=== PATIENT | female | born 1940 | race Caucasian/White ===

== ENCOUNTER 2020-07-13 07:25 | Day surgery (SDC) | payer MEDICARE, SELFPAY ==
[2020-06-20 14:17] VITALS: BMI 26.4
[2020-07-13] VITALS (7 sets, daily range): BP systolic 111–131; BP diastolic 49–95; PULSE 69–83; RESP 16; TEMP 36.1–36.6; O2SAT 98–100; BMI 28.8
--- NOTE | 2020-07-13 07:43 | HP.PCM_ITS ---
History and Physical Date of Admission: 07/13/20 Date of Service:? 06/20/20 MR#:[id number] Acct:[id number] Name:JANE QUEEN :1940 ?Age/Sex:?80/F Provider:Dr. Susi Low MD ? Rep #:[id number] Location:[facility] Status:Signed Intake Vital Signs ? 06/20/2113:17 Height 5 ft 1 in Weight: 140 lb BMI 26.4 BP 168/84 H Blood Pressure Location Rt brachial Position Sitting Respiration 16 Pulse 63 Pulse Source Monitor Temp 97.7 F L Temp Source Temporal Pulse Oximetry (%) 97 Oxygen Delivery Method room air Intake Visit Reasons:?[employer] Required: No Is patient in pain?: No Allergies No Known Allergies Allergy (Verified 06/20/20 14:18) Medications atenolol 50 mg-chlorthalidone 25 mg tablet 1 tab PO DAILY? tab 06/20/20 [History Confirmed 06/20/20] lovastatin 10 mg tablet 10 mg PO DAILY? tab 06/20/20 [History Confirmed 06/20/20] PFSH Medical History?(Updated 06/21/20 @ 09:[address] Susi Low MD) Arthritis Family history of colon cancer Hx of thyroid cancer Surgical History?(Updated 06/20/20 @ 14:13 by Maria Guadalupe Wolf) History of partial thyroidectomy History of tonsillectomy History of tubal ligation Hx of cataract extraction Hx of colonoscopy Family History?(Updated 06/20/20 @ 14:16 by Maria Guadalupe Wolf) Mother Colon cancer HypertensionSister Hypertension Breast cancerFather Heart disease HypertensionBrother Diabetes Social History?(Updated 06/20/20 @ 14:17 by Maria Guadalupe Wolf) alcohol intake:? current alcohol intake frequency: holidays/special occasions only substance use type:? does not use caffeine:? Yes what type of physical activity do you participate in:? none frequency:? does not exercise HPI HPI HPI: JANE MABRY, is a 80 F who presents to the office today for HPI HPI HPI: JANE MABRY, is a 80 F who presents to the office today for screening for colon cancer due to family history.? Patient's mom was diagnosed age 69 and at age 72 due to recurrence.? Patient states last colonoscopy was 7 to 8 years ago negative per patient.? Patient states she has bowel movements daily denies any blood denies any abdominal pain/nausea/vomiting/reflux. ROS Cardio Cardiovascular: No chest pain Psych Psychiatric: No depression or anxiety Gastro Gastrointestinal: No abdominal pain, No nausea or vomiting, No diarrhea, No constipation, No blood in stool, No acid reflux, No hemorrhoids, No ulcers, No gallbladder problem and No black,tarry stools Exam Const General: cooperative, healthy appearing, comfortable and no acute distress Neck Neck: normal visual inspection Resp Effort & Inspection: normal respiratory effort Cardio Rate: regular rate GI Inspection: non-distended Palpation: soft, no guarding and nontender Skin General: no rashes or lesions noted Neuro General: patient oriented x3 Psych Affect: normal affect COVID (Procedure Consent) Procedure Criteria Procedure Criteria: Yes Elective?The surgeon/proceduralist and patient have discussed in detail the risk of exposure to and/or potential harm posed by the COVID-19 virus with having a surgery/procedure at this time versus the risk of? delaying the surgery/procedure. It is not possible to know either the risk of delaying the surgery or procedure or chance of getting an infection with perfect accuracy, but a joint decision was made between the patient and the surgeon/proceduralist ?to proceed at this time with the scheduled surgery/procedure as indicated on the consent form. Assessment and Plan Assessment and Plan (1) Family history of colon cancer: ?Status:?Acute ?Plan - Dr. Susi Low MD: I have discussed the above with the patient. I have offered the patient colonoscopy for evaluation.? Patient requested 07/13 I have explained the risks/benefits of the procedure and described the procedure.? I have discussed the risks with the patient, including but not limited to:? infection, bleeding, perforation of the GI tract requiring emergency surgery, inability to complete the procedure, injury to any internal organs, complications of anesthesia, etc. - the patient understands and agrees to proceed. I have answered all the patient's questions to the patient's satisfaction and the patient has no further questions. The patient has been given instructions for the colon cleansing preparation.? 1 day clears, MiraLAX Dulcolax split prep Susi Low M.D. Pager: [phone] [facility] [address] [place] [address], [facility], [address] [place] [address] Office: [phone] Coding Level of Care Code Off vis,new,level 3 Diagnoses Family history of colon cancer? Z80.0 06/21/20 0921 <Electronically signed by Susi Low MD> Date Susi Low MD
[2020-07-13] MEDS: Lactated Ringers 1,000 ML 100 ML IV (07:55)
--- NOTE | 2020-07-13 09:03 | OP.CCLET_ITS ---
07/13/2020 Tian Cross Md Re : Colonoscopy procedure for Aileen Juarez [place] This procedure was performed on Monday, July 13, 2020. My impressions and recommendations are as follows: Impressions : - Diverticulosis in the sigmoid colon and in the descending colon. - The entire examined colon is normal on direct and retroflexion views. - No specimens collected. Recommendations : - Discharge patient to home. - Resume previous diet. - Continue present medications. - Repeat colonoscopy in 5 years for surveillance. My findings are described in the full procedure note, which is enclosed. If I can be of further assistance, please feel free to contact me at Doctor phone number(s): , Work: . Sincerely, MD Susi Claire MD 07/13/2020 9:03:06 AM This report has been signed electronically.
--- NOTE | 2020-07-13 09:03 | OP.COLON_ITS ---
Patient Name: Aileen Juarez Procedure Date: 07/13/2020 8:24 AM Date of : 1940 Age: 80 Procedure: Colonoscopy Indications: Family history of colon cancer in a first-degree relative Providers: Susi Low MD Referring MD: Tian Cross Md Medicines: Monitored Anesthesia Care Patient Profile: This is a 80 year old female. Last Colonoscopy: 7 years ago. Complications: No immediate complications. Procedure: Pre-Anesthesia Assessment: - Prior to the procedure, a History and Physical was performed, and patient medications and allergies were reviewed. The patient's tolerance of previous anesthesia was also reviewed. The risks and benefits of the procedure and the sedation options and risks were discussed with the patient. All questions were answered, and informed consent was obtained. Prior Anticoagulants: The patient has taken no previous anticoagulant or antiplatelet agents. ASA Grade Assessment: Per anesthesia. After reviewing the risks and benefits, the patient was deemed in satisfactory condition to undergo the procedure. After I obtained informed consent, the scope was passed under direct vision. Throughout the procedure, the patient's blood pressure, pulse, and oxygen saturations were monitored continuously. The colonoscope was introduced through the anus and advanced to the cecum, identified by the appendiceal orifice, ileocecal valve and palpation. The colonoscopy was performed without difficulty. The colonoscopy was somewhat difficult due to a tortuous colon. The patient tolerated the procedure well. The quality of the bowel preparation was good. Scope In: 8:34:05 AM Scope Withdrawal Time 0 hours 8 minutes 27 seconds Scope Out: 8:54:13 AM Total Procedure Duration Time 0 hours 20 minutes 8 seconds Findings: A few small-mouthed diverticula were found in the sigmoid colon and descending colon. The perianal and digital rectal examinations were normal. The entire examined colon appeared normal on direct and retroflexion views. Impression: - Diverticulosis in the sigmoid colon and in the descending colon. - The entire examined colon is normal on direct and retroflexion views. - No specimens collected. Recommendation: - Discharge patient to home. - Resume previous diet. - Continue present medications. - Repeat colonoscopy in 5 years for surveillance. Procedure Code(s): --- Professional --- 75985, PT, Colonoscopy, flexible; diagnostic, including collection of specimen(s) by brushing or washing, when performed (separate procedure) Diagnosis Code(s): --- Professional --- Z80.0, Family history of malignant neoplasm of digestive organs K57.30, Diverticulosis of large intestine without perforation or abscess without bleeding CPT copyright 2017 [employer]. All rights reserved. The codes documented in this report are preliminary and upon harbor [employer] police review may be revised to meet current compliance requirements. MD Susi Claire MD 07/13/2020 9:03:06 AM This report has been signed electronically. Number of Addenda: 0 Note Initiated On: 07/13/2020 8:24 AM
== END 2020-07-13 10:00 ==
LOC: EN 07:26 → AC 07:28
PROVIDERS: PCP Family Medicine; Referring Provider Family Medicine; Visit Provider Surgery
PROC: 0DJD8ZZ Inspection of Lower Intestinal Tract, Via Natural or Artificial Opening Endoscopic (ICD-10-PCS; CPT 45378; principal; 2020-07-13 08:40)
DX: Z12.11 Encounter for screening for malignant neoplasm of colon (principal); K57.30 Diverticulosis of large intestine without perforation or abscess without bleeding; M19.90 Unspecified osteoarthritis, unspecified site; I10 Essential (primary) hypertension; E78.00 Pure hypercholesterolemia, unspecified; Z79.899 Other long term (current) drug therapy; Z85.850 Personal history of malignant neoplasm of thyroid; Z86.718 Personal history of other venous thrombosis and embolism; Z97.0 Presence of artificial eye; Z80.0 Family history of malignant neoplasm of digestive organs
CPT/HCPCS: G0105; J7120; J2405

== ENCOUNTER → 2020-11-28 09:42 | Outpatient (CLI) | payer MEDICARE, SELFPAY ==
[2020-11-28 12:21] LABS: AST(SGOT) 21 U/L (15-37); Alanine Aminotransfer ALT/SGPT 25 U/L (13-56); Albumin, Serum 3.7 g/dL (3.2-5.0); Alkaline Phosphatase 60 U/L (45-117); Anion Gap 9 (5-15); BUN 24 mg/dL (7-18); BUN/Creat Ratio 20.9 RATIO (10-20); Calcium,Total 9.6 mg/dL (8.5-10.1); Chloride 95 mmol/L (98-107); Cholesterol 183 mg/dL (200); Creatinine, Serum 1.15 mg/dL (0.55-1.02); EST Glomerular Filtration Rate 48 mL/min (>60); Est Glom Filt Rate - Afr Amer 59 mL/min (>60); Globulin 3.8 g/dL (2.2-4.2); Glucose 82 mg/dL (74-106); High Density Lipoprotein 74 mg/dL; Potassium 4.1 mmol/L (3.5-5.1); Protein, Total 7.5 g/dL (6.4-8.2); Sodium Level 132 mmol/L (136-145); Triglycerides 55 mg/dL; Very Low Density Lipoprotein 11 mg/dL (5-40)
== END ==
PROVIDERS: PCP Family Medicine; Visit Provider Family Medicine
DX: I10 Essential (primary) hypertension (principal)
CPT/HCPCS: 36415; 80053; 80061

== ENCOUNTER → 2020-12-14 10:03 | Outpatient (CLI) | payer MEDICARE, SELFPAY ==
[2020-12-14 10:07] LABS: Mucous, Urine 0 SEEN /hpf (<or=2+); Red Blood Cells-Urine 0 SEEN /hpf (0-5); Squamous Epithelial Cells - UA 0 SEEN /hpf (5-10)
[2020-12-14 12:00] LABS: Absolute Neutrophil Count 3.3 X10^3/uL (2.0-7.7); Basophil# 0.04 X10^3/uL; Basophil% 0.8 % (0-1); Eosinophil# 0.33 X10^3/uL; Eosinophils% 6.3 % (0-5); Hematocrit 40.1 % (37-47); Hemoglobin 13.2 g/dL (12.0-15.0); Mean Corp Hgb Conc 32.9 g/dL (32-36); Mean Corpuscular Hgb 29.2 pg (27.0-32.0); Mean Corpuscular Volume 88.7 fL (81-99); Mean Platelet Vol. 12.7 fl (6.2-12.0); Monocyte# 0.49 X10^3/uL; Monocyte% 9.3 % (0-10); NRBC Flagged by Analyzer 0 % (0-5); Neutrophil # 3.27 X10^3/uL (2.7-7.7); Neutrophil % 62.2 % (47-70); Platelet Count 220 K/mm3 (150-450); RBC Distribution Width CV 11.9 % (11.6-14.6); RBC Distribution Width SD 38.8 fl (35.1-43.9); Red Blood Count 4.52 M/mm3 (4.2-5.4); White Blood Count 5.3 K/mm3 (4.4-11.0)
[2020-12-14 12:08] LABS: Color, Urine Yellow (Yellow); Glucose, Dipstick Normal (Normal); Ketone-Dipstick Negative (Negative); Leukocyte Esterase-Dipstick 25 /ul (Negative); Nitrite-Dipstick Negative (Negative); Occult Blood-Urine Negative /ul (Negative); Protein-Dipstick Negative (Negative); Urine Bilirubin Dipstick Negative (Negative); Urine Clarity Clear (Clear); Urine Urobilinogen Normal (Normal)
[2020-12-14 12:14] LABS: Bacteria 2+ /hpf (None Seen); White Blood Cells 0-5 SEEN /hpf (0-5)
[2020-12-14 12:28] LABS: Anion Gap 9 (5-15); BUN 23 mg/dL (7-18); BUN/Creat Ratio 23.9 RATIO (10-20); Calcium,Total 9.4 mg/dL (8.5-10.1); Chloride 95 mmol/L (98-107); Creatinine, Serum 0.96 mg/dL (0.55-1.02); EST Glomerular Filtration Rate 60 mL/min (>60); Est Glom Filt Rate - Afr Amer 72 mL/min (>60); Glucose 86 mg/dL (74-106); Phosphorus 2.9 mg/dL (2.5-4.9); Potassium 3.9 mmol/L (3.5-5.1); Sodium Level 131 mmol/L (136-145); Thyroid Stim Hormone (TSH) 2.32 uIU/mL (0.358-3.74)
[2020-12-14 13:28] LABS: Protein, Urine (Random) 17.3 mg/dL (<11.9); Protein:Creat Ratio 212 mg/g CRE (0-200)
[2020-12-14 13:28] LABS: PTHIN 45.3 pg/mL (18.4-80.1)
== END ==
PROVIDERS: PCP Family Medicine; Referring Provider Family Medicine; Visit Provider Family Medicine
DX: I12.9 Hypertensive chronic kidney disease with stage 1 through stage 4 chronic kidney disease, or unspecified chronic kidney disease (principal); N18.30 Chronic kidney disease, stage 3 unspecified
CPT/HCPCS: 36415; 80048; 81001; 82570; 83970; 84100; 84156; 84443; 85025

== ENCOUNTER → 2020-12-20 13:43 | Outpatient (CLI) | payer MEDICARE, SELFPAY ==
--- NOTE | 2020-12-20 13:52 | BD_ITS ---
STUDY: DUAL ENERGY X-RAY ABSORPTIOMETRY / DXA REASON FOR EXAM: Female, 80 years old. Z780. Patient is postmenopausal. TECHNIQUE: Bone Mineral Density (BMD) measurements of lumbar spine and bilateral hips were obtained. COMPARISON: None. FINDINGS: Lumbar Spine (L1-L4): g/cm2 (0.998) / T-score (-0.2) / Z-score (2.4) Findings are suggestive of normal bone density with a low fracture risk. Left Femur Total: g/cm2 (0.863) / T-score (-0.6) / Z-score (1.3) Left Femoral Neck: g/cm2 (0.758) / T-score (-0.8) / Z-score (1.4) Right Femur Total: g/cm2 (0.834) / T-score (-0.9) / Z-score (1.1) Right Femoral Neck: g/cm2 (0.686) / T-score (-1.5) / Z-score (0.8) BD/Dexa Bone Density Study IMPRESSION: The patient is considered osteopenic as outlined below according to [employer] (WHO) criteria with a low fracture risk. Reference Information: The T-score is the number of standard deviations above or below the standard which is normal for young adults at their peak bone mineral density. The World Health Organization (WHO) interprets the T-scores as follows: Above -1 Normal bone density Between -1 and -2.5 Osteopenia Equal to / or below -2.5 Osteoporosis As a practical clinical guideline, osteopenia may be graded as follows: Mild -1 through -1.5 Moderate -1.6 through -2.0 Severe -2.1 through -2.4 The Z-score is the number of standard deviations above or below age-matched controls. A Z-score of less than -1.5 would be considered abnormal. References: 1. NIH Osteoporosis and Related Bone Diseases www osteo.org 2. International Society for Clinical Densitometry www iscd.org 3. National Osteoporosis Foundation www nof.org Electronically Signed: Eliu Sloan MD at 12:56 EDT , Service support ,
== END ==
PROVIDERS: PCP Family Medicine; Visit Provider Family Medicine
DX: Z78.0 Asymptomatic menopausal state (principal); M85.80 Other specified disorders of bone density and structure, unspecified site
CPT/HCPCS: 77080

== ENCOUNTER → 2021-01-20 08:21 | Outpatient (CLI) | payer MEDICARE, SELFPAY ==
[2021-01-20 10:26] LABS: Anion Gap 5 (5-15); BUN 18 mg/dL (7-18); BUN/Creat Ratio 17.8 RATIO (10-20); Calcium,Total 10.1 mg/dL (8.5-10.1); Chloride 101 mmol/L (98-107); Creatinine, Serum 1.01 mg/dL (0.55-1.02); EST Glomerular Filtration Rate 56 mL/min (>60); Est Glom Filt Rate - Afr Amer 68 mL/min (>60); Glucose 88 mg/dL (74-106); Potassium 3.9 mmol/L (3.5-5.1); Sodium Level 136 mmol/L (136-145)
== END ==
PROVIDERS: PCP Family Medicine; Referring Provider Family Medicine; Visit Provider Family Medicine
DX: I10 Essential (primary) hypertension (principal)
CPT/HCPCS: 36415; 80048

== ENCOUNTER → 2021-07-03 | Outpatient (CLI) | payer MEDICARE, SELFPAY ==
[2021-07-03 12:24] LABS: Anion Gap 5 (5-15); BUN 18 mg/dL (7-18); BUN/Creat Ratio 17.3 RATIO (10-20); Calcium,Total 9.7 mg/dL (8.5-10.1); Chloride 100 mmol/L (98-107); Creatinine, Serum 1.04 mg/dL (0.55-1.02); EST Glomerular Filtration Rate 54 mL/min (>60); Est Glom Filt Rate - Afr Amer 66 mL/min (>60); Glucose 79 mg/dL (74-106); Potassium 3.9 mmol/L (3.5-5.1); Sodium Level 135 mmol/L (136-145)
== END | disposition home or self-care (01) ==
LOC: BIMLAB 10:31
PROVIDERS: PCP Internal Medicine; Referring Provider Internal Medicine; Visit Provider Internal Medicine
DX: I10 Essential (primary) hypertension (principal)
CPT/HCPCS: 36415; 80048

== ENCOUNTER → 2021-10-16 | Outpatient (CLI) | payer MEDICARE, SELFPAY ==
--- NOTE | 2021-10-16 07:03 | BI_ITS ---
MAMMOGRAPHY - BILATERAL SCREENING REASON FOR EXAM: Female, 81 years old. Routine annual screening examination. PERTINENT HISTORY: Sister with breast cancer. Aunt with breast cancer. TECHNIQUE: Digital bilateral breast eliz (3D mammographic acquisition) in the CC and MLO projections. 2-D mediolateral oblique (MLO) and craniocaudad (CC) views of both breasts were obtained. CAD: Full Field Digital Mammography with Computer Added Detection was performed. COMPARISON: No comparison mammograms available at this time. If any prior films become available, an addendum to this report can be generated. FINDINGS: Breast Composition: The breasts are heterogeneously dense, which may obscure small masses. There are no dominant masses or suspicious calcifications. Small benign-appearing bilateral axillary lymph nodes. No other significant abnormalities are identified. BI/SCRN MAMM (CAD)W/ELIZ BILAT IMPRESSION: Negative screening mammogram. Yearly followup mammogram recommended. (A) ASSESSMENT CATEGORY: BIRADS Category 2: Benign. A letter regarding these results will be sent to the patient by the facility within 30 days. Approximately 10% of breast cancers are not detected by mammography. A normal mammogram should not delay biopsy of a clinically suspicious abnormality. [id number] Electronically Signed: Eliu Sloan MD at 8:43 EDT ,
== END | disposition home or self-care (01) ==
LOC: OPBI 07:02
PROVIDERS: PCP Internal Medicine; Visit Provider Internal Medicine
DX: Z12.31 Encounter for screening mammogram for malignant neoplasm of breast (principal)
CPT/HCPCS: 77063; 77067

== ENCOUNTER → 2022-01-10 | Outpatient (CLI) | payer MEDICARE, SELFPAY ==
[2022-01-10 12:32] LABS: Absolute Lymphocyte Count 1.69 X10^3/uL (0.83-4.51); Absolute Neutrophil Count 4.3 X10^3/uL (2.0-7.7); Basophil# 0.04 X10^3/uL; Basophil% 0.6 % (0-1); Eosinophil# 0.15 X10^3/uL; Eosinophils% 2.2 % (0-5); Hematocrit 39.4 % (37-47); Lymphocyte # 1.69 X10^3/ul (0.83-4.51); Lymphocyte % 25.1 % (19-41); Mean Corpuscular Hgb 29.5 pg (27.0-32.0); Mean Corpuscular Volume 89.3 fL (81-99); Monocyte# 0.52 X10^3/uL; Monocyte% 7.7 % (0-10); NRBC Flagged by Analyzer 0 % (0-5); Neutrophil # 4.32 X10^3/uL (2.7-7.7); Neutrophil % 64.1 % (47-70); Platelet Count 247 K/mm3 (150-450); RBC Distribution Width SD 42.8 fl (35.1-43.9); Red Blood Count 4.41 M/mm3 (4.2-5.4); White Blood Count 6.7 K/mm3 (4.4-11.0)
[2022-01-10 13:02] LABS: ALB/GLOB Ratio 1.2 RATIO (0.9-2.4); AST(SGOT) 19 U/L (15-37); Alanine Aminotransfer ALT/SGPT 19 U/L (13-56); Albumin, Serum 3.7 g/dL (3.2-5.0); Alkaline Phosphatase 67 U/L (45-117); Anion Gap 5 (5-15); BUN 22 mg/dL (7-18); BUN/Creat Ratio 20.8 RATIO (10-20); Calcium,Total 9.8 mg/dL (8.5-10.1); Chloride 101 mmol/L (98-107); Cholesterol 176 mg/dL (200); Creatinine, Serum 1.06 mg/dL (0.55-1.02); EST Glomerular Filtration Rate 53 mL/min (>60); Est Glom Filt Rate - Afr Amer 64 mL/min (>60); Globulin 3.2 g/dL (2.2-4.2); Glucose 81 mg/dL (74-106); High Density Lipoprotein 70 mg/dL; Potassium 4.3 mmol/L (3.5-5.1); Protein, Total 6.9 g/dL (6.4-8.2); Sodium Level 137 mmol/L (136-145); Triglycerides 82 mg/dL; Very Low Density Lipoprotein 16 mg/dL (5-40)
== END | disposition home or self-care (01) ==
LOC: BIMLAB 11:27
PROVIDERS: PCP Internal Medicine; Referring Provider Internal Medicine; Visit Provider Internal Medicine
DX: I10 Essential (primary) hypertension (principal)
CPT/HCPCS: 36415; 80053; 80061; 85025

== ENCOUNTER → 2022-07-05 | Outpatient (CLI) | payer MEDICARE, SELFPAY ==
--- NOTE | 2022-07-05 06:35 | MRI_ITS ---
EXAM: MR LEFT UPPER EXTREMITY WITHOUT INTRAVENOUS CONTRAST, HUMERUS CLINICAL INDICATION: pain TECHNIQUE: Multiplanar and multisequence MR images of the right humerus without intravenous contrast. COMPARISON: No relevant prior studies available. FINDINGS: BONES/JOINTS: An os acromiale is present. No fracture. No joint effusion. No concerning marrow signal alterations. No labral tear. No concerning bone marrow signal alterations. MUSCLES: Muscles are normal. OTHER SOFT TISSUES: Suspect disrupted and retracted long of the biceps tendon. OTHER FINDINGS: No masses or fluid collections. Neurovascular structures are unremarkable. MRI/Upper Ext/No Jt/ wo IMPRESSION: No findings to explain pain. No significant internal derangement. Electronically Signed: Ty Reynolds MD at 21:23 EDT ,
== END | disposition home or self-care (01) ==
LOC: MRI 06:26
PROVIDERS: PCP Internal Medicine; Referring Provider Physician Assistant; Visit Provider Physician Assistant
DX: M79.18 Myalgia, other site (principal)
CPT/HCPCS: 73218

== ENCOUNTER → 2022-07-09 | Outpatient (CLI) | payer MEDICARE, SELFPAY ==
[2022-07-09 17:07] LABS: Anion Gap 9 (5-15); BUN 20 mg/dL (7-18); BUN/Creat Ratio 21.2 RATIO (10-20); Calcium,Total 9.6 mg/dL (8.5-10.1); Chloride 94 mmol/L (98-107); Creatinine, Serum 0.94 mg/dL (0.55-1.02); EST Glomerular Filtration Rate 61 mL/min (>60); Est Glom Filt Rate - Afr Amer 73 mL/min (>60); Glucose 105 mg/dL (74-106); Sodium Level 131 mmol/L (136-145); T4 Free Direct 1.03 ng/dL (0.76-1.46); Thyroid Stim Hormone (TSH) 1.73 uIU/mL (0.358-3.74)
== END | disposition home or self-care (01) ==
LOC: BIMLAB 15:23
PROVIDERS: PCP Internal Medicine; Referring Provider Internal Medicine; Visit Provider Internal Medicine
DX: E89.0 Postprocedural hypothyroidism (principal); I10 Essential (primary) hypertension
CPT/HCPCS: 36415; 80048; 84439; 84443

== ENCOUNTER 2022-08-06 12:16 | Emergency (ER) | payer MEDICARE, SELFPAY ==
[2022-08-06 12:17] VITALS: BP 181/103; PULSE 66; RESP 16; TEMP 36.3; O2SAT 98; BMI 30.4
--- NOTE | 2022-08-06 13:00 | CT_ITS ---
STUDY: CT BRAIN WITHOUT CONTRAST REASON FOR EXAM: Female, 82 years old. Head injury RADIATION DOSAGE (If Supplied By Facility): CTDIvol = ( 44.99 ) mGy, DLP = ( 829.85 ) mGycm TECHNIQUE: Transaxial CT imaging of the brain was performed without administration of intravenous contrast material. Individualized dose optimization techniques were used for this CT. COMPARISON: None. FINDINGS: PARENCHYMA: There is no acute bleed or infarct. There are normal white matter tracts. VENTRICLES: There is no hydrocephalus. ORBITS, MASTOID AIR CELLS AND PARANASAL SINUSES: The visualized paranasal sinuses are clear. The mastoid air cells are clear. 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 BONES: There is no skull fracture. SOFT TISSUES: There is scalp soft tissue swelling noted in the left posterior parietal region. CT/Brain/Head without Contrast IMPRESSION: No acute intracranial abnormality. Scalp soft tissue swelling in the left posterior parietal region. Electronically Signed: Hood Gagnon MD at 13:25 EDT ,
--- NOTE | 2022-08-06 14:30 | EX.ED.GENINJ ---
HPI History of Present Illness Chief Complaint: Head Injury Informant: patient Onset/Context/Timing Onset: Weeks (1) Mechanism/Context: Blunt Injury and Fall Quality of Pain: Dull Location: Occipital scalp Worsened by: Nothing Relieved by: Nothing Associated Symptoms Associated Symptoms: Negative for Parasthesias, Weakness, Loss of function, Inability to ambulate, Loss of consciousness or Amnesia Narrative Narrative: Patient presents with a head injury that occurred 1 week ago. Patient states she tripped and fell and hit the back of her head last week. Patient states her pain has been persistent. Patient describes it as dull. Patient states she still notices some swelling over her scalp area. Patient denies any loss of consciousness. Patient denies any paresthesias or weakness. Patient states nothing makes her pain better nothing makes it worse. Patient admits to some nausea but denies any vomiting. Patient denies any visual changes. [facility] Medical History Age-related cognitive decline Arthritis Bilateral impacted cerumen Breast cancer screening Cancer DVT (deep venous thrombosis) Easy bruising Family history of colon cancer Health care maintenance High cholesterol History of edema History of eye prosthesis Hx of thyroid cancer Hyperlipidemia Hypertension Leg cramps Loss of one eye Non-smoker Open wound of left forearm Osteoarthritis Stress at home Urinary tract infection Home Medications iunkneex-vtfiqnes-bny C 250 mg-herbal no.124 11.66 mg chewable tablet (Airborne Gummy) 1 tab PO DAILY 07/07/20 [History Last Taken Unknown] naproxen sodium 220 mg capsule (Aleve) 220 mg PO BID 07/07/20 [History Last Taken Unknown] calcium carbonate 600 mg calcium (1,500 mg) tablet (Calcium) 600 mg PO DAILY 06/20/21 [History Last Taken Unknown] cholecalciferol (vitamin D3) 25 mcg (1,000 unit) capsule 25 mcg PO DAILY 07/03/21 [History Last Taken Unknown] atenolol 50 mg-chlorthalidone 25 mg tablet 1 tab PO DAILY #90 tabs 10/04/21 [Rx Last Taken Unknown] lovastatin 10 mg tablet 10 mg PO DAILY #90 tabs 10/04/21 [Rx Last Taken Unknown] Allergy/AdvReac Type Severity Reaction Status Date / Time Penicillins Allergy Rash Verified 08/06/22 12:19 Sulfa (Sulfonamide Allergy Rash Verified 08/06/22 12:19 Antibiotics) Family History Mother Colon cancer Hypertension Sister Hypertension Breast cancer Father Heart disease Hypertension Brother Diabetes Surgical History History of partial thyroidectomy History of tonsillectomy History of tubal ligation Hx of cataract extraction Hx of colonoscopy Social History Smoking Status: Never smoker alcohol intake: current alcohol intake frequency: holidays/special occasions only substance use type: does not use caffeine: Yes what type of physical activity do you participate in: walking and other details: golf frequency: 1-2 times per week ROS ROS ED Constitutional Constitutional ED: Denies chills or fever(s) Eyes Eyes: Denies blurry vision or change in vision ENT ENT ED: Denies rhinorrhea or sore throat Cardiovascular Cardiovascular: Denies chest pain or palpitations Respiratory/Chest Respiratory/Chest: Denies cough or dyspnea Gastrointestinal Gastrointestinal: Reports nausea; Denies vomiting Genitourinary Genitourinary ED: Denies dysuria or hematuria Musculoskeletal Musculoskeletal: Reports neck pain; Denies back pain Integumentary Denies abscess or rash Neurologic Neurologic: Reports headache(s); Denies weakness Allergic/Immunologic Allergic/Immunologic ED: Denies mouth swelling or urticaria EXAM Physical Exam Const Vital Signs: 08/06/22 12:17 08/06/22 12:34 Temperature 97.4 F L Temperature Source Temporal Pulse Rate 66 Respiratory Rate 16 Respiratory Effort Normal Non-Labored Respiratory Pattern Normal Blood Pressure 181/103 H Blood Pressure Mean 129 Pulse Ox 98 Oxygen Delivery Method Room Air Positive well nourished and well developed General Appearance ED: well developed HEENT Reports moist mucous membranes HEENT Narrative: There is tenderness and a mild hematoma over the occipital scalp. There is no bony crepitance or step-off noted. There are no lacerations or abrasions noted. There is no bleeding noted. trauma and tenderness Neck supple and no JVD Resp normal respiratory effort and clear to auscultation bilaterally Cardio regular rate, regular rhythm and no murmurs GI normal to inspection, nondistended, normoactive bowel sounds and non-tender Palpation: soft Extremity normal to inspection General Extremety ED: Negative for edema or tenderness General Extremity: Negative for edema Neuro oriented x3, CN's II-XII intact bilaterally and no sensory deficits noted Sensorium / Orientation: alert Motor Exam: strength 5/5 throughout Psych mental status grossly normal Skin no rashes or lesions noted MDM MDM MDM Narrative Medical decision making narrative: Differential diagnosis includes closed head injury, intracranial bleeding, and concussion. CT scan of the brain will be obtained to assess for intracranial bleeding. Radiography Diagnostic Testing: Clinical Impression(s) from Imaging Studies Brain CT 08/06/22 13:00 IMPRESSION: No acute intracranial abnormality. Scalp soft tissue swelling in the left posterior parietal region. Electronically Signed: Hood Gagnon MD at 13:25 EDT , CT scan of the brain was obtained. There is no acute intracranial abnormality. There is soft tissue swelling of the scalp with a left posterior parietal/occipital region. This was interpreted by the radiologist and was also independently reviewed by myself. Treatment and Re-Evaluation Narrative: Patient was advised of her findings. Patient was given head injury instructions. Patient was instructed use ice to the area. Patient was instructed to take Tylenol or ibuprofen as needed for any pain. Patient was instructed to follow-up with her primary care physician in 5 to 7 days. Patient understood and was agreeable with the plan. All questions were answered. Discharge Plan Triage Chief Complaint: Head Injury ED Provider: Bernardino Sandoval Dx/Rx/DC Orders Clinical Impression: Closed head injury, Fall Instructions: ED Head Injury (Adult) Prescriptions: No Action calcium carbonate [Calcium 600] 600 mg calcium (1,500 mg) tablet 600 mg PO DAILY cholecalciferol (vitamin D3) 25 mcg (1,000 unit) capsule 25 mcg PO DAILY lovastatin 10 mg tablet 10 mg PO DAILY Qty: 90 3RF atenolol-chlorthalidone 50-25 mg tablet 1 tab PO DAILY Qty: 90 3RF naproxen sodium [Aleve] 220 mg Capsule 220 mg PO BID Airborne Gummy 250-11.66 mg Tablet,Chewable 1 tab PO DAILY Primary Care Provider: Stephane Titus Referrals: Stephane Titus MD [Primary Care Provider] - 3-5 Days Disposition Disposition: Home, Self Care Discharge Date/Time: 08/06/22 14:39
== END 2022-08-06 14:39 | disposition home or self-care (01) ==
PROVIDERS: Emergency Provider Emergency Medicine; PCP Internal Medicine; Visit Provider Emergency Medicine
DX: S00.03XA Contusion of scalp, initial encounter (principal); W19.XXXA Unspecified fall, initial encounter; I10 Essential (primary) hypertension; E78.00 Pure hypercholesterolemia, unspecified; Z79.899 Other long term (current) drug therapy
CPT/HCPCS: 70450; 99282

== ENCOUNTER → 2022-10-17 | Outpatient (CLI) | payer MEDICARE, SELFPAY ==
--- NOTE | 2022-10-17 07:29 | BI_ITS ---
MAMMOGRAPHY - BILATERAL SCREENING REASON FOR EXAM: Female, 82 years old. Routine annual screening examination. PERTINENT HISTORY: Sister with breast cancer. Aunt with breast cancer. TECHNIQUE: Digital bilateral breast eliz (3D mammographic acquisition) in the CC and MLO projections. 2-D mediolateral oblique (MLO) and craniocaudad (CC) views of both breasts were obtained. CAD: Full Field Digital Mammography with Computer Added Detection was performed. COMPARISON: Comparison is made with prior study October 16, 2021. FINDINGS: Breast Composition: The breasts are heterogeneously dense, which may obscure small masses. There are no dominant masses or suspicious calcifications. Stable small benign-appearing bilateral axillary lymph nodes. No other significant abnormalities are identified. There has been no significant change since the prior study. BI/SCRN MAMM (CAD)W/ELIZ BILAT IMPRESSION: Stable bilateral screening mammogram. Yearly follow-up mammogram recommended. (A) ASSESSMENT CATEGORY: BIRADS Category 2: Benign. A letter regarding these results will be sent to the patient by the facility within 30 days. Approximately 10% of breast cancers are not detected by mammography. A normal mammogram should not delay biopsy of a clinically suspicious abnormality. [id number] Electronically Signed: Eliu Sloan MD at 11:09 EDT ,
== END | disposition home or self-care (01) ==
LOC: OPBI 07:27
PROVIDERS: PCP Internal Medicine; Referring Provider Internal Medicine; Visit Provider Internal Medicine
DX: Z12.31 Encounter for screening mammogram for malignant neoplasm of breast (principal)
CPT/HCPCS: 77063; 77067

== ENCOUNTER → 2022-11-21 | Outpatient (CLI) | payer MEDICARE, SELFPAY ==
[2022-11-21 12:34] LABS: Absolute Lymphocyte Count 1.82 X10^3/uL (0.83-4.51); Absolute Neutrophil Count 4.5 X10^3/uL (2.0-7.7); Basophil# 0.06 X10^3/uL; Basophil% 0.9 % (0-1); Eosinophil# 0.13 X10^3/uL; Eosinophils% 1.9 % (0-5); Hematocrit 42.1 % (37-47); Hemoglobin 13.1 g/dL (12.0-15.0); Lymphocyte # 1.82 X10^3/ul (0.83-4.51); Lymphocyte % 26.1 % (19-41); Mean Corp Hgb Conc 31.1 g/dL (32-36); Mean Corpuscular Hgb 28.6 pg (27.0-32.0); Mean Corpuscular Volume 91.9 fL (81-99); Mean Platelet Vol. 12.3 fl (6.2-12.0); Monocyte# 0.42 X10^3/uL; NRBC Flagged by Analyzer 0 % (0-5); Neutrophil % 64.5 % (47-70); Platelet Count 292 K/mm3 (150-450); RBC Distribution Width CV 12.4 % (11.6-14.6); RBC Distribution Width SD 42.1 fl (35.1-43.9); Red Blood Count 4.58 M/mm3 (4.2-5.4)
[2022-11-21 12:57] LABS: ALB/GLOB Ratio 1.1 RATIO (0.9-2.4); AST(SGOT) 24 U/L (15-37); Alanine Aminotransfer ALT/SGPT 28 U/L (13-56); Alkaline Phosphatase 79 U/L (45-117); Anion Gap 6 (5-15); BUN 18 mg/dL (7-18); BUN/Creat Ratio 16.1 RATIO (10-20); Calcium,Total 9.3 mg/dL (8.5-10.1); Chloride 100 mmol/L (98-107); Cholesterol 169 mg/dL (200); Creatinine, Serum 1.12 mg/dL (0.55-1.02); EST Glomerular Filtration Rate 50 mL/min (>60); Est Glom Filt Rate - Afr Amer 60 mL/min (>60); Globulin 3.5 g/dL (2.2-4.2); Glucose 115 mg/dL (74-106); High Density Lipoprotein 72 mg/dL; Potassium 3.8 mmol/L (3.5-5.1); Protein, Total 7.5 g/dL (6.4-8.2); Sodium Level 134 mmol/L (136-145); Triglycerides 67 mg/dL; Very Low Density Lipoprotein 13 mg/dL (5-40)
== END | disposition home or self-care (01) ==
LOC: BIMLAB 10:04
PROVIDERS: PCP Internal Medicine; Referring Provider Internal Medicine; Visit Provider Internal Medicine
DX: I10 Essential (primary) hypertension (principal)
CPT/HCPCS: 36415; 80053; 80061; 85025

== ENCOUNTER → 2023-01-28 | Outpatient (CLI) | payer MEDICARE, SELFPAY ==
[2023-01-28 15:55] LABS: Anion Gap 7 (5-15); BUN 23 mg/dL (7-18); BUN/Creat Ratio 21.9 RATIO (10-20); Calcium,Total 9.2 mg/dL (8.5-10.1); Chloride 100 mmol/L (98-107); Creatinine, Serum 1.05 mg/dL (0.55-1.02); EST Glomerular Filtration Rate 54 mL/min (>60); Est Glom Filt Rate - Afr Amer 65 mL/min (>60); Glucose 104 mg/dL (74-106); Potassium 4.1 mmol/L (3.5-5.1); Sodium Level 136 mmol/L (136-145)
== END | disposition home or self-care (01) ==
LOC: BIMLAB 13:45
PROVIDERS: PCP Internal Medicine; Referring Provider Internal Medicine; Visit Provider Internal Medicine
DX: I10 Essential (primary) hypertension (principal)
CPT/HCPCS: 36415; 80048

== ENCOUNTER → 2023-05-29 | Outpatient (CLI) | payer MEDICARE, SELFPAY ==
[2023-05-29 12:12] LABS: Absolute Lymphocyte Count 1.38 X10^3/uL (0.83-4.51); Absolute Neutrophil Count 4.6 X10^3/uL (2.0-7.7); Basophil# 0.05 X10^3/uL; Basophil% 0.7 % (0-1); Eosinophil# 0.17 X10^3/uL; Eosinophils% 2.5 % (0-5); Hemoglobin 13.1 g/dL (12.0-15.0); Lymphocyte # 1.38 X10^3/ul (0.83-4.51); Lymphocyte % 20.6 % (19-41); Mean Corp Hgb Conc 31.2 g/dL (32-36); Mean Corpuscular Hgb 28.8 pg (27.0-32.0); Mean Corpuscular Volume 92.3 fL (81-99); Mean Platelet Vol. 12.2 fl (6.2-12.0); Monocyte# 0.51 X10^3/uL; Monocyte% 7.6 % (0-10); NRBC Flagged by Analyzer 0 % (0-5); Neutrophil # 4.57 X10^3/uL (2.7-7.7); Neutrophil % 68.3 % (47-70); Platelet Count 300 K/mm3 (150-450); RBC Distribution Width CV 12.6 % (11.6-14.6); RBC Distribution Width SD 42.7 fl (35.1-43.9); Red Blood Count 4.55 M/mm3 (4.2-5.4); White Blood Count 6.7 K/mm3 (4.4-11.0)
[2023-05-29 13:17] LABS: AST(SGOT) 27 U/L (15-37); Alanine Aminotransfer ALT/SGPT 23 U/L (13-56); Albumin, Serum 3.9 g/dL (3.2-5.0); Alkaline Phosphatase 73 U/L (45-117); Anion Gap 6 (5-15); BUN 21 mg/dL (7-18); BUN/Creat Ratio 18.1 RATIO (10-20); Calcium,Total 9.9 mg/dL (8.5-10.1); Chloride 104 mmol/L (98-107); Creatinine, Serum 1.16 mg/dL (0.55-1.02); EST Glomerular Filtration Rate 48 mL/min (>60); Est Glom Filt Rate - Afr Amer 58 mL/min (>60); Glucose 89 mg/dL (74-106); Potassium 4.5 mmol/L (3.5-5.1); Protein, Total 7.9 g/dL (6.4-8.2); Sodium Level 137 mmol/L (136-145)
== END | disposition home or self-care (01) ==
LOC: BIMLAB 09:31
PROVIDERS: PCP Internal Medicine; Referring Provider Internal Medicine; Visit Provider Internal Medicine
DX: I10 Essential (primary) hypertension (principal); E78.5 Hyperlipidemia, unspecified
CPT/HCPCS: 36415; 80053; 85025

== ENCOUNTER → 2023-06-11 | Outpatient (CLI) | payer MEDICARE, SELFPAY | END | disposition home or self-care (01) | LOC: LABSPEC 08:33 | PROVIDERS: PCP Internal Medicine; Visit Provider Internal Medicine | DX: R19.4 Change in bowel habit (principal); R10.9 Unspecified abdominal pain | CPT/HCPCS: 87493 ==

== ENCOUNTER → 2023-06-12 | Outpatient (CLI) | payer MEDICARE, SELFPAY ==
--- NOTE | 2023-06-12 16:56 | CT_ITS ---
STUDY: CT ABDOMEN AND PELVIS WITH CONTRAST REASON FOR EXAM: Female, 83 years old. Abdominal Pain, Change in bowel movement RADIATION DOSAGE (If Supplied By Facility): CTDIvol = ( 14.22 ) mGy, DLP = ( 875.23 ) mGycm TECHNIQUE: Transaxial images were obtained from the dome of the diaphragm to the symphysis pubis with oral contrast. Oral and amp; IV Readi-CAT and amp; 100mL Isovue-300 was administered. Sagittal and coronal images were reconstructed. Individualized dose optimization techniques were used for this CT. COMPARISON: None. FINDINGS: There is a 1.8 cm x 1.2 cm noncalcified nodule in the posterior medial aspect of the right lower lobe. Correlation with a dedicated CT scan of the thorax is recommended for further evaluation. No coronary calcification is seen. Normal liver. Normal gallbladder and extrahepatic biliary system. Normal spleen. Normal pancreas. 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 Normal right kidney. Normal left kidney. The stomach is filled with residual food particles and oral contrast. Normal small intestine. Moderate amount of fecal material is seen in the colon. Scattered sigmoid diverticula. The appendix is visualized and appears normal. Normal abdominal aorta. Normal inferior vena cava. Normal retroperitoneum. Normal urinary bladder. Normal abdominal wall. There are diffuse degenerative changes of the visualized lumbar spine. Straightening of the normal lumbar lordosis. CT/Abdomen/Pelvis WITH Contrast IMPRESSION: 1.8 cm x 1.2 cm noncalcified nodule in the posterior medial aspect of the right lower lobe. Correlation with a dedicated CT scan of the chest is recommended. Sigmoid diverticulosis. Stomach is filled with oral contrast and residual food particles. Electronically Signed: Eliu Sloan MD at 13:52 EDT ,
== END | disposition home or self-care (01) ==
PROVIDERS: PCP Internal Medicine; Referring Provider Internal Medicine; Visit Provider Internal Medicine
DX: R10.9 Unspecified abdominal pain (principal); Z80.0 Family history of malignant neoplasm of digestive organs; R19.4 Change in bowel habit
CPT/HCPCS: 74177; Q9967

== ENCOUNTER → 2023-06-13 | Outpatient (CLI) | payer MEDICARE, SELFPAY ==
[2023-06-13 17:29] LABS: Thyroid Stim Hormone (TSH) 2.19 uIU/mL (0.358-3.74)
== END | disposition home or self-care (01) ==
LOC: BIMLAB 15:18
PROVIDERS: PCP Internal Medicine; Visit Provider Internal Medicine
DX: R19.7 Diarrhea, unspecified (principal)
CPT/HCPCS: 36415; 84439; 84443

== ENCOUNTER → 2023-06-14 | Outpatient (CLI) | payer MEDICARE, SELFPAY | END | disposition home or self-care (01) | PROVIDERS: PCP Internal Medicine; Visit Provider Internal Medicine | DX: R19.7 Diarrhea, unspecified (principal); R19.4 Change in bowel habit | CPT/HCPCS: 82274; 83630 ==

== ENCOUNTER → 2023-06-24 | Outpatient (CLI) | payer MEDICARE, SELFPAY ==
[2023-06-26 15:09] LABS: Endomysial Antibody IgA Negative (Negative); Immunoglobulin A 113 mg/dL (64-422); t-Transglutaminase IgA <2 U/mL (0-3)
== END | disposition home or self-care (01) ==
PROVIDERS: PCP Internal Medicine; Referring Provider Internal Medicine Gastroenterology; Visit Provider Internal Medicine Gastroenterology
DX: R19.7 Diarrhea, unspecified (principal)
CPT/HCPCS: 36415; 82784; 83516; 86140; 86255

== ENCOUNTER → 2023-07-05 | Outpatient (CLI) | payer MEDICARE, SELFPAY ==
--- NOTE | 2023-07-05 13:50 | CT_ITS ---
EXAM: CT CHEST WITHOUT INTRAVENOUS CONTRAST CLINICAL INDICATION: Right Lung Nodule. Abnormal CT TECHNIQUE: Helically acquired images were obtained of the chest without intravenous contrast. This CT exam was performed using one or more of the following dose reduction techniques: automated exposure control, adjustment of the mA and/or kV according to patient size, and/or use of iterative reconstruction technique. RADIATION DOSE: CTDIvol = 9.13 mGy, DLP = 285.08 mGy-cm COMPARISON: CT abdomen and pelvis with contrast 06/12/2023. FINDINGS: LUNGS AND PLEURAL SPACES: 2.1 x 1.3 cm noncalcified and indeterminate subpleural nodule in the right posterior medial lung base. This is a solitary pulmonary nodule. Calcified granuloma in the right peripheral lung base. No pneumothorax. No other suspicious pulmonary nodules. HEART: Unremarkable. Heart size is normal. No pericardial effusion. No significant coronary artery calcifications. MEDIASTINUM: Unremarkable. No mediastinal or hilar adenopathy. Esophagus is unremarkable. No hiatal hernia. THYROID: Unremarkable. No thyroid lesions. BONES/JOINTS: T11-T12 degenerative disc space height narrowing with degenerative vacuum phenomena. No acute fractures. No lytic or blastic lesions. VASCULATURE: Unremarkable. Thoracic aorta is non-dilated. CT/Chest without Contrast IMPRESSION: 2.1 x 1.3 cm noncalcified and indeterminate subpleural nodule in the right posterior medial lung base. For low-risk or high-risk patients consider a follow-up chest CT at 3 months. If unchanged consider an additional follow-up CT at 18-24 months. Alternatively (or additionally) PET/CT or tissue sampling could be performed. Electronically Signed: Eric Cowan MD at 16:02 EDT ,
== END | disposition home or self-care (01) ==
PROVIDERS: PCP Internal Medicine; Referring Provider Internal Medicine; Visit Provider Internal Medicine
DX: R91.1 Solitary pulmonary nodule (principal); R93.89 Abnormal findings on diagnostic imaging of other specified body structures
CPT/HCPCS: 71250

== ENCOUNTER → 2023-08-28 | Outpatient (CLI) | payer MEDICARE, SELFPAY ==
[2023-08-28 13:06] LABS: Anion Gap 4 (5-15); BUN 31 mg/dL (7-18); BUN/Creat Ratio 23.3 RATIO (10-20); Calcium,Total 9.8 mg/dL (8.5-10.1); Chloride 102 mmol/L (98-107); Creatinine, Serum 1.33 mg/dL (0.55-1.02); EST Glomerular Filtration Rate 41 mL/min (>60); Est Glom Filt Rate - Afr Amer 49 mL/min (>60); Glucose 75 mg/dL (74-106); Potassium 4.4 mmol/L (3.5-5.1); Sodium Level 137 mmol/L (136-145)
== END | disposition home or self-care (01) ==
LOC: BIMLAB 09:46
PROVIDERS: PCP Internal Medicine; Referring Provider Internal Medicine; Visit Provider Internal Medicine
DX: I10 Essential (primary) hypertension (principal)
CPT/HCPCS: 36415; 80048

== ENCOUNTER → 2023-10-08 | Outpatient (CLI) | payer MEDICARE, SELFPAY ==
--- NOTE | 2023-10-08 07:54 | CT_ITS ---
STUDY: CT CHEST WITHOUT CONTRAST REASON FOR EXAM: Female, 83 years old. 3 mth FU Lung Nodule RADIATION DOSAGE (If Supplied By Facility): CTDIvol = ( 11.90 ) mGy, DLP = ( 395.47 ) mGycm TECHNIQUE: Transaxial imaging was performed without the administration of intravenous contrast material. Individualized dose optimization techniques were used for this CT. COMPARISON: Comparison is made with prior study dated July 05, 2023. FINDINGS: CHEST Once again, there is evidence of a 1.9 cm x 1.5 cm noncalcified rounded nodule in the posterior segment of the right lower lobe. This most likely is benign in nature although correlation with a PET scan is recommended for further evaluation. Stable mild scarring at the lung bases. Stable calcified granuloma in the right peripheral lung base. There is no demonstrated pleural abnormality. There are calcifications of the coronary arteries. Normal mediastinum. Normal hilar regions. Normal unenhanced pulmonary arteries. There is atherosclerotic calcification of the aortic arch. There are degenerative changes of the thoracic spine. Left adrenal hyperplasia. CT/Chest without Contrast IMPRESSION: Stable examination. The nodules most likely benign in nature although correlation with a PET scan recommended. Electronically Signed: Eliu Sloan MD at 16:00 EDT ,
== END | disposition home or self-care (01) ==
PROVIDERS: PCP Internal Medicine; Referring Provider Internal Medicine; Visit Provider Internal Medicine
DX: R93.89 Abnormal findings on diagnostic imaging of other specified body structures (principal); R91.1 Solitary pulmonary nodule
CPT/HCPCS: 71250

== ENCOUNTER → 2023-11-12 | Outpatient (CLI) | payer MEDICARE, SELFPAY ==
--- NOTE | 2023-11-12 10:00 | PET_ITS ---
EXAMINATION: FDG-PET/CT ? INDICATIONS: 83-year-old female with a history of pulmonary nodularity. ? COMPARISON EXAMINATION: CT of the chest dated 10/08/2023. TECHNIQUE: Following the intravenous administration of 15.6 mCi of F-18 deoxyglucose via the left antecubital fossa, multiplanar image acquisitions of the head, neck, chest, abdomen and pelvis to the level of the midthigh, obtained at one-hour post radiopharmaceutical administration contemporaneously interpreted with the current CT of the chest, abdomen and pelvis dated 11/12/[address] of the chest dated 10/08/2023 via coregistration reveal: ? SERUM GLUCOSE LEVEL:? 94 mg/dL? HEIGHT:?? 60 inches WEIGHT:?? 160 pounds ? FINDINGS: ? HEAD/NECK:? There is no evidence of abnormal increased glucose metabolism in the pharyngeal mucosal space, parapharyngeal space, oropharynx, bilateral-lateral and anterior neck, hypopharynx and distribution of the larynx. ? The visualized portion of the cerebral cortical-subcortical structures demonstrate symmetric and preserved glucose metabolism. ? CHEST:? There is no quantitative scintigraphic evidence of abnormal increased glucose metabolism within the context of the bilateral hemithorax pulmonary parenchyma, right and left hemithorax at the pleural interface, mediastinal structures, and left-right thoracic perihilum. The left ventricular myocardium visualization is consistent with the [place]. ? CT of the chest demonstrates the following anatomic characteristics: An ovoid noncalcified nodular density noted in the right lower posteromedial lung zone demonstrates no evidence of quantitatively significant increased FDG uptake. Bilateral axillary soft tissue densities are ametabolic.? Minimal coronary artery calcification is observed.? Atherosclerotic calcification is defined in the thoracic aorta. Calcified and noncalcified mediastinal soft tissue densities are ametabolic. ? ABDOMEN/PELVIS:? Normal physiologic distribution of the radiopharmaceutical is identified in the hepatic and splenic parenchyma, both renal units, urinary bladder, and visualized intestinal tract. Diffuse intestinal tract is identified in all four quadrants of the abdominal-pelvic mesentery. ? CT of the abdomen and pelvis is remarkable for the following: Atherosclerotic calcification is defined in the abdominal aorta without evidence of dilatation, aneurysm formation. Pelvic arterial calcification is observed. Calcification is manifest within the uterus. Colonic diverticulosis is noted without evidence of diverticulitis. ? SKELETAL:? There is no evidence of quantitatively significant enhanced glucose metabolism on meticulous inspection of the appendicular and axial skeletal structures. ? Degenerative changes defined in the thoracic and lumbar spine demonstrate no evidence of increased glucose metabolism. There are no sclerotic, mixed sclerotic-lytic, or primarily lytic changes defined in the axial skeletal structures with evidence of increased FDG uptake. ? PET/PET/CT Tumor Base -Thigh Init IMPRESSION: 1. NEGATIVE EXAMINATION. There is no definitive quantitative scintigraphic evidence of viable neoplasm. 2. Meticulous attention paid to the right lower posteromedial lung zone demonstrates no evidence of quantitatively significant increased FDG uptake to correlate with the parenchymal density-nodule defined on CT of the thorax dated 11/12/2023. 3. Anatomic stability may be ensured with repeat FDG-PET CT of the right lower posteromedial lung zone in 3-6 months if clinically indicated. (Annalise, Seminars in Thoracic and Cardiovascular surgery, 14:292, 2002). Electronic Signature Gray Eaton D.O. Accurate Quantification of SUVs for this report are calculated using the exclusive [employer]. ([place]. Patent No. [id number] [id number] B2 [phone] [place] patent [phone]). Standardization and correction of the FDG SUV metric via [employer] technology allow for vendor non-specific objective quantitative examination comparison and optimization of the sensitivity and specificity of the FDG PET-CT examination. [email or web address] ? Electronically Signed: Gray Eaton DO at 7:47 EDT ,
== END | disposition home or self-care (01) ==
PROVIDERS: PCP Internal Medicine; Referring Provider Internal Medicine; Visit Provider Internal Medicine
DX: R91.1 Solitary pulmonary nodule (principal)
CPT/HCPCS: 78815; A9552

== ENCOUNTER → 2023-11-29 | Outpatient (CLI) | payer MEDICARE, SELFPAY ==
[2023-11-29 12:52] LABS: AST(SGOT) 23 U/L (15-37); Alanine Aminotransfer ALT/SGPT 20 U/L (13-56); Albumin, Serum 3.6 g/dL (3.2-5.0); Alkaline Phosphatase 74 U/L (45-117); Anion Gap 5 (5-15); BUN 26 mg/dL (7-18); BUN/Creat Ratio 22.8 RATIO (10-20); Calcium,Total 9.8 mg/dL (8.5-10.1); Chloride 104 mmol/L (98-107); Cholesterol 177 mg/dL (200); Creatinine, Serum 1.14 mg/dL (0.55-1.02); EST Glomerular Filtration Rate 49 mL/min (>60); Est Glom Filt Rate - Afr Amer 59 mL/min (>60); Globulin 3.6 g/dL (2.2-4.2); Glucose 85 mg/dL (74-106); High Density Lipoprotein 68 mg/dL; Potassium 4.5 mmol/L (3.5-5.1); Protein, Total 7.2 g/dL (6.4-8.2); Sodium Level 137 mmol/L (136-145); Triglycerides 97 mg/dL; Very Low Density Lipoprotein 19 mg/dL (5-40)
== END | disposition home or self-care (01) ==
LOC: BIMLAB 10:12
PROVIDERS: PCP Internal Medicine; Referring Provider Internal Medicine; Visit Provider Internal Medicine
DX: I10 Essential (primary) hypertension (principal); E78.5 Hyperlipidemia, unspecified; M85.80 Other specified disorders of bone density and structure, unspecified site
CPT/HCPCS: 36415; 80053; 80061; 82306

== ENCOUNTER → 2024-06-03 | Outpatient (CLI) | payer MEDICARE, SELFPAY ==
--- NOTE | 2024-06-03 15:42 | RAD_ITS ---
PROCEDURE: L/S SPINE MIN 4 VIEWS 06/03/2024 REASON FOR EXAM: CHRONIC BACK PAIN TECHNIQUE: Four views of the lumbosacral spine were obtained. COMPARISON: None FINDINGS: Vertebrae: No acute fracture. The lumbar vertebral body heights are preserved. Discs: Advanced multilevel disc space narrowing with endplate osteophytes. Alignment: Straightening of the lumbar alignment likely due to positioning. Other: RAD/L/S Spine Min 4 Views IMPRESSION: Degenerative changes of the lumbar spine as described above. No acute fracture . Reading Location: [facility]
[2024-06-03 16:53] LABS: Absolute Lymphocyte Count 1.91 X10^3/uL (0.83-4.51); Absolute Neutrophil Count 5.4 X10^3/uL (2.0-7.7); Basophil# 0.04 X10^3/uL; Basophil% 0.5 % (0-1); Eosinophil# 0.12 X10^3/uL; Eosinophils% 1.5 % (0-5); Hematocrit 37.8 % (37-47); Hemoglobin 12.6 g/dL (12.0-15.0); Lymphocyte # 1.91 X10^3/ul (0.83-4.51); Lymphocyte % 23.4 % (19-41); Mean Corp Hgb Conc 33.3 g/dL (32-36); Mean Corpuscular Hgb 29.9 pg (27.0-32.0); Mean Corpuscular Volume 89.8 fL (81-99); Mean Platelet Vol. 12.4 fl (6.2-12.0); Monocyte# 0.65 X10^3/uL; NRBC Flagged by Analyzer 0 % (0-5); Neutrophil # 5.42 X10^3/uL (2.7-7.7); Neutrophil % 66.2 % (47-70); Platelet Count 265 K/mm3 (150-450); RBC Distribution Width CV 12.7 % (11.6-14.6); RBC Distribution Width SD 41.6 fl (35.1-43.9); Red Blood Count 4.21 M/mm3 (4.2-5.4); White Blood Count 8.2 K/mm3 (4.4-11.0)
[2024-06-03 17:27] LABS: ALB/GLOB Ratio 1.5 RATIO (0.9-2.4); AST(SGOT) 25 U/L (<=31); Alanine Aminotransfer ALT/SGPT 16 U/L (<=34); Albumin, Serum 4.3 g/dL (3.4-4.8); Alkaline Phosphatase 65 U/L (35-104); Anion Gap 11 (5-15); BUN 22 mg/dL (4-19); Calcium,Total 9.8 mg/dL (7.6-11.0); Carbon Dioxide 25.9 mmol/L (21.0-32.0); Chloride 98 mmol/L (98-108); Creatinine, Serum 1.13 mg/dL (0.70-1.20); EST Glomerular Filtration Rate 49 (>60); Globulin 2.8 g/dL (2.2-4.2); Glucose 95 mg/dL (70-99); Potassium 3.7 mmol/L (3.3-5.1); Protein, Total 7.1 g/dL (5.9-8.4); Sodium Level 135 mmol/L (133-145); Total Bilirubin < 0.15 mg/dL (0.00-1.30)
== END | disposition home or self-care (01) ==
PROVIDERS: PCP Internal Medicine; Referring Provider Internal Medicine; Visit Provider Internal Medicine
DX: M54.9 Dorsalgia, unspecified (principal); G89.29 Other chronic pain; I10 Essential (primary) hypertension
CPT/HCPCS: 36415; 72110; 80053; 85025

== ENCOUNTER → 2024-06-10 | Outpatient (CLI) | payer MEDICARE, SELFPAY ==
[2024-06-10 15:53] LABS: Absolute Neutrophil Count 12.1 X10^3/uL (2.0-7.7); Basophil# 0.02 X10^3/uL; Basophil% 0.1 % (0-1); Hematocrit 38.9 % (37-47); Hemoglobin 12.9 g/dL (12.0-15.0); Lymphocyte % 13.2 % (19-41); Mean Corp Hgb Conc 33.2 g/dL (32-36); Mean Corpuscular Hgb 29.4 pg (27.0-32.0); Mean Corpuscular Volume 88.6 fL (81-99); Mean Platelet Vol. 12.1 fl (6.2-12.0); Monocyte# 0.99 X10^3/uL; Monocyte% 6.5 % (0-10); NRBC Flagged by Analyzer 0 % (0-5); Neutrophil # 12.05 X10^3/uL (2.7-7.7); Neutrophil % 79.7 % (47-70); Platelet Count 299 K/mm3 (150-450); RBC Distribution Width CV 12.4 % (11.6-14.6); RBC Distribution Width SD 40.9 fl (35.1-43.9); Red Blood Count 4.39 M/mm3 (4.2-5.4); White Blood Count 15.1 K/mm3 (4.4-11.0)
[2024-06-10 16:54] LABS: ALB/GLOB Ratio 1.5 RATIO (0.9-2.4); AST(SGOT) 25 U/L (<=31); Alanine Aminotransfer ALT/SGPT 16 U/L (<=34); Albumin, Serum 4.2 g/dL (3.4-4.8); Alkaline Phosphatase 74 U/L (35-104); Anion Gap 14 (5-15); BUN 29 mg/dL (4-19); BUN/Creat Ratio 25.5 RATIO (10-20); Calcium,Total 9.7 mg/dL (7.6-11.0); Carbon Dioxide 22.9 mmol/L (21.0-32.0); Chloride 96 mmol/L (98-108); Creatinine, Serum 1.13 mg/dL (0.70-1.20); EST Glomerular Filtration Rate 49 (>60); Globulin 2.9 g/dL (2.2-4.2); Glucose 118 mg/dL (70-99); Potassium 3.5 mmol/L (3.3-5.1); Protein, Total 7.1 g/dL (5.9-8.4); Sodium Level 132 mmol/L (133-145); Total Bilirubin 0.21 mg/dL (0.00-1.30)
[2024-06-10 17:23] LABS: CRP < 3.00 mg/L (0.0-3.0)
[2024-06-12 11:08] LABS: ANTINUCLEAR ANTIBODIES DIRECT Negative (Negative)
[2024-06-12 14:08] LABS: CCP IgG Antibodies 8 units (0-19)
== END | disposition home or self-care (01) ==
LOC: LAB 14:04
PROVIDERS: PCP Internal Medicine; Referring Provider Podiatrist; Visit Provider Podiatrist
DX: R22.42 Localized swelling, mass and lump, left lower limb (principal)
CPT/HCPCS: 36415; 80053; 85025; 85652; 86038; 86060; 86140; 86200; 86225; 86235; 86256; 86332; 86431

== ENCOUNTER → 2024-09-02 | Outpatient (CLI) | payer MEDICARE, SELFPAY ==
--- NOTE | 2024-09-02 14:47 | RAD_ITS ---
EXAM: XR Lumbosacral Spine, 2 or 3 Views CLINICAL INDICATION: CHRONIC BACK PAIN TECHNIQUE: Frontal and lateral views of the lumbar spine and sacrum. COMPARISON: No relevant prior studies available. FINDINGS: VERTEBRAE: S shaped scoliosis. Degenerative facet arthropathy throughout the lumbar spine, most prominent in the lower lumbar spine. Normal alignment. No acute fracture. SACRUM/COCCYX: Unremarkable as visualized. No acute fracture. DISC SPACES: Degenerative disc disease throughout the lumbar spine. SOFT TISSUES: Unremarkable. RAD/Lumbar Spine 2 or 3 Views IMPRESSION: 1. No acute fracture. 2. Degenerative changes lumbar spine as described. Reading Location[facility]
--- NOTE | 2024-09-02 14:47 | RAD_ITS ---
EXAM: XR Lumbosacral Spine, 2 or 3 Views CLINICAL INDICATION: CHRONIC BACK PAIN TECHNIQUE: Frontal and lateral views of the lumbar spine and sacrum. COMPARISON: No relevant prior studies available. FINDINGS: VERTEBRAE: S shaped scoliosis. Degenerative facet arthropathy throughout the lumbar spine, most prominent in the lower lumbar spine. Normal alignment. No acute fracture. SACRUM/COCCYX: Unremarkable as visualized. No acute fracture. DISC SPACES: Degenerative disc disease throughout the lumbar spine. SOFT TISSUES: Unremarkable. RAD/Lumbar Spine 2 or 3 Views IMPRESSION: 1. No acute fracture. 2. Degenerative changes lumbar spine as described. Reading Location[facility]
[2024-09-02 17:50] LABS: Hematocrit 36.7 % (37-47); Hemoglobin 12.0 g/dL (12.0-15.0); Immature Granulocytes Count 0.030 X10^3/uL (0.0-0.0); Mean Corp Hgb Conc 32.7 g/dL (32-36); Mean Corpuscular Volume 91.1 fL (81-99); Mean Platelet Vol. 12.3 fl (6.2-12.0); NRBC Flagged by Analyzer 0 % (0-5); Platelet Count 259 K/mm3 (150-450); RBC Distribution Width CV 12.1 % (11.6-14.6); RBC Distribution Width SD 40.4 fl (35.1-43.9); Red Blood Count 4.03 M/mm3 (4.2-5.4); White Blood Count 7.1 K/mm3 (4.4-11.0)
[2024-09-02 18:49] LABS: Anion Gap 14 (5-15); BUN 22 mg/dL (4-19); BUN/Creat Ratio 18.5 RATIO (10-20); Calcium,Total 9.9 mg/dL (7.6-11.0); Carbon Dioxide 25.2 mmol/L (21.0-32.0); Chloride 94 mmol/L (98-108); Cholesterol 185 mg/dL (<=200); Glucose 77 mg/dL (70-99); Low Density Lipoprotein Calc. 93 mg/dL; Potassium 3.8 mmol/L (3.3-5.1); Triglycerides 114 mg/dL; Very Low Density Lipoprotein 23 mg/dL (5-40); cholesterol:hdl ratio screen 2.65
== END | disposition home or self-care (01) ==
LOC: MTLAB 14:44
PROVIDERS: PCP Internal Medicine; Referring Provider Internal Medicine; Visit Provider Internal Medicine
DX: M54.9 Dorsalgia, unspecified (principal); G89.29 Other chronic pain; I10 Essential (primary) hypertension; R76.8 Other specified abnormal immunological findings in serum
CPT/HCPCS: 36415; 72100; 80048; 80061; 85025; 86200; 86431

== ENCOUNTER → 2024-10-13 | Outpatient (CLI) | payer MEDICARE, SELFPAY ==
--- NOTE | 2024-10-13 15:19 | MRI_ITS ---
PROCEDURE: SPINE LUMBAR (ROUTINE) 10/13/2024 REASON FOR EXAM: LUMBAR SPONDYLOSIS TECHNIQUE: Procedure Code: MRISPL Modality: MR Procedure: SPINE LUMBAR (ROUTINE) COMPARISON: None. FINDINGS: Vertebrae: Preserved in height and signal. Alignment: Normal. Conus Medullaris: Normal. L1-2: Disc desiccation. Disc bulge. Facet joint arthropathy with fluid effusion. Mild inferior bilateral foramina stenosis. Mild canal stenosis. L2-3: Disc desiccation. Disc bulge. Facet joint arthropathy. Ligamentum flavum hypertrophy. Moderate bilateral foramina stenosis. Severe canal stenosis. L3-4: Disc desiccation. Disc bulge. Facet joint arthropathy. Facet joint effusion. Severe canal stenosis. Moderate bilateral foramina stenosis. L4-5: Disc desiccation. Disc bulge. Facet joint arthropathy. Moderate bilateral foramina stenosis. Moderate canal stenosis. L5-S1: Disc bulge. Facet joint arthropathy. No significant foraminal or canal stenosis. Sacrum: No acute bony findings. Tarlov cysts noted. MRI/Spine Lumbar (Routine) IMPRESSION: Multilevel degenerate changes of the lumbar spine predominantly for severe shabana l stenosis at L2-L3, L3-L4 where there is severe canal stenosis and moderate bilateral foramina stenosis. Reading Location: [id number]
--- OUTSIDE RECORDS SUMMARY | 2024-10-13 22:11 | XMS RPT_ITS | CCD ---
Author Organization [facility] CliniSyoh Care Team Providers Care Process Consultant Name Role Phone Dr. Tian Rivas Primary Care Provider Dr. Tian Rivas Referring Provider Dr. Stephane Titus Attending Provider [phone] Dr. Stephane Titus Primary Care Provider 1(33 0) Dr. Stephane Titus Attending Provider [phone])2 Dr. Stephane Titus Referring Provider [phone])2 Dr. Stephane Titus Primary Care Provider 1(33 0) Dr. Stephane Titus Referring Provider [phone])2 JEROME Perez Attending Provider [phone] Dr. Marcial Shaw Attending Provider [phone])- [phone] Dr. Stephane Titus Attending Provider [phone])2 Dr. Stephane Titus Primary Care Provider 1(33 0) Dr. Stephane Titus Referring Provider [phone])2 JEROME Perez Attending Provider [phone] -[phone] Dr. Marcial Shaw Attending Provider [phone])- [phone] Dr. Stephane Titus Primary Care Provider 1(33 0) Dr. Stephane Titus Attending Provider [phone])2 Dr. Stephane Titus Referring Provider [phone])2 Dr. Stephane Titus Primary Care Provider 1(33 0) Dr. Britney Titusongbe Attending Provider [phone] Dr. Stephane Titus Referring Provider [phone] Tacho SIMONS, Dr. Calderón Primary Care Provider Tacho SIMONS, Dr. Calderón Attending Provider [phone] 0) Tacho SIMONS, Dr. Calderón Referring Provider 1(33 0) Kimberly DPRianna, Dr. Helton Attending Provider Kimberly DPM, Dr. Helton Referring Provider Oleghe, Efewongbe Primary Care Unavailable Oleghe, Efewongbe Attending Unavailable Oleghe, Efewongbe Referring Unavailable Oleghe, Efewongbe Primary Care Unavailable Oleghe, Efewongbe Attending Unavailable Oleghe, Efewongbe Referring Unavailable Oleghe, Efewongbe Primary Care Unavailable Oleghe, Efewongbe Attending Unavailable Oleghe, Efewongbe Referring Unavailable Oleghe, Efewongbe Primary Care Unavailable PraBarbara ruvalcabas Attending Unavailable PraBarbara ruvalcabas Referring Unavailable Oleghe, Efewongbe Primary Care Unavailable Danie Harris Attending Unavailable Danie Harris Referring Unavailable Oleghe, Efewongbe Primary Care Unavailable Oleghe, Efewongbe Referring Unavailable Oleghe, Efewongbe Attending Unavailable Oleghe, Efewongbe Referring Unavailable Oleghe, Efewongbe Attending Unavailable Oleghe, Efewongbe Primary Care Unavailable Oleghe, Efewongbe Attending Unavailable Oleghe, Efewongbe Primary Care Unavailable Oleghe, Efewongbe Referring Unavailable Oleghe, Efewongbe Primary Care Unavailable Oleghe, Efewongbe Attending Unavailable Oleghe, Efewongbe Referring Unavailable Oleghe, Efewongbe Referring Unavailable Oleghe, Efewongbe Attending Unavailable Oleghe, Efewongbe Primary Care Unavailable Allergies Allergy Classification Reported Allergen(s) Allergy Type Date of Onset Reaction(s) Facility (16 sources) Penicillins; Translations: [Penicillins] Allergy to substance 07-03-2021 [facility] (16 sources) Sulfonamides (Antibiotic); Translations: [Sulfa (Sulfonamide Antibiotics)] Allergy to substance 07-03-2021 [facility] Medications Current Medications Medication Drug Class(es) Dates Sig (Normalized) Sig (Original) acetaminophen 500 mg oral tablet (3 sources) Start: 06-03-2024 take 1 tablet by mouth every six hours as needed Acetaminophen (Tylenol Extra Strength) 500 mg tablet Active 500 mg PO EVERY 6 HOURS as needed June 03, 2024 12:00am calcium carbonate 1500 mg oral tablet (15 sources) Start: 06-20-2021 take 1 tablet by mouth once daily Calcium Carbonate (Calcium 600) 600 mg calcium (1,500 mg) tablet Active 600 mg PO DAILY June 20, 2021 12:00am CBD cream (3 sources) Start: 06-03-2024 CBD cream Active TOPICAL as needed June 03, 2024 12:00am CBD cream to back cholecalciferol 0.025 mg oral capsule (15 sources) Vitamin D Start: 07-03-2021 take 1 capsule by mouth once daily Cholecalciferol (Vitamin D3) 25 mcg (1,000 unit) capsule Active 25 ug PO DAILY July 03, 2021 12:00am diclofenac sodium 0.01 mg/mg topical gel (11 sources) Nonsteroidal Anti-inflammatory Drug Start: 10-10-2022 Diclofenac Sodium (Voltaren Arthritis Pain) 1 % gel Active 2 g TOPICAL ONCE as needed October 10, 2022 12:00am apply to single elbow, wrist or hand; for hand includes palm/fingers/back of hand Start: 10-10-2022 Diclofenac Sod ium (Voltaren Arthritis Pain) 1 % gel Active 2 GM TOPICAL ONCE October 10, 2022 12:00am apply to single elbow, wrist or hand; for hand includes palm/fingers/back of hand Lactobacillus Combination No.9 (Adult 50 Plus Probiotic) 4 billion cell capsule (3 sources) Start: 08-28-2023 take 4 capsules by mouth once daily Lactobacillus Combination No.9 (Adult 50 Plus Probiotic) 4 billion cell capsule Active 4000 NMA PO DAILY August 28, 2023 12:00am administer with a meal meloxicam 15 mg oral tablet (20 sources) Nonsteroidal Anti-inflammatory Drug Start: 09-02-2024 Meloxicam 15 mg tablet Active 15 mg PO .prn as needed September 02, 2024 12:00am Start: 09-10-2022 End: 06-03-2024 take 1 tablet by mouth once as needed for pain Meloxicam 15 mg tablet Discontinued 15 mg PO ONCE as needed for pain 30 0 November 14, 2023 1:02pm June 03, 2024 2:12pm Vkwtpsjx-Iwe-Afy C-Herb No.124 (Airborne Gummy) 250-11.66 mg Tablet,Chewable (15 sources) Start: 07-07-2020 take 1 tablet by mouth once daily Beqrvghp-Tcy-Jbl C-Herb No.124 (Airborne Gummy) 250-11.66 mg Tablet,Chewable Active 1 TABLET PO DAILY July 07, 2020 2:15pm Start: 07-07-2020 End: 06-03-2024 Hmwcyujo-Sob-Hmd C-Herb No.1 24 (Airborne Gummy) 250-11.66 mg Tablet,Chewable Discontinued 1 {tbl} PO DAILY July 07, 2020 12:00am June 03, 2024 2:13pm Start: 07-07-2020 take 1 tablet by lara th once daily Obypeykb-Aqo-Pum C-Herb No.124 (Airborne Gummy) 250-11.66 mg Tablet,Chewable Active 1 TABLET PO DAILY July 07, 2020 12:00am Start: 07-07-2020 take 1 tablet by lara th once daily Xkcqwrwl-Ijc-Mwb C-Herb No.124 (Airborne Gummy) 250-11.66 mg Tablet,Chewable Active 1 TABLET PO DAILY July 06, 2020 11:00pm Completed/Discontinued Medications Medication Drug Class(es) Dates Sig (Normalized) Sig (Original) atenolol 50 mg / chlorthalidone 25 mg oral tablet (20 sources) Thiazide-like Diuretic, beta-Adrenergic Shlomo Start: 06-20-2020 End: 01-23-2024 Atenolol-Chlorthali done 50-25 mg tablet Discontinued 1 {tbl} PO DAILY June 11, 2023 1:57pm January 23, 2024 1:05pm Start: 06-20-2020 End: 06-11-2023 take 1 tablet by mouth once daily Atenolol-Chlorthalidone Discontinued 1 TABLET PO DAILY October 04, 2021 10:13am October 10, 2022 3:29pm bacitracin zinc 0.5 unt/mg topical ointment (11 sources) Start: 09-17-2022 End: 10-10-2022 Bacitracin Zinc 500 unit/gra m ointment Discontinued 1 NMA TOPICAL THREE TIMES A DAY September 17, 2022 12:00am October 10, 2022 1:57pm Start: 09-17-2022 End: 10-10-2022 Bacitracin Zinc Discontinued 1 APPLIC TOPICAL THREE TIMES A DAY September 17, 2022 12:00am October 10, 2022 1:57pm lovastatin 10 mg oral tablet (20 sources) HMG-CoA Reductase Inhibitor Start: 06-20-2020 End: 01-23-2024 take 1 tablet by mouth once daily Lovastatin 10 mg tablet Discontinued 10 mg PO DAILY June 11, 2023 1:57pm January 23, 2024 1:05pm methylPREDNISolone 4 mg oral tablet (3 sources) Corticosteroid Start: 06-03-2024 End: 09-02-2024 take 1 tablet by mouth once Methylprednisolone (Medrol ([place])) 4 mg tablets,dose pack Discontinued 0 PO per package directions 21 June 03, 2024 12:00am September 02, 2024 1:14pm PO PER PKG DIR for 6 days naproxen sodium 220 mg oral capsule (15 sources) Nonsteroidal Anti-inflammatory Drug Start: 07-07-2020 End: 10-10-2022 take 1 capsule by mouth twice daily Naproxen Sodium (Aleve) 220 mg Capsule Discontinued 220 mg PO TWICE A DAY July 07, 2020 12:00am October 10, 2022 4:29pm Supple (15 sources) Start: 07-07-2020 End: 07-03-2021 Supple Discontinued 1 PKG SL/PO DAILY July 07, 2020 2:15pm July 03, 2021 9:57am Start: 07-07-2020 End: 07-03-2021 Supple Discontinued 1 NMA SL /PO DAILY July 07, 2020 12:00am July 03, 2021 9:57am Start: 07-07-2020 End: 07-03-2021 Supple Discontinued 1 PKG SL /PO DAILY July 07, 2020 12:00am July 03, 2021 9:57am Start: 07-07-2020 End: 07-03-2021 Supple Discontinued 1 PKG SL /PO DAILY July 06, 2020 11:00pm July 03, 2021 8:57am Problems Active Problems Problem Classification Problem Date Documented Da te Episodic/Chronic Abdominal pain (20 sources) Abdominal pain; Translations: [Unspecified abdominal pain] 05-29-2023 Episodic Adjustment disorders (20 sources) Family tension; Translations: [Reaction to severe stress, unspecified] 07-09-2022 Chronic Allergic reactions (6 sources) Disorder of nipple; Translations: [Dermatitis, unspecified] 06-03-2024 Episodic Anxiety disorders (15 sources) Generalized anxiety disorder; Translations: [Generalized anxiety disorder] 10-10-2022 Chronic Cancer of thyroid (15 sources) History of malignant neoplasm of thyroid; Translations: [Personal history of malignant neoplasm of thyroid] 06-20-2020 Episodic Chronic kidney disease (3 sources) Chronic kidney disease stage 3; Translations: [Stage 3 chronic kidney disease] 11-29-2023 Chronic Complications of surgical procedures or medical care (18 sources) History of subtotal thyroidectomy; Translations: [Postprocedural hypothyroidism] 06-20-2020 Chronic Delirium, dementia, and amnestic and other cognitive disorders (16 sources) Age-related cognitive decline; Translations: [Age-related cognitive decline] Chronic Disorders of lipid metabolism (20 sources) Hyperlipidemia; Translations: [Hyperlipidemia, unspecified] Onset: 11-29-2023 Chronic E Codes: Fall (12 sources) Fall; Translations: [Unspecified fall, initial encounter] 08-06-2022 Episodic Essential hypertension (20 sources) Hypertensive disorder; Translations: [Essential (primary) hypertension] Onset: 09-02-2024 Chronic Genitourinary symptoms and ill-defined conditions (2 sources) Nocturia; Translations: [Nocturia] 09-02-2024 Episodic Immunizations and screening for infectious disease (4 sources) Rheumatoid factor positive; Translations: [Other specified abnormal immunological findings in serum] Onset: 09-02-2024 09-02-2024 Episodic Open wounds of extremities (20 sources) Open wound of left forearm; Translations: [Unspecified open wound of left forearm, initial encounter] Episodic Osteoarthritis (20 sources) Arthritis; Translations: [Unspecified osteoarthritis, unspecified site] Chronic Other acquired deformities (1 source) Spondylolisthesis, lumbar region; Translations: [Spondylolisthesis, lumbar region] Onset: 10-06-2024 Episodic Other connective tissue disease (13 sources) Disorder of rotator cuff; Translations: [Unspecified disorder of synovium and tendon, right shoulder] 06-22-2022 Episodic Other connective tissue disease (5 sources) Unspecified disorder of synovium and tendon, right shoulder; Translations: [Disorders of bursae and tendons in shoulder region, unspecified] 06-21-2022 Episodic Other connective tissue disease (2 sources) Myalgia, other site; Translations: [Myalgia and myositis, unspecified] 06-21-2022 Episodic Other connective tissue disease (14 sources) Foot pain; Translations: [Pain in left foot] 09-10-2022 Episodic Other diseases of bladder and urethra (4 sources) Overactive bladder; Translations: [Overactive bladder] 08-28-2023 Chronic Other ear and sense organ disorders (18 sources) Impacted cerumen; Translations: [Impacted cerumen, bilateral] 07-03-2021 Episodic Other gastrointestinal disorders (9 sources) Altered bowel function; Translations: [Change in bowel habit] 05-29-2023 Episodic Other gastrointestinal disorders (6 sources) Change in bowel habit; Translations: [Other symptoms involving digestive system] 05-29-2023 Episodic Other gastrointestinal disorders (11 sources) Diarrhea; Translations: [Diarrhea, unspecified] 06-13-2023 Episodic Other gastrointestinal disorders (5 sources) Diarrhea, unspecified; Translations: [Diarrhea] 06-13-2023 Episodic Other injuries and conditions due to external causes (12 sources) Closed injury of head; Translations: [Unspecified injury of head, initial encounter] 08-06-2022 Episodic Other lower respiratory disease (11 sources) Nodule of lung; Translations: [Solitary pulmonary nodule] 06-13-2023 Episodic Other nervous system disorders (1 source) Other chronic pain; Translations: [Other chronic pain] Onset: 09-02-2024 Chronic Other non-traumatic joint disorders (14 sources) Shoulder pain; Translations: [Pain in right shoulder] 06-21-2022 Episodic Other non-traumatic joint disorders (14 sources) Pain in right shoulder; Translations: [Pain in joint, shoulder region] 06-21-2022 Episodic Other screening for suspected conditions (not mental disorders or infectious disease) (13 sources) Computed tomography result abnormal; Translations: [Abnormal findings on diagnostic imaging of other specified body structures] 06-13-2023 Chronic Other screening for suspected conditions (not mental disorders or infectious disease) (17 sources) Patient encounter status; Translations: [Encounter for other screening for malignant neoplasm of breast] Episodic Residual codes; unclassified (15 sources) Family history of cancer of colon; Translations: [Family history of malignant neoplasm of digestive organs] 06-21-2020 Episodic Residual codes; unclassified (15 sources) Acquired anophthalmos; 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] 07-03-2021 Episodic Residual codes; unclassified (15 sources) History of colonoscopy; Translations: [Other specified postprocedural states] 06-20-2020 Episodic Spondylosis; intervertebral disc disorders; other back problems (10 sources) Chronic back pain ; Translations: [Dorsalgia, unspecified] Onset: 09-07-2024 06-03-2024 Episodic Unclassified (4 sources) Left foot pain; Translations: [M79.672 - Pain in left foot] Unclassified (4 sources) M54.9 - Dorsalgia, unspecified,G89.29 - Other chronic pain Past or Other Problems Problem Classification Problem Date Documented Da te Episodic/Chronic Other bone disease and musculoskeletal deformities (1 source) Other specified disorders of bone density and structure, unspecified site; Translations: [Other specified disorders of bone density and structure, unspecified site] Onset: 11-29-2023 Episodic Other connective tissue disease (2 sources) Pain in left foot; Translations: [Pain in limb] Onset: 06-03-2024 09-10-2022 Episodic Other ear and sense organ disorders (12 sources) Impacted cerumen, bilateral; Translations: [Impacted cerumen] Onset: 06-03-2024 Episodic Other ear and sense organ disorders (1 source) Impacted cerumen, right ear; Translations: [Impacted cerumen, right ear] Onset: 03-02-2024 Episodic Other lower respiratory disease (6 sources) Solitary pulmonary nodule; Translations: [Solitary pulmonary nodule] Onset: 12-06-2023 06-13-2023 Episodic Other skin disorders (1 source) Localized swelling, mass and lump, left lower limb; Translations: [Localized swelling, mass and lump, left lower limb] Onset: 06-15-2024 Episodic Residual codes; unclassified (1 source) Asymptomatic menopausal state; Translations: [Asymptomatic menopausal state] Onset: 11-29-2023 Episodic Results Test Name Value Interpretation Reference Range Facility CCP IgG Antibodieson 025 CCP IgG Ab. 3 units Normal 0-19 [facility] Comment on above: Result Comment: Nega tive <20 Weak positive 20 - 39 Moderate positive 40 - 59 Strong positive >59 Performed at: [facility] Lab[address] [id number] Animal Husbandman: Arjun Wilson PhD, Phone: [phone] Performed By: #### L 500.4100, L500.2500, L505.7010, L4600.0100, L100.0100 ####[facility] [address] [place], [place], [id number] Absolute lymphocyte countOrd ered By: Stephane Titus on 09-02-2024 Lymphocytes Auto (Unsp spec) [#/Vol] 1.94 10*3/uL 0.83-4.51 [facility] Absolute neutrophil countOrd ered By: Stephane Titus on 09-02-2024 Neutrophils (Bld) [#/Vol] 4.5 10*3/uL 2.0-7.7 [facility] Anion gap in Serum or Plasma Ordered By: Stephane Titus on 09-02-2024 Anion gap [Moles/Vol] 14 mmol/L - [facility] Automated lymphocyte count a s percentage of total leukocytesOrdered By: Stephane Titus on 09-02-2024 Lymphocytes/100 WBC Auto (Unsp spec) 27.2 % - [facility] BUN/creatinine ratioOrdered By: Stephane Titus on 09-02-2024 Urea nitrogen/Creatinine [Mass ratio] 18.5 mg/mg - [facility] Basic Metabolic Profile (BMP )on 09-02-2024 BUN/CRE 18.5 RATIO Normal - [facility] Comment on above: Performed By: #### L 500.4100, L500.2500, L505.7010, L4600.0100, L100.0100 ####[facility] [address] [place], [address] Calcium [Mass/Vol] 9.9 mg/dL Normal 7.6-11.0 [facility] Comment on above: Performed By: #### L 500.4100, L500.2500, L505.7010, L4600.0100, L100.0100 ####[facility] [address] [place], [address] Chloride [Moles/Vol] 94 mmol/L Low 98-108 [facility] Comment on above: Performed By: #### L 500.4100, L500.2500, L505.7010, L4600.0100, L100.0100 ####[facility] [address] [place], [address] CO2 [Moles/Vol] 25.2 mmol/L Normal 21.0-32.0 [facility] Comment on above: Performed By: #### L 500.4100, L500.2500, L505.7010, L4600.0100, L100.0100 ####[facility] [address] [place], [address] Creatinine [Mass/Vol] 1.21 mg/dL High 0.70-1.20 [facility] Comment on above: Performed By: #### L 500.4100, L500.2500, L505.7010, L4600.0100, L100.0100 ####[facility] [address] [place], [address] GAP 14 Normal 5-15 [facility] Comment on above: Performed By: #### L 500.4100, L500.2500, L505.7010, L4600.0100, L100.0100 ####[facility] [address] [place], [address] GFR/1.73 sq M.predicted among non-blacks MDRD (S/P/Bld) [Vol rate/Area] 45 mL/min/{1.73_m2} Low >60 [facility] Comment on above: Result Comment: mL/m in/1.73m2 CKD-EPI Creatinine Equation (2020) Performed By: #### L 500.4100, L500.2500, L505.7010, L4600.0100, L100.0100 ####[facility] [address] [place], [address] Glucose [Mass/Vol] 77 mg/dL Normal 70-99 [facility] Comment on above: Performed By: #### L 500.4100, L500.2500, L505.7010, L4600.0100, L100.0100 ####[facility] [address] [place], [address] Potassium [Moles/Vol] 3.8 mmol/L Normal 3.3-5.1 [facility] Comment on above: Performed By: #### L 500.4100, L500.2500, L505.7010, L4600.0100, L100.0100 ####[facility] [address] [place], [address] Sodium [Moles/Vol] 133 mmol/L Normal 133-145 [facility] Comment on above: Performed By: #### L 500.4100, L500.2500, L505.7010, L4600.0100, L100.0100 ####[facility] [address] [place], [address] Urea nitrogen [Mass/Vol] 22 mg/dL High 4-19 [facility] Comment on above: Performed By: #### L 500.4100, L500.2500, L505.7010, L4600.0100, L100.0100 ####[facility] [address] [place], [address] Basophil percentageOrdered B y: Stephane Titus on 09-02-2024 Basophils/100 WBC (Bld) 0.6 % 0-1 [facility] CBC W/Diff, Automatedon 08-18 Absolute Lymph 1.94 X10 3/uL Normal 0.83-4.51 [facility] Comment on above: Performed By: #### L 500.4100, L500.2500, L505.7010, L4600.0100, L100.0100 ####[facility] [address] [place], [address] Absolute Neut 4.5 X10 3/uL Normal 2.0-7.7 [facility] Comment on above: Performed By: #### L 500.4100, L500.2500, L505.7010, L4600.0100, L100.0100 ####[facility] [address] [place], [address] Basophils/100 WBC (Bld) 0.6 % Normal 0-1 [facility] Comment on above: Performed By: #### L 500.4100, L500.2500, L505.7010, L4600.0100, L100.0100 ####[facility] [address] [place], [address] Eosinophils/100 WBC (Bld) 1.4 % Normal 0-5 [facility] Comment on above: Performed By: #### L 500.4100, L500.2500, L505.7010, L4600.0100, L100.0100 ####[facility] [address] [place], [address] Erythrocyte distribution width (RBC) [Ratio] 12.1 % Normal 11.6-14.6 [facility] Comment on above: Performed By: #### L 500.4100, L500.2500, L505.7010, L4600.0100, L100.0100 ####[facility] [address] [place], [address] Hematocrit (Bld) [Volume fraction] 36.7 % Low 37-47 [facility] Comment on above: Performed By: #### L 500.4100, L500.2500, L505.7010, L4600.0100, L100.0100 ####[facility] [address] [place], [address] Hemoglobin (Bld) [Mass/Vol] 12.0 g/dL Normal 12.0-15.0 [facility] Comment on above: Performed By: #### L 500.4100, L500.2500, L505.7010, L4600.0100, L100.0100 ####[facility] [address] [place], [address] IG% 0.400 Normal 0.0-0.9 [facility] Comment on above: Result Comment: IG% - Immature Granulocytes (promyelocytes, myelocytes and metamyelocytes) > 1% indicates that a LEFT SHIFT is Present. Performed By: #### L 500.4100, L500.2500, L505.7010, L4600.0100, L100.0100 ####[facility] [address] [place], [address] Lymphocytes/100 WBC (Bld) 27.2 % Normal 19-41 [facility] Comment on above: Performed By: #### L 500.4100, L500.2500, L505.7010, L4600.0100, L100.0100 ####[facility] [address] [place], [address] MCH (RBC) [Entitic mass] 29.8 pg Normal 27.0-32.0 [facility] Comment on above: Performed By: #### L 500.4100, L500.2500, L505.7010, L4600.0100, L100.0100 ####[facility] [address] [place], [address] MCHC (RBC) [Mass/Vol] 32.7 g/dL Normal 32-36 [facility] Comment on above: Performed By: #### L 500.4100, L500.2500, L505.7010, L4600.0100, L100.0100 ####[facility] [address] [place], [address] MCV (RBC) [Entitic vol] 91.1 fL Normal 81-99 [facility] Comment on above: Performed By: #### L 500.4100, L500.2500, L505.7010, L4600.0100, L100.0100 ####[facility] [address] [place], [address] Monocytes/100 WBC (Bld) 8.0 % Normal 0-10 [facility] Comment on above: Performed By: #### L 500.4100, L500.2500, L505.7010, L4600.0100, L100.0100 ####[facility] [address] [place], [address] Neutrophils/100 WBC (Bld) 62.4 % Normal 47-70 [facility] Comment on above: Performed By: #### L 500.4100, L500.2500, L505.7010, L4600.0100, L100.0100 ####[facility] [address] [place], [address] Nucleated RBC (Bld) [#/Vol] 0 10*3/uL Normal 0-5 [facility] Comment on above: Performed By: #### L 500.4100, L500.2500, L505.7010, L4600.0100, L100.0100 ####[facility] [address] [place], [address] Platelet mean volume (Bld) [Entitic vol] 12.3 fL High 6.2-12.0 [facility] Comment on above: Performed By: #### L 500.4100, L500.2500, L505.7010, L4600.0100, L100.0100 ####[facility] [address] [place], [address] Platelets (Bld) [#/Vol] 259 10*3/uL Normal 150-450 [facility] Comment on above: Performed By: #### L 500.4100, L500.2500, L505.7010, L4600.0100, L100.0100 ####[facility] [address] [place], [address] RBC (Bld) [#/Vol] 4.03 10*6/uL Low 4.2-5.4 [facility] Comment on above: Performed By: #### L 500.4100, L500.2500, L505.7010, L4600.0100, L100.0100 ####[facility] [address] [place], [address] RDW SD 40.4 fl Normal 35.1-43.9 [facility] Comment on above: Performed By: #### L 500.4100, L500.2500, L505.7010, L4600.0100, L100.0100 ####[facility] [address] [place], [address] WBC (Bld) [#/Vol] 7.1 10*3/uL Normal 4.4-11.0 [facility] Comment on above: Performed By: #### L 500.4100, L500.2500, L505.7010, L4600.0100, L100.0100 ####[facility] [address] [place], [address] Calculated very low density lipoprotein (VLDL) cholesterol measurementOrdered By: Stephane Titus on 09-02-2024 Calculated very low density lipoprotein (VLDL) cholesterol measurement 23 mg/dL 5-40 [facility] Carbon dioxide, total [Moles /volume] in Central venous bloodOrdered By: Stephane Titus on 09-02-2024 CO2 [Moles/Vol] 25.2 mmol/L 21.0-32.0 [facility] Chloride assayOrdered By: Renae Titus on 09-02-2024 Chloride [Moles/Vol] 94 mmol/L Low 98-108 [facility] Eosinophil percentageOrdered By: Stephane Titus on 09-02-2024 Eosinophils/100 WBC (Bld) 1.4 % 0-5 [facility] Erythrocyte distribution wid th ratioOrdered By: annabel Titus on 09-02-2024 Erythrocyte distribution width (RBC) [Ratio] 12.1 % 11.6-14.6 [facility] Erythrocyte distribution wid th standard deviationOrdered By: orturnerjacquie Titus on 09-02-2024 Erythrocyte distribution width (RBC) [Ratio] 40.4 fl 35.1-43.9 [facility] Glomerular filtration rate ( GFR) estimation/1.73 sq m using serum, plasma, or whole bOrdered By: Stephane Titus on 09-02-2024 GFR/1.73 sq M.predicted among non-blacks MDRD (S/P/Bld) [Vol rate/Area] 45 mL/min/{1.73_m2} Low >60 [facility] Comment on above: mL/min/1.73m2 CKD-EP I Creatinine Equation (2020) Hematocrit Auto (Bld) [Volum e fraction]Ordered By: Stephane Titus on 09-02-2024 Hematocrit (Bld) [Volume fraction] 36.7 % Low 37-47 [facility] Hemoglobin measurementOrdere d By: Stephane Titus on 09-02-2024 Hemoglobin (Bld) [Mass/Vol] 12.0 g/dL 12.0-15.0 [facility] Immature granulocytes/100 WB C Auto (Bld)Ordered By: Stephane Titus 09-02-2024 Immature granulocytes/100 WBC (Bld) 0.400 % 0.0-0.9 [facility] Comment on above: IG% - Immature Granu locytes (promyelocytes, myelocytes and metamyelocytes) > 1% indicates that a LEFT SHIFT is Present. Internal Medicine Office Vis braydon 09-02-2024 Internal Medicine Office Visit [facility] [address] [place] [address] [place] [address] OFFICE VISIT Date of Service: 09/02/24 MR#: [id number] Acct: [id number] Name: JANE MABRY Rep #: [id number] : 1940 Provider: Dr. Stephane dunn MD Age/Sex: 84/F Location: [facility] [place] Status: Signed Intake Vital Signs 06/03/24 14:14 09/02/24 13:02 Height 5 ft 5 ft Weight: 169 lb 8 oz BMI 33.0 BP 132/70 H Blood Pressure Location Lt brachial Position Sitting Respiration 16 Pulse 16 L Pulse Source Monitor Temp 96.4 F L Temp Source Temporal Pulse Oximetry (%) 98 Oxygen Delivery Method room air Intake Visit Reasons: 3 M FU Chief Complaint: Follow-up Denial Management Representative Required: No Accompanied by: Self Is patient in pain?: No Allergies Penicillins Allergy (Verified 09/02/24 13:02) Rash Sulfa (Sulfonamide Antibiotics) Allergy (Verified 09/02/24 13:02) Rash Medications ???Medication ???Instructions ???Recorded ???Confirmed ???Type calcium carbonate (Calcium 600) 600 mg PO DAILY 06/20/21 09/02/24 History cholecalciferol (vitamin D3) 25 25 mcg PO DAILY 07/03/21 09/02/24 History mcg (1,000 unit) capsule diclofenac sodium 1 % topical gel 2 g topical ONCE PRN 10/10/22 History (Voltaren Arthritis Pain) lactobacillus combination no.9 4 4,000 mmu cells PO DAILY 08/28/23 09/02/24 History billion cell capsule (Adult 50 Plus Probiotic) atenolol 50 mg-chlorthalidone 25 1 tab PO DAILY #90 tabs 01/23/24 0 09/02/24 Rx mg tablet lovastatin 10 mg tablet 10 mg PO DAILY #90 tabs 01/23/24 0 09/02/24 Rx CBD cream topical PRN 06/03/24 09/02/24 Hist ory acetaminophen 500 mg tablet 500 mg PO Q6H PRN 06/03/24 5 History (Tylenol Extra Strength) meloxicam 15 mg tablet 15 mg PO .prn PRN 09/02/24 5 History Have you fallen in the past year?: No Nurse's Note: follow up back pain right hip area [facility] Medical History (Updated 09/02/24 @ 19:[address] Stephane Titus MD) Nocturia Elevated rheumatoid factor Dermatitis of nipple Chronic back pain CKD (chronic kidney disease), stage III Overactive bladder Lung nodule Diarrhea Abnormal finding on CT scan Nodule of right lung Grief reaction Abdominal pain Change in bowel habit Generalized anxiety disorder Stress at home Hyperlipidemia Health care maintenance Breast cancer screening Open wound of left forearm Age-related cognitive decline Osteoarthritis Bilateral impacted cerumen Loss of one eye Urinary tract infection Cancer DVT (deep venous thrombosis) High cholesterol Easy bruising Non-smoker Leg cramps History of edema Hypertension History of eye prosthesis Family history of colon cancer Arthritis Hx of thyroid cancer Surgical History Hx of colonoscopy Hx of cataract extraction History of tonsillectomy History of tubal ligation History of partial thyroidectomy Family History Mother Colon cancer Hypertension Sister Hypertension Breast cancer Father Heart disease Hypertension Brother Diabetes Social History Smoking Status: Never smoker alcohol intake: current alcohol intake frequency: holidays/special occasions only substance use type: does not use caffeine: Yes what type of physical activity do you participate in: walking and other details: golf frequency: 1-2 times per week HPI HPI Chief Complaint: Follow-up Details: JANE MABRY, is a 84 F who presents to the office today for Follow-up of her chronic conditions. Also has some concerns. She reports ongoing back pain. Worse with significant activity and occasional radiation down her right lower extremity. Had steroid injection to her foot with some improvement and she is considering if this will be helpful to her back as well. No recent falls. Has also noted increased urinary frequency especially at night. No burning or pain with urination. No fever or chills or feeling of unwell. This has been progressively worsening over the last couple of months. Had labs done by podiatry with elevated rheumatoid factor. CCP was normal. She had questions about this and was referred to rheumatology however she states that she has been unable to schedule with rheumatology. No prior history of rheumatoid arthritis. History of hypertension with blood pressure today at 130/70 mmHg. Taking her medication consistently. No chest pain, palpitation or shortness of breath. Other chronic medical conditions are stable. ROS Const Constitutional: No body ache, excessive sweating, fatigue, fever(s), frequent falls, headache(s), snoring, weakness, weight change, sleep problems or change in appe (more content not included)... Normal [facility] LDL calc ser/plasOrdered By: Stephane Titus on 09-02-2024 Cholesterol in LDL [Mass/Vol] 93 mg/dL [facility] Comment on above: Wgqsyhejnq=617-406 m g/dL & Higher Ufcj=011 mg/dL or greater Lipid Profileon 09-02-2024 CHOL:HDL 2.65 Normal [facility] Comment on above: Performed By: #### L 500.4100, L500.2500, L505.7010, L4600.0100, L100.0100 ####[facility] [address] [place], [address] Cholesterol [Mass/Vol] 185 mg/dL Normal <=200 [facility] Comment on above: Result Comment: Chol esterol level, Desirable <200 mg/dL Borderline high cholesterol 200-239 mg/dL High cholesterol >=240 mg/dL Recommendations of the NCEP Adult Treatment Panel for the following risk-cutoff thresholds for the [place] population. Performed By: #### L 500.4100, L500.2500, L505.7010, L4600.0100, L100.0100 ####[facility] [address] [place], [address] Cholesterol in HDL [Mass/Vol] 70 mg/dL Normal [facility] Comment on above: Result Comment: [place] on[place] Cholesterol Education Program (NCEP) guidelines: <40 mg/dL: Low HDL-cholesterol (major risk factor for CHD) >= 60 mg/dL: High HDL-cholesterol (negative risk factor for CHD) HDL-cholesterol is affected by a number of factors, e.g. smoking, exercise, hormones, sex and age. Performed By: #### L 500.4100, L500.2500, L505.7010, L4600.0100, L100.0100 ####[facility] [address] [place], [address] Cholesterol in LDL [Mass/Vol] 93 mg/dL Normal [facility] Comment on above: Result Comment: Bord dxysts=485-727 mg/dL Higher Kllr=548 mg/dL or greater Performed By: #### L 500.4100, L500.2500, L505.7010, L4600.0100, L100.0100 ####[facility] [address] [place], [address] Cholesterol in VLDL [Mass/Vol] 23 mg/dL Normal 5-40 [facility] Comment on above: Performed By: #### L 500.4100, L500.2500, L505.7010, L4600.0100, L100.0100 ####[facility] [address] [place], [address] Triglyceride [Mass/Vol] 114 mg/dL Normal [facility] Comment on above: Result Comment: The drugs N-Acetylcysteine and Metamizole may falsely depress this assay. Normal range: <150 mg/dL Borderline High: 150-199 mg/dL High: 200-499 mg/dL Very High: >500 mg/dL Performed By: #### L 500.4100, L500.2500, L505.7010, L4600.0100, L100.0100 ####[facility] [address] [place], [address] Lumbar Spine 2 or 3 Viewson 09-02-2024 Lumbar Spine 2 or 3 Views [facility] Imaging Services [address] [place] [address] Lumbar Spine 2 or 3 Views MR#: [id number] Acct: [id number] Name: JANE MABRY Rep #: [id number] : 1940 F 84 From: Josesito Leonardo MD PCP: Dr. Stephane Titus MD Status: REG CLI Study: Lumbar Spine 2 or 3 Views Date of Exam: Exam# [id number] Ordering Dr: Stephane Titus MD EXAM: XR Lumbosacral Spine, 2 or 3 Views CLINICAL INDICATION: CHRONIC BACK PAIN TECHNIQUE: Frontal and lateral views of the lumbar spine and sacrum. COMPARISON: No relevant prior studies available. FINDINGS: VERTEBRAE: S shaped scoliosis. Degenerative facet arthropathy throughout the lumbar spine, most prominent in the lower lumbar spine. Normal alignment. No acute fracture. SACRUM/COCCYX: Unremarkable as visualized. No acute fracture. DISC SPACES: Degenerative disc disease throughout the lumbar spine. SOFT TISSUES: Unremarkable. RAD/Lumbar Spine 2 or 3 Views IMPRESSION: 1. No acute fracture. 2. Degenerative changes lumbar spine as described. Reading Location: [facility] CC: Dr. Stephane Titus MD Casing Crew: Signed Normal [facility] MCV (mean corpuscular volume ) determinationOrdered By: Stephane Titus on 09-02-2024 MCV (RBC) [Entitic vol] 91.1 fL 81-99 [facility] Mean corpuscular hemoglobin (MCH) determinationOrdered By: Stephane Titus on 09-02-2024 MCH (RBC) [Entitic mass] 29.8 pg 27.0-32.0 [facility] Mean corpuscular hemoglobin concentration (MCHC) determinationOrdered By: Stephane Titus on 09-02-2024 MCHC (RBC) [Mass/Vol] 32.7 g/dL 32-36 [facility] Mean platelet volume determi nationOrdered By: Stephane Titus on 09-02-2024 Platelet mean volume (Bld) [Entitic vol] 12.3 fL High 6.2-12.0 [facility] Monocyte percentageOrdered B y: Stephane Tameze on 09-02-2024 Monocytes/100 WBC (Bld) 8.0 % 0-10 [facility] Neutrophil percentageOrdered By: Renaeroleni Tamezkain on 09-02-2024 Neutrophils/100 WBC (Bld) 62.4 % 47-70 [facility] Nucleated red blood cell per centageOrdered By: Britneyalisjacquie Mcnairantoinekain on 09-02-2024 Nucleated RBC/100 WBC (Bld) [Ratio] 0 % 0-5 [facility] Platelet countOrdered By: Renae alexjacquie Mcnairantoinekain on 09-02-2024 Platelets (Bld) [#/Vol] 259 10*3/uL 150-450 [facility] Potassium measurement (mass/ volume)Ordered By: Stephane Titus on 09-02-2024 Potassium (Unsp spec) [Mass/Vol] 3.8 mmol/L 3.3-5.1 [facility] RBC Auto (Bld) [#/Vol]Ordere d By: Stephane Titus on 09-02-2024 RBC (Bld) [#/Vol] 4.03 10*6/uL Low 4.2-5.4 [facility] Rheumatoid Factoron 09-03-19 25 RHEUMATOID FAC 291.0 IU/mL High <15 [facility] Comment on above: Performed By: #### L 500.4100, L500.2500, L505.7010, L4600.0100, L100.0100 ####[facility] [address] [place], [place], [id number] Screening total cholesterol/ high density lipoprotein (HDL) cholesterol ratioOrdered By: Stephane Titus on 09-02-2024 Cholesterol.total/Choles terol in HDL [Mass ratio] 2.65 {ratio} [facility] Serum creatinine measurement (mass/volume)Ordered By: Stephane Titus on 09-02-2024 Creatinine [Mass/Vol] 1.21 mg/dL High 0.70-1.20 [facility] Serum glucose measurement (m ass/volume)Ordered By: Stephane Titus on 09-02-2024 Glucose [Mass/Vol] 77 mg/dL 70-99 [facility] Serum or plasma calcium dean urement (mass/volume)Ordered By: Stephane Titus on 09-02-2024 Calcium [Mass/Vol] 9.9 mg/dL 7.6-11.0 [facility] Serum or plasma cholesterol in HDL measurement (mass/volume)Ordered By: Stephane Titus on 09-02-2024 Cholesterol in HDL [Mass/Vol] 70 mg/dL >40 [facility] Comment on above: National Cholesterol Education Program (NCEP) guidelines:<40 mg/dL: Low HDL-cholesterol (major risk factor for CHD)>= 60 mg/dL: High HDL-cholesterol (negative risk factor for CHD)HDL-cholesterol is affected by a number of factors, e.g. smoking, exercise, hormones, sex and age. Serum or plasma cholesterol measurement (mass/volume)Ordered By: Stephane Titus on 09-02-2024 Cholesterol [Mass/Vol] 185 mg/dL <201 [facility] Comment on above: Cholesterol level, D esirable <200 mg/dLBorderline high cholesterol 200-239 mg/dLHigh cholesterol >=240 mg/dLRecommendations of the NCEP Adult Treatment Panel for the following risk-cutoff thresholds for the [place] population. Serum or plasma cyclic citru llinated peptide IgG antibody assay (units/volume)Ordered By: Stephane Titus on 09-02-2024 Cyclic citrullinated peptide IgG Qn 3 units 0-19 [facility] Comment on above: Negative <20 Weak po sitive 20 - 39 Moderate positive 40 - 59 Strong positive >59Performed at: - [facility] [id number] Director: Arjun Wilson PhD, Phone: [phone] Serum or plasma urea nitroge n measurement (mass/volume)Ordered By: Stephane Titus on 09-02-2024 Urea nitrogen [Mass/Vol] 22 mg/dL High 4-19 [facility] Serum rheumatoid factor dete ctionOrdered By: Stephane Titus on 09-02-2024 Rheumatoid factor Ql (S) 291.0 IU/mL High <15 [facility] Sodium levelOrdered By: Britney leni Tacho on 09-02-2024 Sodium [Moles/Vol] 133 mmol/L 133-145 [facility] Triglycerides measurementOrd ered By: Britneyalisjacquie Titus on 09-02-2024 Triglyceride [Mass/Vol] 114 mg/dL <199 [facility] Comment on above: The drugs N-Acetylcy steine and Metamizole may falsely depress this assay. Normal range: <150 mg/dLBorderline High: 150-199 mg/dLHigh: 200-499 mg/dLVery High: >500 mg/dL White blood cell (WBC) count Ordered By: Stephane Titus on 09-02-2024 WBC (Bld) [#/Vol] 7.1 10*3/uL 4.4-11.0 [facility] JIM w/ Reflex Mult Confirmon 06-15-2024 ANTI-DNA (DS)AB TNP Normal [facility] Comment on above: Performed By: #### L 3100.5450, L505.7010, L4600.0100, L500.4050, L501.6710 #### [facility] [address] [place], [address] ANTI-MORA-1 TNP Normal [facility] Comment on above: Performed By: #### L 3100.5450, L505.7010, L4600.0100, L500.4050, L501.6710 #### [facility] [address] [place], [address] ANTI-SS-A TNP Normal [facility] Comment on above: Performed By: #### L 3100.5450, L505.7010, L4600.0100, L500.4050, L501.6710 #### [facility] [address] [place], [address] CCP IgG Antibodieson 025 CCP IgG Ab. 8 units Normal 0-19 [facility] Comment on above: Result Comment: Nega tive <20 Weak positive 20 - 39 Moderate positive 40 - 59 Strong positive >59 Performed at: [facility] [address] [place], [place] [id number] Animal Husbandman: Arjun Wilson PhD, Phone: [phone] Performed By: #### L 3100.5450, L505.8810, L4600.0100, L500.4050, L501.6710 ####[facility] [address] [place], [place], [address] JIM serumOrdered By: Danie Harris on 06-10-2024 Anti-Nuclear Antibody Screen Negative Negative [facility] Comment on above: Performed at: [employer] [address] [place], [place] [id number] Director: Arjun Wilson PhD, Phone: [phone] Absolute lymphocyte countOrd ered By: Danie Harris on 06-10-2024 Lymphocytes Auto (Unsp spec) [#/Vol] 2.00 10*3/uL 0.83-4.51 [facility] Absolute neutrophil countOrd ered By: Danie Harris on 06-10-2024 Neutrophils (Bld) [#/Vol] 12.1 10*3/uL High 2.0-7.7 [facility] Anion gap in Serum or Plasma Ordered By: Danie Harris on 06-10-2024 Anion gap [Moles/Vol] 14 mmol/L 5-15 [facility] Automated lymphocyte count a s percentage of total leukocytesOrdered By: Danie Harris on 06-10-2024 Lymphocytes/100 WBC Auto (Unsp spec) 13.2 % Low 19-41 [facility] BUN/creatinine ratioOrdered By: Danie Harris on 06-10-2024 Urea nitrogen/Creatinine [Mass ratio] 25.5 mg/mg High 10-20 [facility] Basophil percentageOrdered B y: Danie Harris on 06-10-2024 Basophils/100 WBC (Bld) 0.1 % 0-1 [facility] Bilirubin, totalOrdered By: Danie Harris on 06-10-2024 Bilirubin [Mass/Vol] 0.21 mg/dL 0.00-1.30 [facility] CBC W/Diff, Automatedon 04-2 Absolute Lymph 2.00 X10 3/uL Normal 0.83-4.51 [facility] Comment on above: Performed By: #### L 100.0100 ####[facility] [address] [place], [address] Absolute Neut 12.1 X10 3/uL High 2.0-7.7 [facility] Comment on above: Performed By: #### L 100.0100 ####[facility] [address] [place], [address] Basophils/100 WBC (Bld) 0.1 % Normal 0-1 [facility] Comment on above: Performed By: #### L 100.0100 ####[facility] [address] [place], [address] Eosinophils/100 WBC (Bld) 0.0 % Normal 0-5 [facility] Comment on above: Performed By: #### L 100.0100 ####[facility] [address] [place], [address] Erythrocyte distribution width (RBC) [Ratio] 12.4 % Normal 11.6-14.6 [facility] Comment on above: Performed By: #### L 100.0100 ####[facility] [address] [place], [address] Hematocrit (Bld) [Volume fraction] 38.9 % Normal 37-47 [facility] Comment on above: Performed By: #### L 100.0100 ####[facility] [address] [place], [address] Hemoglobin (Bld) [Mass/Vol] 12.9 g/dL Normal 12.0-15.0 [facility] Comment on above: Performed By: #### L 100.0100 ####[facility] [address] [place], [address] IG% 0.500 Normal 0.0-0.9 [facility] Comment on above: Result Comment: IG% - Immature Granulocytes (promyelocytes, myelocytes and metamyelocytes) > 1% indicates that a LEFT SHIFT is Present. Performed By: #### L 100.0100 ####[facility] [address] [place], [address] Lymphocytes/100 WBC (Bld) 13.2 % Low 19-41 [facility] Comment on above: Performed By: #### L 100.0100 ####[facility] [address] [place], [address] MCH (RBC) [Entitic mass] 29.4 pg Normal 27.0-32.0 [facility] Comment on above: Performed By: #### L 100.0100 ####[facility] [address] [place], [address] MCHC (RBC) [Mass/Vol] 33.2 g/dL Normal 32-36 [facility] Comment on above: Performed By: #### L 100.0100 ####[facility] [address] [place], [address] MCV (RBC) [Entitic vol] 88.6 fL Normal 81-99 [facility] Comment on above: Performed By: #### L 100.0100 ####[facility] [address] [place], [address] Monocytes/100 WBC (Bld) 6.5 % Normal 0-10 [facility] Comment on above: Performed By: #### L 100.0100 ####[facility] [address] [place], [address] Neutrophils/100 WBC (Bld) 79.7 % High 47-70 [facility] Comment on above: Performed By: #### L 100.0100 ####[facility] [address] [place], [address] Nucleated RBC (Bld) [#/Vol] 0 10*3/uL Normal 0-5 [facility] Comment on above: Performed By: #### L 100.0100 ####[facility] [address] [place], [address] Platelet mean volume (Bld) [Entitic vol] 12.1 fL High 6.2-12.0 [facility] Comment on above: Performed By: #### L 100.0100 ####[facility] [address] [place], [address] Platelets (Bld) [#/Vol] 299 10*3/uL Normal 150-450 [facility] Comment on above: Performed By: #### L 100.0100 ####[facility] [address] [place], [address] RBC (Bld) [#/Vol] 4.39 10*6/uL Normal 4.2-5.4 [facility] Comment on above: Performed By: #### L 100.0100 ####[facility] [address] [place], [address] RDW SD 40.9 fl Normal 35.1-43.9 [facility] Comment on above: Performed By: #### L 100.0100 ####[facility] [address] [place], [address] WBC (Bld) [#/Vol] 15.1 10*3/uL High 4.4-11.0 [facility] Comment on above: Performed By: #### L 100.0100 ####[facility] [address] [place], [address] CRPon 06-10-2024 C-REACTIVE PROT < 3.00 Normal 0.0-3.0 [facility] Comment on above: Performed By: #### L 3100.5450, L505.7010, L4600.0100, L500.4050, L501.6710 ####[facility] [address] [place], [address] CRP [Mass/Vol]Ordered By: Rayray Harris on 06-10-2024 C-Reactive Protein Extended Range < 3.00 mg/L 0.0-3.0 [facility] Carbon dioxide, total [Moles /volume] in Central venous bloodOrdered By: Danie Harris on 06-10-2024 CO2 [Moles/Vol] 22.9 mmol/L 21.0-32.0 [facility] Chloride assayOrdered By: Rayray Harris on 06-10-2024 Chloride [Moles/Vol] 96 mmol/L Low 98-108 [facility] Comprehensive Metabolic Prof ilon 06-10-2024 Albumin [Mass/Vol] 4.2 g/dL Normal 3.4-4.8 [facility] Comment on above: Performed By: #### L 3100.5450, L505.7010, L4600.0100, L500.4050, L501.6710 #### [facility] [address] [place], [address] Albumin/Globulin [Mass ratio] 1.5 {ratio} Normal 0.9-2.4 [facility] Comment on above: Performed By: #### L 3100.5450, L505.7010, L4600.0100, L500.4050, L501.6710 #### [facility] [address] [place], [address] ALK PHOS 74 U/L Normal 35-104 [facility] Comment on above: Performed By: #### L 3100.5450, L505.7010, L4600.0100, L500.4050, L501.6710 #### [facility] [address] [place], [address] ALT [Catalytic activity/Vol] 16 U/L Normal <=34 [facility] Comment on above: Performed By: #### L 3100.5450, L505.7010, L4600.0100, L500.4050, L501.6710 #### [facility] [address] [place], [address] AST [Catalytic activity/Vol] 25 U/L Normal <=31 [facility] Comment on above: Performed By: #### L 3100.5450, L505.7010, L4600.0100, L500.4050, L501.6710 #### [facility] [address] [place], [address] Bilirubin [Mass/Vol] 0.21 mg/dL Normal 0.00-1.30 [facility] Comment on above: Performed By: #### L 3100.5450, L505.7010, L4600.0100, L500.4050, L501.6710 #### [facility] [address] [place], [address] BUN/CRE 25.5 RATIO High 10-20 [facility] Comment on above: Performed By: #### L 3100.5450, L505.7010, L4600.0100, L500.4050, L501.6710 #### [facility] [address] [place], [address] Calcium [Mass/Vol] 9.7 mg/dL Normal 7.6-11.0 [facility] Comment on above: Performed By: #### L 3100.5450, L505.7010, L4600.0100, L500.4050, L501.6710 #### [facility] [address] [place], [address] Chloride [Moles/Vol] 96 mmol/L Low 98-108 [facility] Comment on above: Performed By: #### L 3100.5450, L505.7010, L4600.0100, L500.4050, L501.6710 #### [facility] [address] [place], [address] CO2 [Moles/Vol] 22.9 mmol/L Normal 21.0-32.0 [facility] Comment on above: Performed By: #### L 3100.5450, L505.7010, L4600.0100, L500.4050, L501.6710 #### [facility] [address] [place], [address] Creatinine [Mass/Vol] 1.13 mg/dL Normal 0.70-1.20 [facility] Comment on above: Performed By: #### L 3100.5450, L505.7010, L4600.0100, L500.4050, L501.6710 #### [facility] [address] [place], [address] GAP 14 Normal 5-15 [facility] Comment on above: Performed By: #### L 3100.5450, L505.7010, L4600.0100, L500.4050, L501.6710 #### [facility] [address] [place], [address] GFR/1.73 sq M.predicted among non-blacks MDRD (S/P/Bld) [Vol rate/Area] 49 mL/min/{1.73_m2} Low >60 [facility] Comment on above: Result Comment: mL/m in/1.73m2 CKD-EPI Creatinine Equation (2020) Performed By: #### L 3100.5450, L505.7010, L4600.0100, L500.4050, L501.6710 #### [facility] [address] [place], [address] Globulin (S) [Mass/Vol] 2.9 g/dL Normal 2.2-4.2 [facility] Comment on above: Performed By: #### L 3100.5450, L505.7010, L4600.0100, L500.4050, L501.6710 #### [facility] [address] [place], [address] Glucose [Mass/Vol] 118 mg/dL High 70-99 [facility] Comment on above: Performed By: #### L 3100.5450, L505.7010, L4600.0100, L500.4050, L501.6710 #### [facility] [address] [place], [address] Potassium [Moles/Vol] 3.5 mmol/L Normal 3.3-5.1 [facility] Comment on above: Performed By: #### L 3100.5450, L505.7010, L4600.0100, L500.4050, L501.6710 #### [facility] [address] [place], [address] Sodium [Moles/Vol] 132 mmol/L Low 133-145 [facility] Comment on above: Performed By: #### L 3100.5450, L505.7010, L4600.0100, L500.4050, L501.6710 #### [facility] [address] [place], [address] T PROT 7.1 g/dL Normal 5.9-8.4 [facility] Comment on above: Performed By: #### L 3100.5450, L505.7010, L4600.0100, L500.4050, L501.6710 #### [facility] [address] [place], [address] Urea nitrogen [Mass/Vol] 29 mg/dL High 4-19 [facility] Comment on above: Performed By: #### L 3100.5450, L505.7010, L4600.0100, L500.4050, L501.6710 #### [facility] [address] [place], [place], [address] Cyclic citrullinated peptide IgG QnOrdered By: Danie Harris on 06-10-2024 Cyclic Citrullinated Peptide IgG Ab 8 units 0-19 [facility] Comment on above: Negative <20 Weak po sitive 20 - 39 Moderate positive 40 - 59 Strong positive >59Performed at: [facility] [address] [id number] Director: Arjun Wilson PhD, Phone: [phone] DNA double strand Ab Qn (S)O rdered By: Danie Harris on 06-10-2024 Anti-Double Strand DNA Antibody TNP [facility] Comment on above: Test not performed Eosinophil percentageOrdered By: Danie Harris on 06-10-2024 Eosinophils/100 WBC (Bld) 0.0 % 0-5 [facility] Erythrocyte distribution wid th (RBC) [Ratio]Ordered By: Danie Harris on 06-10-2024 Erythrocyte distribution width (RBC) [Entitic vol] 40.9 fL 35.1-43.9 [facility] Erythrocyte distribution wid th ratioOrdered By: Danie Harris on 06-10-2024 Erythrocyte distribution width (RBC) [Ratio] 12.4 % 11.6-14.6 [facility] Erythrocyte distribution wid th standard deviationOrdered By: Danie Harris on 06-10-2024 Erythrocyte distribution width (RBC) [Ratio] 40.9 fl 35.1-43.9 [facility] GFR/1.73 sq M.predicted rosa g non-blacks MDRD (S/P/Bld) [Vol rate/Area]Ordered By: Danie Harris on 06-10-2024 Estimated GFR (MDRD) Non-Af Amer 49 Low >60 [facility] Comment on above: mL/min/1.73m2 CKD-EP I Creatinine Equation (2020) Glomerular filtration rate ( GFR) estimation/1.73 sq m using serum, plasma, or whole bOrdered By: Danie Harris on 06-10-2024 GFR/1.73 sq M.predicted among non-blacks MDRD (S/P/Bld) [Vol rate/Area] 49 mL/min/{1.73_m2} Low >60 [facility] Comment on above: mL/min/1.73m2 CKD-EP I Creatinine Equation (2020) Hematocrit Auto (Bld) [Volum e fraction]Ordered By: Danie Harris on 06-10-2024 Hematocrit (Bld) [Volume fraction] 38.9 % 37-47 [facility] Hemoglobin measurementOrdere d By: Danie Harris on 06-10-2024 Hemoglobin (Bld) [Mass/Vol] 12.9 g/dL 12.0-15.0 [facility] Immature granulocytes/100 WB C Auto (Bld)Ordered By: Danie Harris on 06-10-2024 Immature granulocytes/100 WBC (Bld) 0.500 % 0.0-0.9 [facility] Comment on above: IG% - Immature Granu locytes (promyelocytes, myelocytes and metamyelocytes) > 1% indicates that a LEFT SHIFT is Present. Mora-1 antibody assayOrdered B y: Danie Harris on 06-10-2024 MORA-1 Antibody TNP [facility] Comment on above: Test not performed Laboratory - Chemistry and C hemistry - challengeOrdered By: Danie Harris on 06-10-2024 AST [Catalytic activity/Vol] 25 U/L <32 [facility] Lymphocytes Auto (Unsp spec) [#/Vol]Ordered By: Danie Harris on 06-10-2024 Lymphocytes (Bld) [#/Vol] 2.00 10*3/uL 0.83-4.51 [facility] Lymphocytes/100 WBC Auto (Un sp spec)Ordered By: Danie Harris on 06-10-2024 Lymphocytes/100 WBC (Bld) 13.2 % Low 19-41 [facility] MCV (mean corpuscular volume ) determinationOrdered By: Danie Harris on 06-10-2024 MCV (RBC) [Entitic vol] 88.6 fL 81-99 [facility] Mean corpuscular hemoglobin (MCH) determinationOrdered By: Danie Harris on 06-10-2024 MCH (RBC) [Entitic mass] 29.4 pg 27.0-32.0 [facility] Mean corpuscular hemoglobin concentration (MCHC) determinationOrdered By: Danie Harris on 06-10-2024 MCHC (RBC) [Mass/Vol] 33.2 g/dL 32-36 [facility] Mean platelet volume determi nationOrdered By: Danie Harris on 06-10-2024 Platelet mean volume (Bld) [Entitic vol] 12.1 fL High 6.2-12.0 [facility] Monocyte percentageOrdered B y: Danie Harris on 06-10-2024 Monocytes/100 WBC (Bld) 6.5 % 0-10 [facility] Neutrophil percentageOrdered By: Danie Harris on 06-10-2024 Neutrophils/100 WBC (Bld) 79.7 % High 47-70 [facility] Nucleated red blood cell per centageOrdered By: Danie Harris on 06-10-2024 Nucleated RBC/100 WBC (Bld) [Ratio] 0 % 0-5 [facility] Platelet countOrdered By: Rayray Harris on 06-10-2024 Platelets (Bld) [#/Vol] 299 10*3/uL 150-450 [facility] Potassium (Unsp spec) [Mass/ Vol]Ordered By: Danie Harris on 06-10-2024 Potassium [Moles/Vol] 3.5 mmol/L 3.3-5.1 [facility] Potassium measurement (mass/ volume)Ordered By: Danie Harris on 06-10-2024 Potassium (Unsp spec) [Mass/Vol] 3.5 mmol/L 3.3-5.1 [facility] RBC Auto (Bld) [#/Vol]Ordere d By: Danie Harris on 06-10-2024 RBC (Bld) [#/Vol] 4.39 10*6/uL 4.2-5.4 [facility] Rheumatoid Factoron 06-11-19 25 RHEUMATOID FAC 339.0 IU/mL High <15 [facility] Comment on above: Performed By: #### L 3100.5450, L505.7010, L4600.0100, L500.4050, L501.6710 ####[facility] [address] [place], [address] Rheumatoid factor Ql (S)Orde red By: Danie Harris on 06-10-2024 Rheumatoid Factor 339.0 IU/mL High <15 [facility] SCL-70 extractable nuclear A b Qn (S)Ordered By: Danie Harris on 06-10-2024 Scl-70 (Scleroderma) Antibody [facility] Comment on above: Test not performed SS-A IgG antibody assayOrder ed By: Danie Harris on 06-10-2024 SS-A/Ro IgG Antibody [facility] Comment on above: Test not performed Serum DNA double strand anti body assay (units/volume)Ordered By: Danie Harris on 06-10-2024 DNA double strand Ab Qn (S) [facility] Comment on above: Test not performed Serum Scl-70 antibody assay (units/volume)Ordered By: Danie Harris on 06-10-2024 SCL-70 extractable nuclear Ab Qn (S) [facility] Comment on above: Test not performed Serum creatinine measurement (mass/volume)Ordered By: Danie Harris on 06-10-2024 Creatinine [Mass/Vol] 1.13 mg/dL 0.70-1.20 [facility] Serum globulin measurementOr dered By: Danie Harris on 06-10-2024 Globulin (S) [Mass/Vol] 2.9 g/dL 2.2-4.2 [facility] Serum glucose measurement (m ass/volume)Ordered By: Danie Harris on 06-10-2024 Glucose [Mass/Vol] 118 mg/dL High 70-99 [facility] Serum or plasma C reactive p rotein measurement (mass/volume)Ordered By: Danie Harris on 06-10-2024 CRP [Mass/Vol] mg/L 0.0-3.0 [facility] Serum or plasma alanine sands otransferase (ALT) measurementOrdered By: Danie Harris on 06-10-2024 ALT [Catalytic activity/Vol] 16 U/L <35 [facility] Serum or plasma albumin dean urement (mass/volume)Ordered By: Danie Harris on 06-10-2024 Albumin [Mass/Vol] 4.2 g/dL 3.4-4.8 [facility] Serum or plasma albumin/glob ulin mass ratioOrdered By: Danie Harris on 06-10-2024 Albumin/Globulin [Mass ratio] 1.5 {ratio} 0.9-2.4 [facility] Serum or plasma alkaline jessica sphatase measurementOrdered By: Danie Harris on 06-10-2024 ALP [Catalytic activity/Vol] 74 U/L 35-104 [facility] Serum or plasma calcium dean urement (mass/volume)Ordered By: Danie Harris on 06-10-2024 Calcium [Mass/Vol] 9.7 mg/dL 7.6-11.0 [facility] Serum or plasma cyclic citru llinated peptide IgG antibody assay (units/volume)Ordered By: Danie Harris on 06-10-2024 Cyclic citrullinated peptide IgG Qn 8 units 0-19 [facility] Comment on above: Negative <20 Weak po sitive 20 - 39 Moderate positive 40 - 59 Strong positive >59Performed at: [facility] [place]Jeff[place] [id number] Director: Arjun Wilson PhD, Phone: [phone] Serum or plasma urea nitroge n measurement (mass/volume)Ordered By: Danie Harris on 06-10-2024 Urea nitrogen [Mass/Vol] 29 mg/dL High 4-19 [facility] Serum rheumatoid factor dete ctionOrdered By: Danie Harris on 06-10-2024 Rheumatoid factor Ql (S) 339.0 IU/mL High <15 [facility] Sodium levelOrdered By: Shorty Harris on 06-10-2024 Sodium [Moles/Vol] 132 mmol/L Low 133-145 [facility] Total proteinOrdered By: Wellington Harris on 06-10-2024 Protein [Mass/Vol] 7.1 g/dL 5.9-8.4 [facility] White blood cell (WBC) count Ordered By: Danie Harris on 06-10-2024 WBC (Bld) [#/Vol] 15.1 10*3/uL High 4.4-11.0 [facility] Absolute lymphocyte countOrd ered By: Stephane Titus on 06-03-2024 Lymphocytes Auto (Unsp spec) [#/Vol] 1.91 10*3/uL 0.83-4.51 [facility] Absolute neutrophil countOrd ered By: annabel Titus on 06-03-2024 Neutrophils (Bld) [#/Vol] 5.4 10*3/uL 2.0-7.7 [facility] Anion gap in Serum or Plasma Ordered By: Stephane Titus on 06-03-2024 Anion gap [Moles/Vol] 11 mmol/L 5-15 [facility] Automated lymphocyte count a s percentage of total leukocytesOrdered By: Stephane Titus on 06-03-2024 Lymphocytes/100 WBC Auto (Unsp spec) 23.4 % 19-41 [facility] BUN/creatinine ratioOrdered By: [facility] on 06-03-2024 Urea nitrogen/Creatinine [Mass ratio] 19.0 mg/mg 10-20 [facility] Basophil percentageOrdered B y: Stephane Titus on 06-03-2024 Basophils/100 WBC (Bld) 0.5 % 0-1 [facility] Bilirubin, totalOrdered By: Stephane Titus on 06-03-2024 Bilirubin [Mass/Vol] mg/dL 0.00-1.30 [facility] CBC W/Diff, Automatedon 05-19 Absolute Lymph 1.91 X10 3/uL Normal 0.83-4.51 [facility] Comment on above: Performed By: #### L 500.4050, L100.0100 ####[facility] [address] [place], [address] Absolute Neut 5.4 X10 3/uL Normal 2.0-7.7 [facility] Comment on above: Performed By: #### L 500.4050, L100.0100 ####[facility] [address] [place], [address] Basophils/100 WBC (Bld) 0.5 % Normal 0-1 [facility] Comment on above: Performed By: #### L 500.4050, L100.0100 ####[facility] [address] [place], [address] Eosinophils/100 WBC (Bld) 1.5 % Normal 0-5 [facility] Comment on above: Performed By: #### L 500.4050, L100.0100 ####[facility] [address] [place], [address] Erythrocyte distribution width (RBC) [Ratio] 12.7 % Normal 11.6-14.6 [facility] Comment on above: Performed By: #### L 500.4050, L100.0100 ####[facility] [address] [place], [address] Hematocrit (Bld) [Volume fraction] 37.8 % Normal 37-47 [facility] Comment on above: Performed By: #### L 500.4050, L100.0100 ####[facility] [address] [place], [address] Hemoglobin (Bld) [Mass/Vol] 12.6 g/dL Normal 12.0-15.0 [facility] Comment on above: Performed By: #### L 500.4050, L100.0100 ####[facility] [address] [place], [address] IG% 0.400 Normal 0.0-0.9 [facility] Comment on above: Result Comment: IG% - Immature Granulocytes (promyelocytes, myelocytes and metamyelocytes) > 1% indicates that a LEFT SHIFT is Present. Performed By: #### L 500.4050, L100.0100 ####[facility] [address] [place], [address] Lymphocytes/100 WBC (Bld) 23.4 % Normal 19-41 [facility] Comment on above: Performed By: #### L 500.4050, L100.0100 ####[facility] [address] [place], [address] MCH (RBC) [Entitic mass] 29.9 pg Normal 27.0-32.0 [facility] Comment on above: Performed By: #### L 500.4050, L100.0100 ####[facility] [address] [place], [address] MCHC (RBC) [Mass/Vol] 33.3 g/dL Normal 32-36 [facility] Comment on above: Performed By: #### L 500.4050, L100.0100 ####[facility] [address] [place], [address] MCV (RBC) [Entitic vol] 89.8 fL Normal 81-99 [facility] Comment on above: Performed By: #### L 500.4050, L100.0100 ####[facility] [address] [place], [address] Monocytes/100 WBC (Bld) 8.0 % Normal 0-10 [facility] Comment on above: Performed By: #### L 500.4050, L100.0100 ####[facility] [address] [place], [address] Neutrophils/100 WBC (Bld) 66.2 % Normal 47-70 [facility] Comment on above: Performed By: #### L 500.4050, L100.0100 ####[facility] [address] [place], [address] Nucleated RBC (Bld) [#/Vol] 0 10*3/uL Normal 0-5 [facility] Comment on above: Performed By: #### L 500.4050, L100.0100 ####[facility] [address] [place], [address] Platelet mean volume (Bld) [Entitic vol] 12.4 fL High 6.2-12.0 [facility] Comment on above: Performed By: #### L 500.4050, L100.0100 ####[facility] [address] [place], [address] Platelets (Bld) [#/Vol] 265 10*3/uL Normal 150-450 [facility] Comment on above: Performed By: #### L 500.4050, L100.0100 ####[facility] [address] [place], [address] RBC (Bld) [#/Vol] 4.21 10*6/uL Normal 4.2-5.4 [facility] Comment on above: Performed By: #### L 500.4050, L100.0100 ####[facility] [address] [place], [address] RDW SD 41.6 fl Normal 35.1-43.9 [facility] Comment on above: Performed By: #### L 500.4050, L100.0100 ####[facility] [address] [place], [address] WBC (Bld) [#/Vol] 8.2 10*3/uL Normal 4.4-11.0 [facility] Comment on above: Performed By: #### L 500.4050, L100.0100 ####[facility] [address] [place], [address] Carbon dioxide, total [Moles /volume] in Central venous bloodOrdered By: Stephane Titus on 06-03-2024 CO2 [Moles/Vol] 25.9 mmol/L 21.0-32.0 [facility] Chloride assayOrdered By: Renae Titus on 06-03-2024 Chloride [Moles/Vol] 98 mmol/L 98-108 [facility] Comprehensive Metabolic Prof ilon 06-03-2024 Albumin [Mass/Vol] 4.3 g/dL Normal 3.4-4.8 [facility] Comment on above: Performed By: #### L 500.4050, L100.0100 ####[facility] [address] [place], [address] Albumin/Globulin [Mass ratio] 1.5 {ratio} Normal 0.9-2.4 [facility] Comment on above: Performed By: #### L 500.4050, L100.0100 ####[facility] [address] [place], [address] ALK PHOS 65 U/L Normal 35-104 [facility] Comment on above: Performed By: #### L 500.4050, L100.0100 ####[facility] [address] [place], [address] ALT [Catalytic activity/Vol] 16 U/L Normal <=34 [facility] Comment on above: Performed By: #### L 500.4050, L100.0100 ####[facility] [address] [place], [address] AST [Catalytic activity/Vol] 25 U/L Normal <=31 [facility] Comment on above: Performed By: #### L 500.4050, L100.0100 ####[facility] [address] [place], [address] BUN/CRE 19.0 RATIO Normal 10-20 [facility] Comment on above: Performed By: #### L 500.4050, L100.0100 ####[facility] [address] [place], [address] Calcium [Mass/Vol] 9.8 mg/dL Normal 7.6-11.0 [facility] Comment on above: Performed By: #### L 500.4050, L100.0100 ####[facility] [address] [place], [address] Chloride [Moles/Vol] 98 mmol/L Normal 98-108 [facility] Comment on above: Performed By: #### L 500.4050, L100.0100 ####[facility] [address] [place], [address] CO2 [Moles/Vol] 25.9 mmol/L Normal 21.0-32.0 [facility] Comment on above: Performed By: #### L 500.4050, L100.0100 ####[facility] [address] [place], [address] Creatinine [Mass/Vol] 1.13 mg/dL Normal 0.70-1.20 [facility] Comment on above: Performed By: #### L 500.4050, L100.0100 ####[facility] [address] [place], [address] GAP 11 Normal 5-15 [facility] Comment on above: Performed By: #### L 500.4050, L100.0100 ####[facility] [address] [place], [address] GFR/1.73 sq M.predicted among non-blacks MDRD (S/P/Bld) [Vol rate/Area] 49 mL/min/{1.73_m2} Low >60 [facility] Comment on above: Result Comment: mL/m in/1.73m2 CKD-EPI Creatinine Equation (2020) Performed By: #### L 500.4050, L100.0100 ####[facility] [address] [place], [address] Globulin (S) [Mass/Vol] 2.8 g/dL Normal 2.2-4.2 [facility] Comment on above: Performed By: #### L 500.4050, L100.0100 ####[facility] [address] [place], [address] Glucose [Mass/Vol] 95 mg/dL Normal 70-99 [facility] Comment on above: Performed By: #### L 500.4050, L100.0100 ####[facility] [address] [place], [address] Potassium [Moles/Vol] 3.7 mmol/L Normal 3.3-5.1 [facility] Comment on above: Performed By: #### L 500.4050, L100.0100 ####[facility] [address] [place], [address] Sodium [Moles/Vol] 135 mmol/L Normal 133-145 [facility] Comment on above: Performed By: #### L 500.4050, L100.0100 ####[facility] [address] [place], [address] T BILI < 0.15 Normal 0.00-1.30 [facility] Comment on above: Performed By: #### L 500.4050, L100.0100 ####[facility] [address] [place], [address] T PROT 7.1 g/dL Normal 5.9-8.4 [facility] Comment on above: Performed By: #### L 500.4050, L100.0100 ####[facility] [address] [place], [address] Urea nitrogen [Mass/Vol] 22 mg/dL High 4-19 [facility] Comment on above: Performed By: #### L 500.4050, L100.0100 ####[facility] [address] [place], [address] Eosinophil percentageOrdered By: Stephane Titus on 06-03-2024 Eosinophils/100 WBC (Bld) 1.5 % 0-5 [facility] Erythrocyte distribution wid th (RBC) [Ratio]Ordered By: Stephane Titus on 06-03-2024 Erythrocyte distribution width (RBC) [Entitic vol] 41.6 fL 35.1-43.9 [facility] Erythrocyte distribution wid th ratioOrdered By: Stephane Titus on 06-03-2024 Erythrocyte distribution width (RBC) [Ratio] 12.7 % 11.6-14.6 [facility] Erythrocyte distribution wid th standard deviationOrdered By: Stephane Titus on 06-03-2024 Erythrocyte distribution width (RBC) [Ratio] 41.6 fl 35.1-43.9 [facility] GFR/1.73 sq M.predicted rosa g non-blacks MDRD (S/P/Bld) [Vol rate/Area]Ordered By: Stephane Titus on 06-03-2024 Estimated GFR (MDRD) Non-Af Amer 49 Low >60 [facility] Comment on above: mL/min/1.73m2 CKD-EP I Creatinine Equation (2020) Glomerular filtration rate ( GFR) estimation/1.73 sq m using serum, plasma, or whole bOrdered By: Stephane Titus on 06-03-2024 GFR/1.73 sq M.predicted among non-blacks MDRD (S/P/Bld) [Vol rate/Area] 49 mL/min/{1.73_m2} Low >60 [facility] Comment on above: mL/min/1.73m2 CKD-EP I Creatinine Equation (2020) Hematocrit Auto (Bld) [Volum e fraction]Ordered By: Stephane Titus on 06-03-2024 Hematocrit (Bld) [Volume fraction] 37.8 % 37-47 [facility] Hemoglobin measurementOrdere d By: Stephane Titus on 06-03-2024 Hemoglobin (Bld) [Mass/Vol] 12.6 g/dL 12.0-15.0 [facility] Immature granulocytes/100 WB C Auto (Bld)Ordered By: Stephane Titus on 06-03-2024 Immature granulocytes/100 WBC (Bld) 0.400 % 0.0-0.9 [facility] Comment on above: IG% - Immature Granu locytes (promyelocytes, myelocytes and metamyelocytes) > 1% indicates that a LEFT SHIFT is Present. Internal Medicine Office Vis braydon 06-03-2024 Internal Medicine Office Visit [facility] [address] [place] [address] [address] [place] [address] OFFICE VISIT Date of Service: 06/03/24 MR#: [id number] Acct: [id number] Name: JANE MABRY Rep #: [id number] : 1940 Provider: Dr. Stephane dunn MD Age/Sex: 84/F Location: [facility] [place] Status: Signed Intake Vital Signs 11/29/23 09:04 06/03/24 14:14 Height 5 ft 5 ft Weight: 166 lb BMI 32.4 BP 132/68 H Blood Pressure Location Lt brachial Position Sitting Respiration 18 Pulse 50 L Pulse Source Monitor Temp 97.5 F L Temp Source Temporal Pulse Oximetry (%) 96 Oxygen Delivery Method room air Intake Visit Reasons: CHK UP Chief Complaint: Follow-up chronic conditions. Several concerns. Is patient in pain?: Yes (8 lower back ) Allergies Penicillins Allergy (Verified 06/03/24 14:11) Rash Sulfa (Sulfonamide Antibiotics) Allergy (Verified 06/03/24 14:11) Rash Medications ???Medication ???Instructions ???Recorded ???Confirmed ???Type calcium carbonate (Calcium 600) 600 mg PO DAILY 06/20/21 06/03/24 History cholecalciferol (vitamin D3) 25 25 mcg PO DAILY 07/03/21 06/03/24 History mcg (1,000 unit) capsule diclofenac sodium 1 % topical gel 2 g topical ONCE PRN 10/10/22 History (Voltaren Arthritis Pain) lactobacillus combination no.9 4 4,000 mmu cells PO DAILY 08/28/23 06/03/24 History billion cell capsule (Adult 50 Plus Probiotic) atenolol 50 mg-chlorthalidone 25 1 tab PO DAILY #90 tabs 01/23/24 0 06/03/24 Rx mg tablet lovastatin 10 mg tablet 10 mg PO DAILY #90 tabs 01/23/24 0 06/03/24 Rx CBD cream topical PRN 06/03/24 06/03/24 Hist ory acetaminophen 500 mg tablet 500 mg PO Q6H PRN 06/03/24 5 History (Tylenol Extra Strength) methylprednisolone 4 mg tablets in See Rx Instructions PO PER PKG D IR 06/03/24 06/03/24 Rx a dose pack (Medrol ([place])) #21 tabs Have you fallen in the past year?: No PFSH Medical History (Updated 06/03/24 @ 17:[address] Stephane Titus MD) Dermatitis of nipple Chronic back pain CKD (chronic kidney disease), stage III Overactive bladder Lung nodule Diarrhea Abnormal finding on CT scan Nodule of right lung Grief reaction Abdominal pain Change in bowel habit Generalized anxiety disorder Stress at home Hyperlipidemia Health care maintenance Breast cancer screening Open wound of left forearm Age-related cognitive decline Osteoarthritis Bilateral impacted cerumen Loss of one eye Urinary tract infection Cancer DVT (deep venous thrombosis) High cholesterol Easy bruising Non-smoker Leg cramps History of edema Hypertension History of eye prosthesis Family history of colon cancer Arthritis Hx of thyroid cancer Surgical History Hx of colonoscopy Hx of cataract extraction History of tonsillectomy History of tubal ligation History of partial thyroidectomy Family History Mother Colon cancer Hypertension Sister Hypertension Breast cancer Father Heart disease Hypertension Brother Diabetes Social History Smoking Status: Never smoker alcohol intake: current alcohol intake frequency: holidays/special occasions only substance use type: does not use caffeine: Yes what type of physical activity do you participate in: walking and other details: golf frequency: 1-2 times per week HPI HPI Chief Complaint: Follow-up chronic conditions. Several concerns. Details: JANE MABRY, is a 84 F who presents to the office today for follow-up of chronic conditions. Also has some concerns. She reports low back pain which has been present for a few months. Sudden onset. Worse in certain positions. No significant numbness or tingling down her extremities. No known relieving factors. Did not get imaging in [place]. She also reports left foot pain. This pain has been present for a while. Was seen by a surgeon and was told that surgery is needed however she was not open to this. She states that she had a shot at that time which she found helpful until lately. No recent trauma. She also reports increased watery bowel movement typically in the morning. Has about 2-3 bowel movements and then none for the rest of the day. No abdominal pain. Denies any recent dietary changes. No blood in her stool. She reports itching around her nipples. This is not daily but intermittent. No pain discharge. History of recurrent cerumen impaction, she feels that it is impacted again. She states that she has been using [id number] Debrox but this has not been helpful. ROS Const Constitutional: No body ache, chills, excessive sweating, fatigue, fever(s), frequent falls, heada (more content not included)... Normal [facility] L/S Spine Min 4 Viewson 05-19 L/S Spine Min 4 Views [facility] Imaging Services [address] [place] [address] L/S Spine Min 4 Views MR#: [id number] Acct: [id number] Name: JANE MABRY Rep #: [id number] : 1940 F 84 From: Lori Chavarria DO PCP: Dr. Stephane Titus MD Status: REG CLI Study: L/S Spine Min 4 Views Date of Exam: 06/03/24 Exam# [id number] Ordering Dr: Stephane Titus MD PROCEDURE: L/S SPINE MIN 4 VIEWS 06/03/2024 REASON FOR EXAM: CHRONIC BACK PAIN TECHNIQUE: Four views of the lumbosacral spine were obtained. COMPARISON: None FINDINGS: Vertebrae: No acute fracture. The lumbar vertebral body heights are preserved. Discs: Advanced multilevel disc space narrowing with endplate osteophytes. Alignment: Straightening of the lumbar alignment likely due to positioning. Other: RAD/L/S Spine Min 4 Views IMPRESSION: Degenerative changes of the lumbar spine as described above. No acute fracture. Reading Location: [facility] CC: Dr. Stephane Titus MD Casing Crew: Signed Normal [facility] Laboratory - Chemistry and C hemistry - challengeOrdered By: Stephane Titus on 06-03-2024 AST [Catalytic activity/Vol] 25 U/L <32 [facility] Lymphocytes Auto (Unsp spec) [#/Vol]Ordered By: Stephane Titus on 06-03-2024 Lymphocytes (Bld) [#/Vol] 1.91 10*3/uL 0.83-4.51 [facility] Lymphocytes/100 WBC Auto (Un sp spec)Ordered By: Stephane Titus on 06-03-2024 Lymphocytes/100 WBC (Bld) 23.4 % 19-41 [facility] MCV (mean corpuscular volume ) determinationOrdered By: Stephane Titus on 06-03-2024 MCV (RBC) [Entitic vol] 89.8 fL 81-99 [facility] Mean corpuscular hemoglobin (MCH) determinationOrdered By: Stephane Titus on 06-03-2024 MCH (RBC) [Entitic mass] 29.9 pg 27.0-32.0 [facility] Mean corpuscular hemoglobin concentration (MCHC) determinationOrdered By: Stephane Titus on 06-03-2024 MCHC (RBC) [Mass/Vol] 33.3 g/dL 32-36 [facility] Mean platelet volume determi nationOrdered By: Stephane Titus on 06-03-2024 Platelet mean volume (Bld) [Entitic vol] 12.4 fL High 6.2-12.0 [facility] Monocyte percentageOrdered B y: Stephane Titus on 06-03-2024 Monocytes/100 WBC (Bld) 8.0 % 0-10 [facility] Neutrophil percentageOrdered By: Stephane Titus on 06-03-2024 Neutrophils/100 WBC (Bld) 66.2 % 47-70 [facility] Nucleated red blood cell per centageOrdered By: Stephane Titus on 06-03-2024 Nucleated RBC/100 WBC (Bld) [Ratio] 0 % 0-5 [facility] Platelet countOrdered By: Renae Titus on 06-03-2024 Platelets (Bld) [#/Vol] 265 10*3/uL 150-450 [facility] Potassium (Unsp spec) [Mass/ Vol]Ordered By: Stephane Titus on 06-03-2024 Potassium [Moles/Vol] 3.7 mmol/L 3.3-5.1 [facility] Potassium measurement (mass/ volume)Ordered By: Stephane Titus on 06-03-2024 Potassium (Unsp spec) [Mass/Vol] 3.7 mmol/L 3.3-5.1 [facility] RBC Auto (Bld) [#/Vol]Ordere d By: Stephane Titus on 06-03-2024 RBC (Bld) [#/Vol] 4.21 10*6/uL 4.2-5.4 [facility] Serum creatinine measurement (mass/volume)Ordered By: Stephane Titus on 06-03-2024 Creatinine [Mass/Vol] 1.13 mg/dL 0.70-1.20 [facility] Serum globulin measurementOr dered By: Stephane Titus 06-03-2024 Globulin (S) [Mass/Vol] 2.8 g/dL 2.2-4.2 [facility] Serum glucose measurement (m ass/volume)Ordered By: Stephane Titus on 06-03-2024 Glucose [Mass/Vol] 95 mg/dL 70-99 [facility] Serum or plasma alanine sands otransferase (ALT) measurementOrdered By: Stephane Titus 06-03-2024 ALT [Catalytic activity/Vol] 16 U/L <35 [facility] Serum or plasma albumin dean urement (mass/volume)Ordered By: Stephane Titus on 06-03-2024 Albumin [Mass/Vol] 4.3 g/dL 3.4-4.8 [facility] Serum or plasma albumin/glob ulin mass ratioOrdered By: Stephane Titus 06-03-2024 Albumin/Globulin [Mass ratio] 1.5 {ratio} 0.9-2.4 [facility] Serum or plasma alkaline jessica sphatase measurementOrdered By: Stephane Titus 06-03-2024 ALP [Catalytic activity/Vol] 65 U/L 35-104 [facility] Serum or plasma calcium dean urement (mass/volume)Ordered By: Stephane Titus on 06-03-2024 Calcium [Mass/Vol] 9.8 mg/dL 7.6-11.0 [facility] Serum or plasma urea nitroge n measurement (mass/volume)Ordered By: Stephane Titus on 06-03-2024 Urea nitrogen [Mass/Vol] 22 mg/dL High 4-19 [facility] Sodium levelOrdered By: Britney Titus on 06-03-2024 Sodium [Moles/Vol] 135 mmol/L 133-145 [facility] Total proteinOrdered By: Cristino Titus on 06-03-2024 Protein [Mass/Vol] 7.1 g/dL 5.9-8.4 [facility] White blood cell (WBC) count Ordered By: Stephane Titus on 06-03-2024 WBC (Bld) [#/Vol] 8.2 10*3/uL 4.4-11.0 [facility] Office Visit Reporton 2023 Office Visit Report [facility] [address] [place] [address] OFFICE VISIT Date of Service: 12/03/23 MR#: [id number] Acct: [id number] Patient: JANE MABRY Rep #: [id number] : 1940 Provider: NATTY NURSE Age/Sex: 83/F Location[place] [facility] [place] Status: Signed Intake Vital Signs 11/29/23 09:04 Height 5 ft Weight: 162 lb 6 oz BMI 31.7 BP 118/76 Blood Pressure Location Lt brachial Position Sitting Respiration 16 Pulse 68 Pulse Source Monitor Temp 97.6 F L Temp Source Temporal Pulse Oximetry (%) 99 Oxygen Delivery Method room air Intake Visit Reasons: RT EAR FLUSH Chief Complaint: 3m f/u Allergies Penicillins Allergy (Verified 11/29/23 09:00) Rash Sulfa (Sulfonamide Antibiotics) Allergy (Verified 11/29/23 09:00) Rash Have you fallen in the past year?: No Office Procedures Cerumen Removal Procedure BMS Cerumen Removal Procedure Procedure performed by: Lei Sebastian Method of removal: irrigation From which ear canal was the cerumen removed: right Amount of Cerumen: moderate Patient tolerated procedure: well Complications: none Assessment and Plan Assessment and Plan (1) Bilateral impacted cerumen: Status: Chronic Orders: Orders Cerumen Removal [facility] [place] 12/03/23 H61.21 - Impacted cerumen, right ear Clinical Quality Measures Falls Risk Screening/Assistive Devices Have you fallen in the past year?: No 12/04/23 1714 Date Stephane Pérez Signature: Date (if applicable) CC: Normal [facility] Comprehensive Metabolic Prof ilon 11-29-2023 Albumin [Mass/Vol] 3.6 g/dL Normal 3.2-5.0 [facility] Comment on above: Performed By: #### L 506.1000, L500.4050, L500.4100 #### [facility] [address] [place], [address] Albumin/Globulin [Mass ratio] 1.0 {ratio} Normal 0.9-2.4 [facility] Comment on above: Performed By: #### L 506.1000, L500.4050, L500.4100 #### [facility] [address] [place], [address] ALK P 74 U/L Normal 45-117 [facility] Comment on above: Performed By: #### L 506.1000, L500.4050, L500.4100 #### [facility] [address] [place], [address] ALT [Catalytic activity/Vol] 20 U/L Normal 13-56 [facility] Comment on above: Performed By: #### L 506.1000, L500.4050, L500.4100 #### [facility] [address] [place], [address] AST [Catalytic activity/Vol] 23 U/L Normal 15-37 [facility] Comment on above: Performed By: #### L 506.1000, L500.4050, L500.4100 #### [facility] [address] [place], [address] Bilirubin [Mass/Vol] 0.50 mg/dL Normal 0.20-1.00 [facility] Comment on above: Result Comment: For patients on eltrombopag therapy, use of Dimension [place] TBIL is not recommended. Performed By: #### L 506.1000, L500.4050, L500.4100 #### [facility] [address] [place], [address] BUN/CRE 22.8 RATIO High 10-20 [facility] Comment on above: Performed By: #### L 506.1000, L500.4050, L500.4100 #### [facility] [address] [place], [address] CA,Total 9.8 mg/dL Normal 8.5-10.1 [facility] Comment on above: Performed By: #### L 506.1000, L500.4050, L500.4100 #### [facility] [address] [place], [address] Chloride [Moles/Vol] 104 mmol/L Normal 98-107 [facility] Comment on above: Performed By: #### L 506.1000, L500.4050, L500.4100 #### [facility] [address] [place], [address] CO2 [Moles/Vol] 28.0 mmol/L Normal 21.0-32.0 [facility] Comment on above: Performed By: #### L 506.1000, L500.4050, L500.4100 #### [facility] [address] [place], [address] Creatinine [Mass/Vol] 1.14 mg/dL High 0.55-1.02 [facility] Comment on above: Result Comment: The validity of the calculated GFR GFRAA in patients over 70 years has not been determined. Clinical correlation is essential. Performed By: #### L 506.1000, L500.4050, L500.4100 #### [facility] [address] [place], [address] EST GFR - AA 59 mL/min Low >60 [facility] Comment on above: Result Comment: Afri can [place] GFR Calc Performed By: #### L 506.1000, L500.4050, L500.4100 #### [facility] [address] [place], [address] GAP 5 Normal 5-15 [facility] Comment on above: Performed By: #### L 506.1000, L500.4050, L500.4100 #### [facility] [address] [place], [address] GFR/1.73 sq M.predicted among non-blacks MDRD (S/P/Bld) [Vol rate/Area] 49 mL/min/{1.73_m2} Low >60 [facility] Comment on above: Result Comment: Non- GFR Calc Performed By: #### L 506.1000, L500.4050, L500.4100 #### [facility] [address] [place], [address] Globulin (S) [Mass/Vol] 3.6 g/dL Normal 2.2-4.2 [facility] Comment on above: Performed By: #### L 506.1000, L500.4050, L500.4100 #### [facility] [address] [place], [address] Glucose [Mass/Vol] 85 mg/dL Normal 74-106 [facility] Comment on above: Performed By: #### L 506.1000, L500.4050, L500.4100 #### [facility] [address] [place], [address] Potassium [Moles/Vol] 4.5 mmol/L Normal 3.5-5.1 [facility] Comment on above: Performed By: #### L 506.1000, L500.4050, L500.4100 #### [facility] [address] [place], [address] Sodium [Moles/Vol] 137 mmol/L Normal 136-145 [facility] Comment on above: Performed By: #### L 506.1000, L500.4050, L500.4100 #### [facility] [address] [place], [address] T PROT 7.2 g/dL Normal 6.4-8.2 [facility] Comment on above: Performed By: #### L 506.1000, L500.4050, L500.4100 #### [facility] [address] [place], [address] Urea nitrogen [Mass/Vol] 26 mg/dL High 7-18 [facility] Comment on above: Performed By: #### L 506.1000, L500.4050, L500.4100 #### [facility] [address] [place], [address] Internal Medicine Office Vis braydon 11-29-2023 Internal Medicine Office Visit [facility] [address] [place] [address] [place] [address] OFFICE VISIT Date of Service: 11/29/23 MR#: [id number] Acct: [id number] Name: JANE MABRY Rep #: [id number] : 1940 Provider: Dr. Stephane dunn MD Age/Sex: 83/F Location: [facility] Status: Signed Intake Vital Signs 08/28/23 08:49 11/29/23 09:04 Height 5 ft 5 ft Weight: 162 lb 6 oz BMI 31.7 BP 118/76 Blood Pressure Location Lt brachial Position Sitting Respiration 16 Pulse 68 Pulse Source Monitor Temp 97.6 F L Temp Source Temporal Pulse Oximetry (%) 99 Oxygen Delivery Method room air Intake Visit Reasons: 3 M FU Chief Complaint: 3m f/u Denial Management Representative Required: No Accompanied by: Self Is patient in pain?: No Allergies Penicillins Allergy (Verified 11/29/23 09:00) Rash Sulfa (Sulfonamide Antibiotics) Allergy (Verified 11/29/23 09:00) Rash Medications ???Medication ???Instructions ???Recorded ???Confirmed ???Type lartjcqn-[id number] C 250 1 tab PO DAILY 07/07/20 11/29/23 History mg-herbal no.124 11.66 mg chewable tablet (Airborne Gummy) calcium carbonate (Calcium 600) 600 mg PO DAILY 06/20/21 11/29/23 History cholecalciferol (vitamin D3) 25 25 mcg PO DAILY 07/03/21 11/29/23 History mcg (1,000 unit) capsule diclofenac sodium 1 % topical gel 2 g topical ONCE PRN 10/10/22 11/29/23 History (Voltaren Arthritis Pain) atenolol 50 mg-chlorthalidone 25 1 tab PO DAILY #90 tabs 06/11/23 11/29/23 Rx mg tablet lovastatin 10 mg tablet 10 mg PO DAILY #90 tabs 06/11/23 11/29/23 Rx lactobacillus combination no.9 4 4,000 mmu cells PO DAILY 08/28/23 11/29/23 History billion cell capsule (Adult 50 Plus Probiotic) meloxicam 15 mg tablet 15 mg PO ONCE PRN pain #30 tabs 11/14/23 11/29/23 Rx Have you fallen in the past year?: No PFSH Medical History (Updated 11/29/23 @ 09:[address] Stephane Titus MD) CKD (chronic kidney disease), stage III Overactive bladder Lung nodule Diarrhea Abnormal finding on CT scan Nodule of right lung Grief reaction Abdominal pain Change in bowel habit Generalized anxiety disorder Stress at home Hyperlipidemia Health care maintenance Breast cancer screening Open wound of left forearm Age-related cognitive decline Osteoarthritis Bilateral impacted cerumen Loss of one eye Urinary tract infection Cancer DVT (deep venous thrombosis) High cholesterol Easy bruising Non-smoker Leg cramps History of edema Hypertension History of eye prosthesis Family history of colon cancer Arthritis Hx of thyroid cancer Surgical History Hx of colonoscopy Hx of cataract extraction History of tonsillectomy History of tubal ligation History of partial thyroidectomy Family History Mother Colon cancer Hypertension Sister Hypertension Breast cancer Father Heart disease Hypertension Brother Diabetes Social History Smoking Status: Never smoker alcohol intake: current alcohol intake frequency: holidays/special occasions only substance use type: does not use caffeine: Yes what type of physical activity do you participate in: walking and other details: golf frequency: 1-2 times per week HPI HPI Chief Complaint: 3m f/u Details: JANE MABRY, is a 83 F who presents to the office today for follow-up of her chronic medical conditions. No acute concerns at this time. History of hypertension, blood pressure today at 118/76 mmHg. Much improved from prior readings. She states that she has been more active lately. No chest pain, palpitation or shortness of breath. History of abnormal lung nodule status post PET scan. No concerns for neoplasm. She denies chest pain shortness of breath. No weight loss. Feels well. History of overactive bladder. Has made some lifestyle changes and overall she states that she is doing okay. Not life altering. Other chronic medical conditions are stable. Has received her flu shot. ROS Const Constitutional: No body ache, chills, excessive sweating, fatigue, fever(s), frequent falls, headache(s), snoring, weakness or change in appetite Eyes Eyes: No blurry vision, change in vision, eye pain or Light sensitivity ENT ENT: No abnormal hearing, ear or mastoid pain, tinnitus, nasal congestion, headache(s), neck pain or sore throat Resp Respiratory: No cough, shortness of breath, snoring or wheezing Cardio Cardiology: No chest pain at rest, chest pain with exertion, excessive sweating, dyspnea on exertion, lightheadedness, orthopnea or palpitations Gastro GI: No abdominal pain, change in bowel habits, constipation, cramping, diarrhea, nausea/dyspepsia or vomiting Peggy (more content not included)... Normal [facility] Lipid Profileon 11-29-2023 Cholesterol [Mass/Vol] 177 mg/dL Normal 200 [facility] Comment on above: Result Comment: <200 mg/dL Desirable 200-240 mg/dL Borderline >240 mg/dL High Risk Performed By: #### L 506.1000, L500.4050, L500.4100 #### [facility] [address] [place], [address] Cholesterol in HDL [Mass/Vol] 68 mg/dL Normal [facility] Comment on above: Result Comment: The drugs N-Acetylcysteine and Metamizole may falsely depress this assay. Reference Range HDL <40 mg/dL Low HDL Cholesterol HDL >or= 60 mg/dL High HDL Cholesterol Performed By: #### L 506.1000, L500.4050, L500.4100 #### [facility] [address] [place], [address] Cholesterol in LDL [Mass/Vol] 90 mg/dL Normal 0-130 [facility] Comment on above: Performed By: #### L 506.1000, L500.4050, L500.4100 #### [facility] [address] [place], [address] Cholesterol in VLDL [Mass/Vol] 19 mg/dL Normal 5-40 [facility] Comment on above: Performed By: #### L 506.1000, L500.4050, L500.4100 #### [facility] [address] [place], [address] Triglyceride [Mass/Vol] 97 mg/dL Normal [facility] Comment on above: Result Comment: The drugs N-Acetylcysteine and Metamizole may falsely depress this assay. Serum Triglycerides Reference Interval Normal <150 mg/dL Borderline high 150 - 199 mg/dL High 200 - 499 mg/dL Very High > or = 500 mg/dL Performed By: #### L 506.1000, L500.4050, L500.4100 #### [facility] [address] [place], [address] Vitamin D,25 Hydroxyon 11-28 Vitamin D 25-OH 65.0 ng/mL Normal [facility] Comment on above: Result Comment: Chata min D 25(OH) Status Range Deficiency <20 ng/mL (50nmol/L) Insufficiency 20 - 30 ng/mL (50 - 75 nmol/L) Sufficiency 30 - 100 ng/mL (75 - 250 nmol/L) Toxicity >100 ng/mL (>250 nmol/L) Performed By: #### L 506.1000, L500.4050, L500.4100 #### [facility] [address] [place], [address] PET/CT Tumor Base -Thigh Ini ton 11-12-2023 PET/CT Tumor Base -Thigh Init [facility] Imaging Services [address] [place] [address] PET/CT Tumor Base -Thigh Init MR#: [id number] Acct: [id number] Name: JANE MABRY Rep #: [id number] : 1940 F 83 From: [facility] Gunn PCP: Dr. Stephane Titus MD Status: [facility] Study: PET/CT Tumor Base -Thigh Init Date of Exam: Exam# [id number] Ordering Dr: Stephane Titus [place] [id number] EXAMINATION: FDG-PET/CT ? INDICATIONS: 83-year-old female with a history of pulmonary nodularity. ? COMPARISON EXAMINATION: CT of the chest dated 10/08/2023. TECHNIQUE: Following the intravenous administration of 15.6 mCi of F-18 deoxyglucose via the left antecubital fossa, multiplanar image acquisitions of the head, neck, chest, abdomen and pelvis to the level of the midthigh, obtained at one-hour post radiopharmaceutical administration contemporaneously interpreted with the current CT of the chest, abdomen and pelvis dated 11/12/[address] of the chest dated 10/08/2023 via coregistration reveal: ? SERUM GLUCOSE LEVEL:? 94 mg/dL? HEIGHT:?? 60 inches WEIGHT:?? 160 pounds ? FINDINGS: ? HEAD/NECK:? There is no evidence of abnormal increased glucose metabolism in the pharyngeal mucosal space, parapharyngeal space, oropharynx, bilateral-lateral and anterior neck, hypopharynx and distribution of the larynx. ? The visualized portion of the cerebral cortical-subcortical structures demonstrate symmetric and preserved glucose metabolism. ? CHEST:? There is no quantitative scintigraphic evidence of abnormal increased glucose metabolism within the context of the bilateral hemithorax pulmonary parenchyma, right and left hemithorax at the pleural interface, mediastinal structures, and left-right thoracic perihilum. The left ventricular myocardium visualization is consistent with the [place]. ? CT of the chest demonstrates the following anatomic characteristics: An ovoid noncalcified nodular density noted in the right lower posteromedial lung zone demonstrates no evidence of quantitatively significant increased FDG uptake. Bilateral axillary soft tissue densities are ametabolic.? Minimal coronary artery calcification is observed.? Atherosclerotic calcification is defined in the thoracic aorta. Calcified and noncalcified mediastinal soft tissue densities are ametabolic. ? ABDOMEN/PELVIS:? Normal physiologic distribution of the radiopharmaceutical is identified in the hepatic and splenic parenchyma, both renal units, urinary bladder, and visualized intestinal tract. Diffuse intestinal tract is identified in all four quadrants of the abdominal-pelvic mesentery. ? CT of the abdomen and pelvis is remarkable for the following: Atherosclerotic calcification is defined in the abdominal aorta without evidence of dilatation, aneurysm formation. Pelvic arterial calcification is observed. Calcification is manifest within the uterus. Colonic diverticulosis is noted without evidence of diverticulitis. ? SKELETAL:? There is no evidence of quantitatively significant enhanced glucose metabolism on meticulous inspection of the appendicular and axial skeletal structures. ? Degenerative changes defined in the thoracic and lumbar spine demonstrate no evidence of increased glucose metabolism. There are no sclerotic, mixed sclerotic-lytic, or primarily lytic changes defined in the axial skeletal structures with evidence of increased FDG uptake. ? PET/PET/CT Tumor Base -Thigh Init IMPRESSION: 1. NEGATIVE EXAMINATION. There is no definitive quantitative scintigraphic evidence of viable neoplasm. 2. Meticulous attention paid to the right lower posteromedial lung zone demonstrates no evidence of quantitatively significant increased FDG uptake to correlate with the parenchymal density-nodule defined on CT of the thorax dated 11/12/2023. 3. Anatomic stability may be ensured with repeat FDG-PET CT of the right lower posteromedial lung zone in 3-6 months if clinically indicated. (Annalise, Seminars in Thoracic and Cardiovascular surgery, 14:292, 2002). Electronic Signature Gray Eaton D.O. Accurate Quantification of SUVs for this report are calculated using the exclusive [employer]. (U.S. Patent No. [phone] B2 US [phone] [place] patent [phone]). Standardization and correction of the FDG SUV metric via [employer] technology allow for vendor non-specific objective quantitative examination comparison and optimization of the sensitivity and specificity of the FDG PET-CT examination. https://[email or web address].Ogin/1 [email or web address] https://[employer] ? Electronically Signed: Gray Eaton DO at 7:47 EDT , CC: Dr. Calderón (more content not included)... Normal [facility] No Panel InformationOrdered By: Arjun Martinez on 06-24-2023 C-Reactive Protein Extended Range 4.20 mg/L 0.0-3.0 [facility] Comment on above: C-Reactive Protein ( CRP) provides useful information for thediagnosis, therapy and monitoring of inflammatory processesand associated diseases. For the evaluation of Relative Riskfor Cardiovascular Disease, a High Sensitivity CRP (HSCRP)should be ordered. Endomysial IgA Antibody Negative Negative [facility] Serum or plasma IgA measurem ent (mass/volume)Ordered By: Arjun Martinez on 06-24-2023 IgA [Mass/Vol] 113 mg/dL 64-422 [facility] Comment on above: Performed at: [place] [id number] Director: Arjun Wilson PhD, Phone: [phone] Serum tissue transglutaminas e IgA antibody assay (units/volume)Ordered By: Arjun Martinez on 06-24-2023 tTG IgA Qn (S) <2 U/mL 0-3 [facility] Comment on above: Negative 0 - 3 Weak Positive 4 - 10 Positive >10 Tissue Transglutaminase (tTG) has been identified as the endomysial antigen. Studies have demonstr- ated that endomysial IgA antibodies have over 99% specificity for gluten sensitive enteropathy. Lower GI hemoglobin IA Ql (S tl)Ordered By: Stephane Titus on 06-14-2023 Stool Occult Blood (SUN) Positive [facility] No Panel InformationOrdered By: Stephane Titus on 06-14-2023 Miscellaneous Test See comment [facility] Comment on above: TEST RESULTS LIMITSS tool CultureSalmonella/Shigella Screen Final reportResult 1No Salmonella or Shigella recovered.Campylobacter Culture Final reportResult 1No Campylobacter species isolated.E coli Shiga Toxin EIA Negative Negative TESTING PERFORMED AT [facility]. ORIGINAL REPORT ON FILE IN LAB CONTAINS ADDITIONAL TEST SITE INFORMATION. Stool lactoferrin detection by immunoassayOrdered By: Stephane Titus on 06-14-2023 Lactoferrin IA Ql (Stl) [facility] Serum or plasma thyroid stim ulating hormone (TSH) measurement (units/volume)Ordered By: Stephane Titus on 06-13-2023 TSH Qn 2.19 uIU/mL 0.358-3.74 [facility] Thin prep Papanicolaou smear with manual screeningOrdered By: Stephane Titus on 06-13-2023 Thin prep Papanicolaou smear with manual screening 1.00 ng/dL 0.76-1.46 [facility] Clostridioides difficile nuc leic acid assay by PCROrdered By: Stephane Titus on 06-11-2023 C. difficile DNA RICHIE+probe Ql (Unsp spec) [facility] Absolute lymphocyte countOrd ered By: Stephane Titus on 05-29-2023 Lymphocytes Auto (Unsp spec) [#/Vol] 1.38 10*3/uL 0.83-4.51 [facility] Automated lymphocyte count a s percentage of total leukocytesOrdered By: roturnerjacquie Mcnairantoinekain on 05-29-2023 Lymphocytes/100 WBC Auto (Unsp spec) 20.6 % 19-41 [facility] Basophil percentageOrdered B y: Stephane Titus on 05-29-2023 Basophils/100 WBC (Bld) 0.7 % 0-1 [facility] Bilirubin [Mass/Vol] 0.40 mg/dL 0.20-1.00 [facility] Comment on above: For patients on eltr ombopag therapy, use of Dimension [place] TBIL is not recommended. Chloride [Moles/Vol] 104 mmol/L 98-107 [facility] Eosinophils/100 WBC (Bld) 2.5 % 0-5 [facility] Glucose [Mass/Vol] 89 mg/dL 74-106 [facility] Hemoglobin (Bld) [Mass/Vol] 13.1 g/dL 12.0-15.0 [facility] Monocytes/100 WBC (Bld) 7.6 % 0-10 [facility] Neutrophils (Bld) [#/Vol] 4.6 10*3/uL 2.0-7.7 [facility] Neutrophils/100 WBC (Bld) 68.3 % 47-70 [facility] Potassium [Moles/Vol] 4.5 mmol/L 3.5-5.1 [facility] Protein [Mass/Vol] 7.9 g/dL 6.4-8.2 [facility] Sodium [Moles/Vol] 137 mmol/L 136-145 [facility] WBC (Bld) [#/Vol] 6.7 10*3/uL 4.4-11.0 [facility] Determination of erythrocyte mean corpuscular volume (MCV)Ordered By: Stephane Titus on 05-29-2023 MCV (RBC) [Entitic vol] 92.3 fL 81-99 [facility] Erythrocyte distribution wid th ratioOrdered By: [facility] Xukain on 05-29-2023 Erythrocyte distribution width (RBC) [Ratio] 12.6 % 11.6-14.6 [facility] Erythrocyte distribution wid th standard deviationOrdered By: [facility] Mc[facility]airk[facility] on 05-29-2023 Erythrocyte distribution width (RBC) [Entitic vol] 42.7 fL 35.1-43.9 [facility] Hematocrit Auto (Bld) [Volum e fraction]Ordered By: roturnerjacquie Mcnairkain on 05-29-2023 Hematocrit (Bld) [Volume fraction] 42.0 % 37-47 [facility] Immature granulocytes/100 WB C Auto (Bld)Ordered By: [facility] Xukain on 05-29-2023 Immature granulocytes/100 WBC (Bld) 0.300 % 0.0-0.9 [facility] Comment on above: IG% - Immature Granu locytes (promyelocytes, myelocytes and metamyelocytes) > 1% indicates that a LEFT SHIFT is Present. Laboratory - Chemistry and C hemistry - challengeOrdered By: Britneyturnerjacquie Titus on 05-29-2023 Albumin/Globulin [Mass ratio] 1.0 {ratio} 0.9-2.4 [facility] ALP [Catalytic activity/Vol] 73 U/L 45-117 [facility] ALT [Catalytic activity/Vol] 23 U/L 13-56 [facility] CO2 [Moles/Vol] 27.0 mmol/L 21.0-32.0 [facility] Globulin (S) [Mass/Vol] 4.0 g/dL 2.2-4.2 [facility] Urea nitrogen/Creatinine [Mass ratio] 18.1 mg/mg 10-20 [facility] Laboratory - Hematology and Cell countsOrdered By: roturnerjacquie Titus on 05-29-2023 MCH (RBC) [Entitic mass] 28.8 pg 27.0-32.0 [facility] MCHC (RBC) [Mass/Vol] 31.2 g/dL 32-36 [facility] Nucleated RBC/100 WBC (Bld) [Ratio] 0 % 0-5 [facility] Platelet mean volume (Bld) [Entitic vol] 12.2 fL 6.2-12.0 [facility] Platelets (Bld) [#/Vol] 300 10*3/uL 150-450 [facility] No Panel InformationOrdered By: Stephane Titus on 05-29-2023 Estimated GFR (MDRD) Amer 58 mL/min >60 [facility] Comment on above: GFR Calc Estimated GFR (MDRD) Non-Af Amer 48 mL/min >60 [facility] Comment on above: Non- GFR Calc RBC Auto (Bld) [#/Vol]Ordere d By: Stephane Titus on 05-29-2023 RBC (Bld) [#/Vol] 4.55 10*6/uL 4.2-5.4 [facility] Serum or plasma calcium dean urement (mass/volume)Ordered By: Stephane Titus on 05-29-2023 Calcium [Mass/Vol] 9.9 mg/dL 8.5-10.1 [facility] Serum or plasma creatinine m easurement (mass/volume)Ordered By: Stephane Titus on 05-29-2023 Creatinine [Mass/Vol] 1.16 mg/dL 0.55-1.02 [facility] Comment on above: The validity of the calculated GFR & GFRAA in patients over 70 years has not been determined. Clinical correlation is essential. Serum or plasma urea nitroge n measurement (mass/volume)Ordered By: Stephane Titus on 05-29-2023 Urea nitrogen [Mass/Vol] 21 mg/dL 7-18 [facility] Thin prep Papanicolaou smear with manual screeningOrdered By: Stephane Titus on 05-29-2023 Thin prep Papanicolaou smear with manual screening 3.9 g/dL 3.2-5.0 [facility] Thin prep Papanicolaou smear with manual screening 27 U/L 15-37 [facility] Thin prep Papanicolaou smear with manual screening 6 5-15 [facility] Basophil percentageOrdered B y: Stephane Titus on 01-28-2023 Chloride [Moles/Vol] 100 mmol/L 98-107 [facility] Glucose [Mass/Vol] 104 mg/dL 74-106 [facility] Comment on above: Fasting Glucose resu lt from 100 to 125 mg/dL suggests IMPAIRED HOMEOSTASIS per A.D.A. criteria. Potassium [Moles/Vol] 4.1 mmol/L 3.5-5.1 [facility] Sodium [Moles/Vol] 136 mmol/L 136-145 [facility] Laboratory - Chemistry and C hemistry - challengeOrdered By: Stephane Titus on 01-28-2023 CO2 [Moles/Vol] 29.0 mmol/L 21.0-32.0 [facility] Urea nitrogen/Creatinine [Mass ratio] 21.9 mg/mg 10-20 [facility] No Panel InformationOrdered By: Stephane Titus on 01-28-2023 Estimated GFR (MDRD) Amer 65 mL/min >60 [facility] Comment on above: GFR Calc Estimated GFR (MDRD) Non-Af Amer 54 mL/min >60 [facility] Comment on above: Non- GFR Calc Serum or plasma calcium dean urement (mass/volume)Ordered By: Stephane Titus on 01-28-2023 Calcium [Mass/Vol] 9.2 mg/dL 8.5-10.1 [facility] Serum or plasma creatinine m easurement (mass/volume)Ordered By: Stephane Titus on 01-28-2023 Creatinine [Mass/Vol] 1.05 mg/dL 0.55-1.02 [facility] Comment on above: The validity of the calculated GFR & GFRAA in patients over 70 years has not been determined. Clinical correlation is essential. Serum or plasma urea nitroge n measurement (mass/volume)Ordered By: Stephane Titus on 01-28-2023 Urea nitrogen [Mass/Vol] 23 mg/dL 7-18 [facility] Thin prep Papanicolaou smear with manual screeningOrdered By: Stephane Titus on 01-28-2023 Thin prep Papanicolaou smear with manual screening 7 5-15 [facility] Absolute lymphocyte countOrd ered By: Stephane Titus on 11-21-2022 Lymphocytes Auto (Unsp spec) [#/Vol] 1.82 10*3/uL 0.83-4.51 [facility] Basophil percentageOrdered B y: Stephane Titus on 11-21-2022 Basophils/100 WBC (Bld) 0.9 % 0-1 [facility] Bilirubin [Mass/Vol] 0.50 mg/dL 0.20-1.00 [facility] Comment on above: For patients on eltr ombopag therapy, use of Dimension [place] TBIL is not recommended. Chloride [Moles/Vol] 100 mmol/L 98-107 [facility] Cholesterol [Mass/Vol] 169 mg/dL <200 [facility] Comment on above: <200 mg/dL Desirable 200-240 mg/dL Borderline >240 mg/dL High Risk Eosinophils/100 WBC (Bld) 1.9 % 0-5 [facility] Glucose [Mass/Vol] 115 mg/dL 74-106 [facility] Comment on above: Fasting Glucose resu lt from 100 to 125 mg/dL suggests IMPAIRED HOMEOSTASIS per A.D.A. criteria. Neutrophils (Bld) [#/Vol] 4.5 10*3/uL 2.0-7.7 [facility] Neutrophils/100 WBC (Bld) 64.5 % 47-70 [facility] Potassium [Moles/Vol] 3.8 mmol/L 3.5-5.1 [facility] Protein [Mass/Vol] 7.5 g/dL 6.4-8.2 [facility] Sodium [Moles/Vol] 134 mmol/L 136-145 [facility] Triglyceride [Mass/Vol] 67 mg/dL <199 [facility] Comment on above: The drugs N-Acetylcy steine and Metamizole may falsely depress this assay.Serum Triglycerides Reference Interval Normal <150 mg/dL Borderline high 150 - 199 mg/dL High 200 - 499 mg/dL Very High > or = 500 mg/dL WBC (Bld) [#/Vol] 7.0 10*3/uL 4.4-11.0 [facility] Blood erythrocytes count (nu mber/volume)Ordered By: Stephane Titus on 11-21-2022 RBC (Bld) [#/Vol] 4.58 10*6/uL 4.2-5.4 [facility] Blood hemoglobin measurement (mass/volume)Ordered By: Stephane Titus on 11-21-2022 Hemoglobin (Bld) [Mass/Vol] 13.1 g/dL 12.0-15.0 [facility] Blood lymphocytes/100 leukoc ytesOrdered By: [facility] on 11-21-2022 Lymphocytes/100 WBC (Bld) 26.1 % 19-41 [facility] Blood monocytes/100 leukocyt esOrdered By: [facility] on 11-21-2022 Monocytes/100 WBC (Bld) 6.0 % 0-10 [facility] Blood platelet mean volumeOr dered By: Stephane Titus on 11-21-2022 Platelet mean volume (Bld) [Entitic vol] 12.3 fL 6.2-12.0 [facility] Determination of erythrocyte mean corpuscular volume (MCV)Ordered By: Stephane Titus on 11-21-2022 MCV (RBC) [Entitic vol] 91.9 fL 81-99 [facility] Hematocrit Auto (Bld) [Volum e fraction]Ordered By: Stephane Titus on 11-21-2022 Hematocrit (Bld) [Volume fraction] 42.1 % 37-47 [facility] Laboratory - Chemistry and C hemistry - challengeOrdered By: Stephane Titus on 11-21-2022 ALP [Catalytic activity/Vol] 79 U/L 45-117 [facility] ALT [Catalytic activity/Vol] 28 U/L 13-56 [facility] CO2 [Moles/Vol] 28.0 mmol/L 21.0-32.0 [facility] Globulin (S) [Mass/Vol] 3.5 g/dL 2.2-4.2 [facility] Urea nitrogen/Creatinine [Mass ratio] 16.1 mg/mg 10-20 [facility] Laboratory - Hematology and Cell countsOrdered By: Stephane Titus on 11-21-2022 Erythrocyte distribution width (RBC) [Entitic vol] 42.1 fL 35.1-43.9 [facility] Erythrocyte distribution width (RBC) [Ratio] 12.4 % 11.6-14.6 [facility] Immature granulocytes/100 WBC (Bld) 0.600 % 0.0-0.9 [facility] Comment on above: IG% - Immature Granu locytes (promyelocytes, myelocytes and metamyelocytes) > 1% indicates that a LEFT SHIFT is Present. MCH (RBC) [Entitic mass] 28.6 pg 27.0-32.0 [facility] Nucleated RBC/100 WBC (Bld) [Ratio] 0 % 0-5 [facility] MCHC Auto (RBC) [Mass/Vol]Or dered By: Stephane Titus on 11-21-2022 MCHC (RBC) [Mass/Vol] 31.1 g/dL 32-36 [facility] No Panel InformationOrdered By: Stephane Titus on 11-21-2022 Estimated GFR (MDRD) Amer 60 mL/min >60 [facility] Comment on above: GFR Calc Estimated GFR (MDRD) Non-Af Amer 50 mL/min >60 [facility] Comment on above: Non- GFR Calc Platelets bldOrdered By: Cristino Titus on 11-21-2022 Platelets (Bld) [#/Vol] 292 10*3/uL 150-450 [facility] Serum or plasma albumin dean urement (mass/volume)Ordered By: Stephane Titus on 11-21-2022 Albumin [Mass/Vol] 4.0 g/dL 3.2-5.0 [facility] Serum or plasma albumin/glob ulin mass ratioOrdered By: Stephane Titus on 11-21-2022 Albumin/Globulin [Mass ratio] 1.1 {ratio} 0.9-2.4 [facility] Serum or plasma calcium dean urement (mass/volume)Ordered By: Stephane Titus on 11-21-2022 Calcium [Mass/Vol] 9.3 mg/dL 8.5-10.1 [facility] Serum or plasma cholesterol in HDL measurement (mass/volume)Ordered By: Stephane Titus on 11-21-2022 Cholesterol in HDL [Mass/Vol] 72 mg/dL >40 [facility] Comment on above: The drugs N-Acetylcy steine and Metamizole may falsely depress this assay. Reference Range HDL <40 mg/dL Low HDL Cholesterol HDL >or= 60 mg/dL High HDL Cholesterol Serum or plasma cholesterol in VLDL measurement (mass/volume)Ordered By: Stephane Titus on 11-21-2022 Cholesterol in VLDL [Mass/Vol] 13 mg/dL 5-40 [facility] Serum or plasma creatinine m easurement (mass/volume)Ordered By: Stephane Titus on 11-21-2022 Creatinine [Mass/Vol] 1.12 mg/dL 0.55-1.02 [facility] Comment on above: The validity of the calculated GFR & GFRAA in patients over 70 years has not been determined. Clinical correlation is essential. Serum or plasma low density lipoprotein (LDL) cholesterol measurement (mass/volume)Ordered By: Stephane Titus on 11-21-2022 Cholesterol in LDL [Mass/Vol] 84 mg/dL 0-130 [facility] Serum or plasma urea nitroge n measurement (mass/volume)Ordered By: Stephane Titus on 11-21-2022 Urea nitrogen [Mass/Vol] 18 mg/dL 7-18 [facility] Thin prep Papanicolaou smear with manual screeningOrdered By: Stephane Titus on 11-21-2022 Thin prep Papanicolaou smear with manual screening 24 U/L 15-37 [facility] Thin prep Papanicolaou smear with manual screening 6 5-15 [facility] Basophil percentageOrdered B y: Dr. Titus on 07-09-2022 Chloride [Moles/Vol] 94 mmol/L 98-107 [facility] Glucose [Mass/Vol] 105 mg/dL 74-106 [facility] Comment on above: Fasting Glucose resu lt from 100 to 125 mg/dL suggests IMPAIRED HOMEOSTASIS per A.D.A. criteria. Potassium [Moles/Vol] 4.0 mmol/L 3.5-5.1 [facility] Sodium [Moles/Vol] 131 mmol/L 136-145 [facility] Laboratory - Chemistry and C hemistry - challengeOrdered By: Dr. Titus on 07-09-2022 CO2 [Moles/Vol] 28.0 mmol/L 21.0-32.0 [facility] Free T4 [Mass/Vol] 1.03 ng/dL 0.76-1.46 [facility] Urea nitrogen/Creatinine [Mass ratio] 21.2 mg/mg 10-20 [facility] No Panel InformationOrdered By: Dr. Titus on 07-09-2022 Estimated GFR (MDRD) Amer 73 mL/min >60 [facility] Comment on above: GFR Calc Estimated GFR (MDRD) Non-Af Amer 61 mL/min >60 [facility] Comment on above: Non- GFR Calc Thyroid Stimulating Hormone (TSH) 1.73 uIU/mL 0.358-3.74 [facility] Serum or plasma calcium dean urement (mass/volume)Ordered By: Dr. Titus on 07-09-2022 Calcium [Mass/Vol] 9.6 mg/dL 8.5-10.1 [facility] Serum or plasma creatinine m easurement (mass/volume)Ordered By: Dr. Titus on 07-09-2022 Creatinine [Mass/Vol] 0.94 mg/dL 0.55-1.02 [facility] Comment on above: The validity of the calculated GFR & GFRAA in patients over 70 years has not been determined. Clinical correlation is essential. Serum or plasma urea nitroge n measurement (mass/volume)Ordered By: Dr. Titus on 07-09-2022 Urea nitrogen [Mass/Vol] 20 mg/dL 7-18 [facility] Thin prep Papanicolaou smear with manual screeningOrdered By: Dr. Titus on 07-09-2022 Thin prep Papanicolaou smear with manual screening 9 -15 [facility] Absolute lymphocyte counton 01-10-2022 Lymphocytes Auto (Unsp spec) [#/Vol] 1.69 10*3/uL 0.83-4.51 [facility] Work Phone: Basophil percentageon 2021 Basophils/100 WBC (Bld) 0.6 % 0-1 [facility] Work Phone: Bilirubin [Mass/Vol] 0.50 mg/dL 0.20-1.00 [facility] Work Phone: Comment on above: For patients on eltr ombopag therapy, use of Dimension [place] TBIL is not recommended. Chloride [Moles/Vol] 101 mmol/L 98-107 [facility] Work Phone: Cholesterol [Mass/Vol] 176 mg/dL <200 [facility] Work Phone: Comment on above: <200 mg/dL Desirable 200-240 mg/dL Borderline >240 mg/dL High Risk Eosinophils/100 WBC (Bld) 2.2 % 0-5 [facility] Work Phone: Glucose [Mass/Vol] 81 mg/dL 74-106 [facility] Work Phone: Neutrophils (Bld) [#/Vol] 4.3 10*3/uL 2.0-7.7 [facility] Work Phone: Neutrophils/100 WBC (Bld) 64.1 % 47-70 [facility] Work Phone: Potassium [Moles/Vol] 4.3 mmol/L 3.5-5.1 [facility] Work Phone: Protein [Mass/Vol] 6.9 g/dL 6.4-8.2 [facility] Work Phone: Sodium [Moles/Vol] 137 mmol/L 136-145 [facility] Work Phone: Triglyceride [Mass/Vol] 82 mg/dL <199 [facility] Work Phone: Comment on above: The drugs N-Acetylcy steine and Metamizole may falsely depress this assay.Serum Triglycerides Reference Interval Normal <150 mg/dL Borderline high 150 - 199 mg/dL High 200 - 499 mg/dL Very High > or = 500 mg/dL WBC (Bld) [#/Vol] 6.7 10*3/uL 4.4-11.0 [facility]: Blood erythrocytes count (nu mber/volume)on 01-10-2022 RBC (Bld) [#/Vol] 4.41 10*6/uL 4.2-5.[address] [facility]: Blood hemoglobin measurement (mass/volume)on 01-10-2022 Hemoglobin (Bld) [Mass/Vol] 13.0 g/dL 12.0-15.0 [facility] Work Phone: [phone] Blood lymphocytes/100 leukoc yteson 01-10-2022 Lymphocytes/100 WBC (Bld) 25.1 % 19-41 [facility] Work Phone: [phone] Blood monocytes/100 leukocyt eson 01-10-2022 Monocytes/100 WBC (Bld) 7.7 % 0-10 [facility] Work Phone: [phone] Blood platelet mean volumeon 01-10-2022 Platelet mean volume (Bld) [Entitic vol] 12.0 fL 6.2-12.0 [facility] Work Phone: [phone] Determination of erythrocyte mean corpuscular volume (MCV)on 01-10-2022 MCV (RBC) [Entitic vol] 89.3 fL 81-99 [facility] Work Phone: [phone] Hematocrit Auto (Bld) [Volum e fraction]on 01-10-2022 Hematocrit (Bld) [Volume fraction] 39.4 % 37-47 [facility] Work Phone: Laboratory - Chemistry and C hemistry - challengeon 01-10-2022 ALP [Catalytic activity/Vol] 67 U/L 45-117 [facility] Work Phone: [phone] ALT [Catalytic activity/Vol] 19 U/L 13-56 [facility] Work Phone: [phone] CO2 [Moles/Vol] 31.0 mmol/L 21.0-32.0 [facility] Work Phone: [phone] Globulin (S) [Mass/Vol] 3.2 g/dL 2.2-4.2 [facility] Work Phone: [phone] Urea nitrogen/Creatinine [Mass ratio] 20.8 mg/mg 10-20 [facility] Work Phone: [phone] Laboratory - Hematology and Cell countson 01-10-2022 Erythrocyte distribution width (RBC) [Entitic vol] 42.8 fL 35.1-43.9 [facility] Work Phone: [phone] Erythrocyte distribution width (RBC) [Ratio] 13.0 % 11.6-14.6 [facility] Work Phone: [phone] Immature granulocytes/100 WBC (Bld) 0.300 % 0.0-0.9 [facility] Work Phone: [phone] Comment on above: IG% - Immature Granu locytes (promyelocytes, myelocytes and metamyelocytes) > 1% indicates that a LEFT SHIFT is Present. MCH (RBC) [Entitic mass] 29.5 pg 27.0-32.0 [facility] Work Phone: [phone] Nucleated RBC/100 WBC (Bld) [Ratio] 0 % 0-5 [facility] Work Phone: [phone] MCHC Auto (RBC) [Mass/Vol]on 01-10-2022 MCHC (RBC) [Mass/Vol] 33.0 g/dL 32-36 [facility] Work Phone: [phone] Panel Informationon 01-10 Estimated GFR (MDRD) Amer 64 mL/min >60 [facility] Work Phone: [phone] Comment on above: GFR Calc Estimated GFR (MDRD) Non-Af Amer 53 mL/min >60 [facility] Work Phone: [phone] Comment on above: Non- GFR Calc Platelets bldon 01-10-2022 Platelets (Bld) [#/Vol] 247 10*3/uL 150-450 [facility] Work Phone: [phone] Serum or plasma albumin dean urement (mass/volume)on 01-10-2022 Albumin [Mass/Vol] 3.7 g/dL 3.2-5.0 [facility] Work Phone: Serum or plasma albumin/glob ulin mass ratioon 01-10-2022 Albumin/Globulin [Mass ratio] 1.2 {ratio} 0.9-2.4 [facility] Work Phone: Serum or plasma calcium dean urement (mass/volume)on 01-10-2022 Calcium [Mass/Vol] 9.8 mg/dL 8.5-10.1 [facility] Work Phone: Serum or plasma cholesterol in HDL measurement (mass/volume)on 01-10-2022 Cholesterol in HDL [Mass/Vol] 70 mg/dL >40 [facility] Work Phone: Comment on above: The drugs N-Acetylcy steine and Metamizole may falsely depress this assay. Reference Range HDL <40 mg/dL Low HDL Cholesterol HDL >or= 60 mg/dL High HDL Cholesterol Serum or plasma cholesterol in VLDL measurement (mass/volume)on 01-10-2022 Cholesterol in VLDL [Mass/Vol] 16 mg/dL 5-40 [facility] Work Phone: [phone] Serum or plasma creatinine m easurement (mass/volume)on 01-10-2022 Creatinine [Mass/Vol] 1.06 mg/dL 0.55-1.02 [facility] Work Phone: Comment on above: The validity of the calculated GFR & GFRAA in patients over 70 years has not been determined. Clinical correlation is essential. Serum or plasma low density lipoprotein (LDL) cholesterol measurement (mass/volume)on 01-10-2022 Cholesterol in LDL [Mass/Vol] 90 mg/dL 0-130 [facility] Work Phone: Serum or plasma urea nitroge n measurement (mass/volume)on 01-10-2022 Urea nitrogen [Mass/Vol] 22 mg/dL 7-18 [facility] Work Phone: Thin prep Papanicolaou smear with manual screeningon 01-10-2022 Thin prep Papanicolaou smear with manual screening 19 U/L 15-37 [facility] Work Phone: Thin prep Papanicolaou smear with manual screening 5 5-15 [facility] Work Phone: Basophil percentageon 2021 Chloride [Moles/Vol] 100 mmol/L 98-107 [facility] Work Phone: Glucose [Mass/Vol] 79 mg/dL 74-106 [facility] Work Phone: Potassium [Moles/Vol] 3.9 mmol/L 3.5-5.1 [facility] Work Phone: Sodium [Moles/Vol] 135 mmol/L 136-145 [facility] Work Phone: Laboratory - Chemistry and C hemistry - challengeon 07-03-2021 CO2 [Moles/Vol] 30.0 mmol/L 21.0-32.0 [facility] Work Phone: Urea nitrogen/Creatinine [Mass ratio] 17.3 mg/mg 10-20 [facility] Work Phone: No Panel Informationon 07-03 Estimated GFR (MDRD) Amer 66 mL/min >60 [facility] Work Phone: Comment on above: GFR Calc Estimated GFR (MDRD) Non-Af Amer 54 mL/min >60 [facility] Work Phone: Comment on above: Non- GFR Calc Serum or plasma calcium dean urement (mass/volume)on 07-03-2021 Calcium [Mass/Vol] 9.7 mg/dL 8.5-10.1 [facility] Work Phone: Serum or plasma creatinine m easurement (mass/volume)on 07-03-2021 Creatinine [Mass/Vol] 1.04 mg/dL 0.55-1.02 [facility] Work Phone: Comment on above: The validity of the calculated GFR & GFRAA in patients over 70 years has not been determined. Clinical correlation is essential. Serum or plasma urea nitroge n measurement (mass/volume)on 07-03-2021 Urea nitrogen [Mass/Vol] 18 mg/dL 7-18 [facility] Work Phone: Thin prep Papanicolaou smear with manual screeningon 07-03-2021 Thin prep Papanicolaou smear with manual screening 06 22-15 [facility] Work Phone: Vital Signs Date Time Vital Sign Value Performing Clinician Real campbell 09-02-2024 13:02-0400 Body height 152.[address] Stephane Titus MD Work Phone: [facility] 09-02-2024 13:02-0400 Body mass index (BMI) [Ratio] 33 kg/m2 Dr. Stephane Titus MD Work Phone: [facility] 09-02-2024 13:02-0400 Body temperature 96.4 [degF] Dr. Stephane Titus MD Work Phone: [facility] 09-02-2024 13:02-0400 Body weight 76.[address] Stephane Titus MD Work Phone: [facility] 09-02-2024 13:02-0400 Diastolic blood pressure 70 mm[Hg] Dr. Stephane Titus MD Work Phone: [facility] 09-02-2024 13:02-0400 Heart rate 16 /min Dr. Stephane Titus MD Work Phone: [facility] 09-02-2024 13:02-0400 Respiratory rate 16 /min Dr. Stephane Titus MD Work Phone: [facility] 09-02-2024 13:02-0400 SaO2% (BldA) [Mass fraction] 98 % Dr. Stephane Titus MD Work Phone: [facility] 09-02-2024 13:02-0400 Systolic blood pressure 132 mm[Hg] Dr. Stephane Titus MD Work Phone: [facility] 06-03-2024 14:14-0400 Body height 152.[address] Stephane Titus MD Work Phone: [facility] 06-03-2024 14:14-0400 Body mass index (BMI) [Ratio] 32.4 kg/m2 Dr. Stephane Titus MD Work Phone: [facility] 06-03-2024 14:14-0400 Body temperature 97.5 [degF] Dr. Stephane Titus MD Work Phone: [facility] 06-03-2024 14:14-0400 Body weight 75.[address] Stephane Titus MD Work Phone: [facility] 06-03-2024 14:14-0400 Diastolic blood pressure 68 mm[Hg] Dr. Stephane Titus MD Work Phone: [facility] 06-03-2024 14:14-0400 Heart rate 50 /min Dr. Stephane Titus MD Work Phone: [facility] 06-03-2024 14:14-0400 Respiratory rate 18 /min Dr. Stephane Titus MD Work Phone: [facility] 06-03-2024 14:14-0400 SaO2% (BldA) [Mass fraction] 96 % Dr. Stephane Titus MD Work Phone: [facility] 06-03-2024 14:14-0400 Systolic blood pressure 132 mm[Hg] Dr. Stephane Titus MD Work Phone: [facility] 06-13-2023 14:35-0400 Body height 152.[address] Stephane Titus Work Phone: [facility] 06-13-2023 14:35-0400 Body mass index (BMI) [Ratio] 31 kg/m2 Dr. Stephane Titus Work Phone: [facility] 06-13-2023 14:35-0400 Body temperature 97.5 [degF] Dr. Stephane Titus Work Phone: [facility] 06-13-2023 14:35-0400 Body weight 72.[address] Stephane Titus Work Phone: [facility] 06-13-2023 14:35-0400 Diastolic blood pressure 58 mm[Hg] Dr. Stephane Titus Work Phone: [facility] 06-13-2023 14:35-0400 Heart rate 70 /min Dr. Stephane Titus Work Phone: [facility] 06-13-2023 14:35-0400 Respiratory rate 17 /min Dr. Stephane Titus Work Phone: [facility] 06-13-2023 14:35-0400 SaO2% (BldA) [Mass fraction] 97 % Dr. Stephane Titus Work Phone: [facility] 06-13-2023 14:35-0400 Systolic blood pressure 122 mm[Hg] Dr. Stephane Titus Work Phone: [facility] 05-29-2023 08:55-0400 Body height 152.[address] Stephane Titus Work Phone: [facility] 05-29-2023 08:55-0400 Body mass index (BMI) [Ratio] 31.3 kg/m2 Dr. Stephane Titus Work Phone: [facility] 05-29-2023 08:55-0400 Body temperature 97.6 [degF] Dr. Stephane Titus Work Phone: [facility] 05-29-2023 08:55-0400 Body weight 72.[address] Stephane Titus Work Phone: [facility] 05-29-2023 08:55-0400 Diastolic blood pressure 82 mm[Hg] Dr. Stephane Titus Work Phone: [facility] 05-29-2023 08:55-0400 Heart rate 64 /min Dr. Stephane Titus Work Phone: [facility] 05-29-2023 08:55-0400 Respiratory rate 16 /min Dr. Stephane Titus Work Phone: [facility] 05-29-2023 08:55-0400 SaO2% (BldA) [Mass fraction] 97 % Dr. Stephane Titus Work Phone: [facility] 05-29-2023 08:55-0400 Systolic blood pressure 124 mm[Hg] Dr. Stephane Titus Work Phone: [facility] 01-28-2023 13:32-0500 Body height 152.[address] Stephane Titus Work Phone: [facility] 01-28-2023 13:32-0500 Body mass index (BMI) [Ratio] 31.7 kg/m2 Dr. Stephane Titus Work Phone: [facility] 01-28-2023 13:32-0500 Body temperature 97.8 [degF] Dr. Stephane Titus Work Phone: [facility] 01-28-2023 13:32-0500 Body weight 73.[address] Stephane Titus Work Phone: [facility] 01-28-2023 13:32-0500 Diastolic blood pressure 84 mm[Hg] Dr. Stephane Titus Work Phone: [facility] 01-28-2023 13:32-0500 Heart rate 70 /min Dr. Stephane Titus Work Phone: [facility] 01-28-2023 13:32-0500 Respiratory rate 16 /min Dr. Stephane Titus Work Phone: [facility] 01-28-2023 13:32-0500 SaO2% (BldA) [Mass fraction] 97 % Dr. Stephane Titus Work Phone: [facility] 01-28-2023 13:32-0500 Systolic blood pressure 136 mm[Hg] Dr. Stephane Titus Work Phone: [facility] 11-21-2022 09:48-0400 Diastolic blood pressure 75 mm[Hg] Dr. Stephane Titus Work Phone: [facility] 11-21-2022 09:48-0400 Systolic blood pressure 145 mm[Hg] Dr. Stephane Titus Work Phone: [facility] 11-21-2022 09:41-0400 Body mass index (BMI) [Ratio] 31.4 kg/m2 Dr. Stephane Titus Work Phone: [facility] 11-21-2022 09:41-0400 Body temperature 95.6 [degF] Dr. Stephane Titus Work Phone: [facility] 11-21-2022 09:41-0400 Body weight 73.[address] Stephane Titus Work Phone: [facility] 11-21-2022 09:41-0400 Heart rate 68 /min Dr. Stephane Titus Work Phone: [facility] 11-21-2022 09:41-0400 Respiratory rate 18 /min Dr. Stephane Titus Work Phone: [facility] 11-21-2022 09:41-0400 SaO2% (BldA) [Mass fraction] 95 % Dr. Stephane Titus Work Phone: [facility] 10-10-2022 14:03-0400 Body height 152.[address] Stephane Titus Work Phone: [facility] 10-10-2022 14:03-0400 Body mass index (BMI) [Ratio] 32 kg/m2 Dr. Stephane Titus Work Phone: [facility] 10-10-2022 14:03-0400 Body temperature 98.3 [degF] Dr. Stephane Titus Work Phone: [facility] 10-10-2022 14:03-0400 Body weight 74.[address] Stephane Titus Work Phone: [facility] 10-10-2022 14:03-0400 Diastolic blood pressure 82 mm[Hg] Dr. Stephane Titus Work Phone: [facility] 10-10-2022 14:03-0400 Heart rate 66 /min Dr. Stephane Titus Work Phone: [facility] 10-10-2022 14:03-0400 Respiratory rate 16 /min Dr. Stephane Titus Work Phone: [facility] 10-10-2022 14:03-0400 SaO2% (BldA) [Mass fraction] 99 % Dr. Stephane Titus Work Phone: [facility] 10-10-2022 14:03-0400 Systolic blood pressure 184 mm[Hg] Dr. Stephane Titus Work Phone: [facility] 09-17-2022 08:35-0400 Body mass index (BMI) [Ratio] 29.2 kg/m2 Dr. Stephane Titus Work Phone: [facility] 09-17-2022 08:35-0400 Body temperature 98.6 [degF] Dr. Stephane Titus Work Phone: [facility] 09-17-2022 08:35-0400 Body weight 68.[address] Stephane Titus Work Phone: [facility] 09-17-2022 08:35-0400 Diastolic blood pressure 86 mm[Hg] Dr. Stephane Titus Work Phone: [facility] 09-17-2022 08:35-0400 Heart rate 86 /min Dr. Stephane Titus Work Phone: [facility] 09-17-2022 08:35-0400 Respiratory rate 16 /min Dr. Stephane Titus Work Phone: [facility] 09-17-2022 08:35-0400 SaO2% (BldA) [Mass fraction] 96 % Dr. Stephane Titus Work Phone: [facility] 09-17-2022 08:35-0400 Systolic blood pressure 128 mm[Hg] Dr. Stephane Titus Work Phone: [facility] 08-06-2022 12:17-0400 Body height 154.[address] Stephane Titus Work Phone: [facility] 08-06-2022 12:17-0400 Body mass index (BMI) [Ratio] 30.4 kg/m2 Dr. Stephane Titus Work Phone: [facility] 08-06-2022 12:17-0400 Body temperature 97.4 [degF] Dr. Stephane Titus Work Phone: [facility] 08-06-2022 12:17-0400 Body weight 73.[address] Stephane Titus Work Phone: [facility] 08-06-2022 12:17-0400 Diastolic blood pressure 103 mm[Hg] Dr. Stephane Titus Work Phone: [facility] 08-06-2022 12:17-0400 Heart rate 66 /min Dr. Stephane Titus Work Phone: [facility] 08-06-2022 12:17-0400 Respiratory rate 16 /min Dr. Stephane Titus Work Phone: [facility] 08-06-2022 12:17-0400 SaO2% (BldA) [Mass fraction] 98 % Dr. Stephane Titus Work Phone: [facility] 08-06-2022 12:17-0400 Systolic blood pressure 181 mm[Hg] Dr. Stephane Titus Work Phone: [facility] 07-09-2022 14:34-0400 Body height 152.[address] Stephane Titus Work Phone: [facility] 07-09-2022 14:34-0400 Body mass index (BMI) [Ratio] 31 kg/m2 Dr. Stephane Titus Work Phone: [facility] 07-09-2022 14:34-0400 Body temperature 98.5 [degF] Dr. Stephane Titus Work Phone: [facility] 07-09-2022 14:34-0400 Body weight 72.[address] Stephane Titus Work Phone: [facility] 07-09-2022 14:34-0400 Diastolic blood pressure 86 mm[Hg] Dr. Stephane Titus Work Phone: [facility] 07-09-2022 14:34-0400 Heart rate 73 /min Dr. Stephane Titus Work Phone: [facility] 07-09-2022 14:34-0400 Respiratory rate 14 /min Dr. Stephane Titus Work Phone: [facility] 07-09-2022 14:34-0400 SaO2% (BldA) [Mass fraction] 98 % Dr. Stephane Titus Work Phone: [facility] 07-09-2022 14:34-0400 Systolic blood pressure 144 mm[Hg] Dr. Stephane Titus Work Phone: [facility] 06-21-2022 08:58-0400 Body mass index (BMI) [Ratio] 30.8 kg/m2 Dr. Stehpane Titus Work Phone: [facility] 06-21-2022 08:58-0400 Body weight 71.[address] Stephane Titus Work Phone: [facility] 01-10-2022 11:01-0500 Body height 152.[address] Stephane Titus Work Phone: [facility] Work Phone: 01-10-2022 11:01-0500 Body mass index (BMI) [Ratio] 31 kg/m2 Dr. Stephane Titus Work Phone: [facility] Work Phone: 01-10-2022 11:01-0500 Body temperature 96.8 [degF] Dr. Stephane Titus Work Phone: [facility] Work Phone: 01-10-2022 11:01-0500 Body weight 72.[address] Stephane Titus Work Phone: [facility] Work Phone: 01-10-2022 11:01-0500 Diastolic blood pressure 80 mm[Hg] Dr. Stephane Titus Work Phone: [facility] Work Phone: 01-10-2022 11:01-0500 Heart rate 65 /min Dr. Stephane Titus Work Phone: [facility] Work Phone: 01-10-2022 11:01-0500 Respiratory rate 16 /min Dr. Stephane Titus Work Phone: [facility] Work Phone: 01-10-2022 11:01-0500 SaO2% (BldA) [Mass fraction] 99 % Dr. Stephane Titus Work Phone: [facility] Work Phone: 01-10-2022 11:01-0500 Systolic blood pressure 136 mm[Hg] Dr. Stephane Titus Work Phone: [facility] Work Phone: 10-04-2021 10:36-0400 Diastolic blood pressure 82 mm[Hg] Dr. Stephane Titus Work Phone: [facility] Work Phone: 10-04-2021 10:36-0400 Heart rate 65 /min Dr. Stephane Titus Work Phone: [facility] Work Phone: 10-04-2021 10:36-0400 Respiratory rate 16 /min Dr. Stephane Titus Work Phone: [facility] Work Phone: 10-04-2021 10:36-0400 Systolic blood pressure 158 mm[Hg] Dr. Stephane Titus Work Phone: [facility] Work Phone: 10-04-2021 10:32-0400 Body mass index (BMI) [Ratio] 31 kg/m2 Dr. Stephane Titus Work Phone: [facility] Work Phone: 10-04-2021 10:32-0400 Body temperature 97.4 [degF] Dr. Stephane Titus Work Phone: [facility] Work Phone: 10-04-2021 10:32-0400 Body weight 72.[address] Stephane Titus Work Phone: [facility] Work Phone: 10-04-2021 10:32-0400 SaO2% (BldA) [Mass fraction] 96 % Dr. Stephane Titus Work Phone: [facility] Work Phone: 07-03-2021 09:52-0400 Body height 152.[address] Tian Rivas Work Phone: [facility] Work Phone: 07-03-2021 09:52-0400 Body mass index (BMI) [Ratio] 30.4 kg/m2 Dr. Tian Rivas Work Phone: [facility] Work Phone: 07-03-2021 09:52-0400 Body temperature 96.7 [degF] Dr. Tian Rivas Work Phone: [facility] Work Phone: 07-03-2021 09:52-0400 Body weight 70.[address] Tian Rivas Work Phone: [facility] Work Phone: 07-03-2021 09:52-0400 Diastolic blood pressure 72 mm[Hg] Dr. Tian Rivas Work Phone: [facility] Work Phone: 07-03-2021 09:52-0400 Heart rate 67 /min Dr. Tian Rivas Work Phone: [facility] Work Phone: 07-03-2021 09:52-0400 Respiratory rate 16 /min Dr. Tian Rivas Work Phone: [facility] Work Phone: 07-03-2021 09:52-0400 SaO2% (BldA) [Mass fraction] 94 % Dr. Tian Rivas Work Phone: [facility] Work Phone: 07-03-2021 09:52-0400 Systolic blood pressure 132 mm[Hg] Dr. Tian Rivas Work Phone: [facility] Work Phone: Encounters Encounter Date Encounter Type Care Provider Facility [facility]: [facility] Start: 09-02-2024 End: 09-02-[address] Stephane Titus MD Work Phone: -[facility] [place] Start: 09-02-2024 End: 09-02-[address] Stephane Titus MD -[facility] [place] Work Phone: Start: 09-02-2024 End: 09-02-[address] Stephane Titus MD -[facility] Work Phone: Start: 09-02-2024 End: 09-02-[address] Stephane Titus MD Work Phone: -[place] Start: 09-02-2024 End: 09-02-2024 [facility] Start: 06-10-2024 End: 06-10-[address] Stephane Titus MD Work Phone: [facility] Work Phone: Start: 06-10-2024 End: 06-10-[address] Danie Harris [facility] -Laboratory Work Phone: Start: 06-10-2024 End: 06-10-2024 ambulatory [facility] Facility:[facility] Start: 06-03-2024 End: 06-03-[address] Stephane Titus MD -Laboratory, [place] Start: 06-03-2024 End: 06-03-[address] Stephane Titus MD -[facility] Work Phone: Start: 06-03-2024 End: 06-03-2024 ambulatory [facility] Facility:[facility] Start: 06-03-2024 End: 06-03-2024 ambulatory [facility] Facility:[facility] Start: 12-03-2023 End: 12-03-2023 ambulatory Stephane Tameze Facility:[facility] Start: 11-29-2023 End: 11-29-[facility] Start: 11-29-2023 End: 11-29-[facility] Start: 11-12-2023 End: 11-12-2023 ambulatory [facility] Facility:[facility] Start: 06-24-2023 End: 06-24-[address] Stephane Titus Work Phone: [facility] Work Phone: Start: 06-24-2023 End: 06-24-[address] [facility] [place] Work Phone: Start: 06-14-2023 End: 06-14-[address] Stephane Titus Work Phone: [facility] Work Phone: Start: 06-14-2023 End: 06-14-[address] [facility] Work Phone: Start: 06-13-2023 End: 06-13-[address] Stephane Titus Work Phone: [facility] Work Phone: Start: 06-13-2023 Non-patient / Non-visit Dr. Renae Titus Work Phone: [facility] Start: 06-13-2023 End: 06-13-[address] Stephane Titus Work Phone: [facility] Work Phone: Start: 06-12-2023 End: 06-12-[address] [facility] [facility] Work Phone: Start: 06-12-2023 End: 06-12-[address] Stephane Titus Work Phone: [facility]-Cat Scan, [facility] Work Phone: Start: 06-11-2023 End: 06-11-[address] Stephane Titus Work Phone: [facility] Work Phone: Start: 06-11-2023 End: 06-11-[address] Stephane Titus Work Phone: [facility]-Laboratory, Specimen Work Phone: Start: 05-29-2023 End: 05-29-[address] Stephane Titus Work Phone: [facility] Work Phone: Start: 05-29-2023 End: 05-29-[address] Stephane Titus Work Phone: [facility] [place] [facility] Work Phone: Start: 01-28-2023 End: 01-28-[address] Stephane Titus Work Phone: [facility] Work Phone: Start: 01-28-2023 End: 01-28-2023 Encounter for general adult medical examination without abnormal findings Dr. Stephane Titus Work Phone: [facility] Start: 01-28-2023 End: 01-28-[address] Stephane Titus Work Phone: [facility] [place] [facility] Work Phone: Start: 11-21-2022 End: 11-21-2022 Encounter for general adult medical examination without abnormal findings Dr. Stephane Titus Work Phone: [facility] Start: 11-21-2022 End: 11-21-[address] Stephane Titus Work Phone: [facility] [place] [facility] Work Phone: Start: 10-17-2022 End: 10-17-[address] Stephane Titus Work Phone: [facility] Work Phone: Start: 10-17-2022 End: 10-17-[address] Stephane Titus Work Phone: [facility]-Outpatient Breast Imaging Work Phone: Start: 10-10-2022 End: 10-10-[address] Stephane Titus Work Phone: [facility] [place] [facility] Work Phone: Start: 09-17-2022 End: 09-17-[address] Stephane Titus Work Phone: [facility] Work Phone: Start: 09-10-2022 End: 09-10-[address] Stephane Titus Work Phone: [facility] [place] [facility] Work Phone: Start: 08-06-2022 End: 08-06-2022 Emergency department patient visit Dr. Stephane Titus Work Phone: [facility]-Emergency Department Start: 07-11-2022 End: 07-11-[address] Stephane Titus Work Phone: [facility] Start: 07-09-2022 End: 07-09-[address] Stephane Titus Work Phone: [facility] Work Phone: Start: 07-09-2022 End: 07-09-[address] Stephane Titus Work Phone: [facility] Start: 07-05-2022 End: 07-05-[address] Stephane Titus Work Phone: [facility] Start: 06-21-2022 End: 06-21-[address] Stephane Titus Work Phone: [facility] Start: 01-10-[address] Stephane Titus Work Phone: [facility] Start: 01-10-2022 End: 01-10-[address] Stephane Titus Work Phone: [facility] Work Phone: Start: 01-10-2022 End: 01-10-2022 Encounter for general adult medical examination without abnormal findings Dr. Stephane Titus Work Phone: [facility] Start: 01-10-2022 End: 01-10-[address] Stephane Titus Work Phone: [facility] Start: 10-16-2021 End: 10-16-[address] Stephane Titus Work Phone: [facility]-Outpatient Breast Imaging Start: 10-04-2021 End: 10-04-[address] Stephane Titus Work Phone: [facility] Start: 07-03-2021 End: 07-03-[address] Tian Rivas Work Phone: [facility] Procedures Date Procedure Procedure Detail Performing Clinician Start: 09-02-2024 X-ray of lumbar spin e, two or three views Dr. Stephane Titus MD Work Phone: Start: 06-10-[address] Cristino iTtus MD Work Phone: Comment on above: Performed at: [address] [id number] Director: Arjun Wilson PhD, Phone: [phone] Start: 06-10-2024 Antibody to MORA-[address] Stephane Titus MD Work Phone: Comment on above: Test not performed Start: 06-10-2024 Antibody to SS-A measurement Dr. Stephane Titus MD Work Phone: Comment on above: Test not performed Start: 06-03-2024 X-ray of lumbosacral spine Dr. Stephane Titus MD Work Phone: Start: 06-14-[address] Stephane Titus Work Phone: Start: 06-14-2023 Measurement of occul t blood in stool specimen using immunoassay Dr. Stephane Titus Work Phone: Start: 06-14-[address] Stephane Titus Work Phone: Start: 06-12-2023 Computed tomography of abdomen and pelvis with contrast Dr. Stephane Titus Work Phone: Start: 06-11-2023 Cl[address]ium diff[address] e detection Dr. Stephane Titus Work Phone: Start: 10-17-2022 Screening mammography Raúl Titus Work Phone: Start: 09-10-[address] Stephane Titus Work Phone: Start: 09-10-[address] Niesha Titus Work Phone: Start: 08-06-2022 CT of head without contrast Dr. Stephane Titus Work Phone: Start: 07-05-2022 MRI of upper limb Dr. Kain Titus Work Phone: Start: 06-21-2022 Plain X-ray of shoulder Dr. Stephane Titus Work Phone: Start: 10-16-2021 Screening mammography D ina Titus Work Phone: H/O: tubal ligation History of t ubal ligation Dr. Tian Rivas Work Phone: History of cataract extraction Hx of cataract extraction Dr. Tian Rivas Work Phone: History of tonsillectomy History of tonsillectomy Dr. Tian Rivas Work Phone: Plan of Treatment Date Care Activity Detail Author Start: 06-03-2024 Patient referral [facility] Work Phone: Start: 06-13-2023 Patient referral [facility] Work Phone: Start: 10-10-2022 Patient referral [facility] Work Phone: Basic metabolic 2008 panel with ionized calcium - Serum or Plasma [facility] CBC W Auto Different ial panel - Blood [facility] CT Abdomen and Pelvi s W contrast IV [facility] Cyclic citrullinated peptide IgG Ab [Units/volume] in Serum or Plasma [facility] Lipid 1996 panel - S mary or Plasma [facility] Patient Education ED Head Injury (Adult) [facility] Work Phone: Patient referral [facility] Work Phone: Procedure [facility] Rheumatoid factor [Presence] in Serum [facility] Urinalysis complete panel - Urine [facility] XR Lumbar spine 2 or 3 Views [facility] Immunizations Immunization Date Immunization Notes Care Provider Valeriano figueroa 10-26-2023 influenza, high dose seasonal, preservative-free Dr. Stephane Titus MD Work Phone: [facility] 10-25-2023 influenza, high dose seasonal, preservative-free Dr. Stephane Titus MD Work Phone: [facility] 10-25-2023 Pfizer Covid-19 (Comirnaty) Dr. Stephane Titus MD Work Phone: [facility] 01-28-2023 Pneumococcal Vaccine PCV20 (Prevnar 20) Dr. Stephane Titus MD Work Phone: [facility] 11-24-2022 RSV Adult Recombinan t (Arexvy) Dr. Stephane Titus MD Work Phone: [facility] 11-09-2022 Pfizer Covid-19 (Comirnaty) Dr. Stephane Titus MD Work Phone: [facility] 10-22-2022 influenza, injectabl e, quadrivalent, preservative free Dr. Stephane Titus MD Work Phone: [facility] 10-21-2021 Covid (Moderna) Dr. Gael Titus MD Work Phone: [facility] 10-21-2021 Influenza High-Dose Quadrivalent Dr. Stephane Titus MD Work Phone: [facility] 05-29-2021 Covid (Moderna) Dr. Gael Titus MD Work Phone: [facility] 12-14-2020 tetanus toxoid, redu taylor diphtheria toxoid, and acellular pertussis vaccine, adsorbed Dr. Stephane Titus MD Work Phone: [facility] 12-10-2020 Covid (Moderna) Dr. Gael Titus MD Work Phone: [facility] 10-28-2020 influenza, high dose seasonal, preservative-free Dr. Stephane Titus MD Work Phone: [facility] 04-14-2020 Covid (Moderna) Dr. Gael Titus MD Work Phone: [facility] 03-17-2020 Covid (Moderna) Dr. Gael Titus MD Work Phone: [facility] 10-23-2019 influenza, high dose seasonal, preservative-free Dr. Stephane Titus MD Work Phone: [facility] 10-09-2018 influenza, high dose seasonal, preservative-free Dr. Stephane Titus MD Work Phone: [facility] 04-08-2018 pneumococcal polysaccharide vaccine, [address] Stephane Titus MD Work Phone: [facility] 10-23-2017 influenza, high dose seasonal, preservative-free Dr. Stephane Titus MD Work Phone: [facility] 06-22-2015 pneumococcal polysaccharide vaccine, [address] Stephane Titus MD Work Phone: [facility] Payers Date Payer Category Payer Self-pay [id number] 2020 Private Health Insurance [facility] [id number] Medicare [id number] Unknown [id number] Unknown [id number] 2.16.8 [id number] Unknown [id number] 2.16.8 [id number] Unknown [id number] 2.16.8 [id number] Unknown [id number] 2.16.8 [id number] Unknown [id number] 2.16.8 [id number] Unknown [id number] 2.16.8 [id number] Unknown [id number] 2.16.8 [id number] Unknown [id number] 2.16.8 [id number] Unknown [id number] 2.16.8 [id number] Unknown [id number] 2.16.8 [id number] Social History Date Type Detail Facility Start: 07-03-2021 End: 01-28-2023 Tobacco smoking status [facility] Unknown if ever smoked [facility] Start: 07-07-2020 Non-smoker [facility] Start: 1940 Sex Assigned At Female [facility] Start: 05-29-2023 Tobacco smoking stat us [facility]IS Never smoked tobacco (finding) [facility] Start: 06-15-2024 Sex Female (finding) [facility] Clinical Notes 06-03-2024 to 09-02-2024 Note Date & Type Note Facility 09-02-2024 Radiology Diagnostic study note [facility] Imaging Services [address] [place] [address] Lumbar Spine 2 or 3 Views MR#: [id number] Acct: [id number] Name: JANE MABRY Rep #: [id number] : [id number] F 84 From: Anni Leonardo MD PCP: Dr. Stephane Titus MD Status: R EG CLI Study:Lumbar Spine 2 or 3 Views Date of Exam: 09/02/24 Exam# [id number] Ordering Dr: Kain Titus MD EXAM: XR Lumbosacral Spine, 2 or 3 Views CLINICAL INDICATION: CHRONIC BACK PAIN TECHNIQUE: Frontal and lateral views of the lumbar spine and sacrum. COMPARISON: No relevant prior studies available. FINDINGS: VERTEBRAE: S shaped scoliosis. Degenerative facet arthropathy throughout the lumbar spine, most prominent in the lower lumbar spine. Normal alignment. No acute fracture. SACRUM/COCCYX: Unremarkable as visualized. No acute fracture. DISC SPACES: Degenerative disc disease throughout the lumbar spine. SOFT TISSUES: Unremarkable. RAD/Lumbar Spine 2 or 3 Views IMPRESSION: 1. No acute fracture. 2. Degenerative changes lumbar spine as described. Reading [facility] CC: Dr. Stephane Titus MD ~ Casing Crew: Signed [facility] 06-03-2024 Evaluation note Diagnosis Onset Date Resolution Bilateral impacted cerumen chronic June 03, 2024 2:05pm Chronic back pain chronic May 192024 2:05pm Dermatitis of nipple chronic Apri 2024 2:05pm Diarrhea chronic June 03 2:05pm Hyperlipidemia chronic May 2:05pm Hypertension chronic June 03, 2024 2:05pm Left foot pain chronic May 2:05pm [facility] Work Phone: [phone]) 175-253204-16-2025 Evaluation note* Diagnosis Onset Date Resolution Status Admit Date Bilateral impacted cerumen chronic June 03, 2024 2:05pm Chronic back pain chronic May 192024 2:05pm Dermatitis of nipple chronic Apr2024 2:05pm Diarrhea chronic June 03 2:05pm Hyperlipidemia chronic May 2:05pm Hypertension chronic June 03, 2024 2:05pm Left foot pain chronic May 2:05pm Elevated rheumatoid factor acute September 02, 2024 1:05pm Chronic back pain chronic September 022024 1:05pm Hyperlipidemia chronic September 02, 2024 1:05pm Hypertension chronic September 02, 2 025 1:05pm Nocturia chronic September 02 1:05pm Overactive bladder chronic August 182024 1:05pm [facility] Work Phone: Evaluation note* Diagnosis Onset Date Resolution Status Bilateral impacted cerumen c hronic Hypertension chronic Osteoarthritis chronic [facility] Work Phone: Evaluation note* Diagnosis Onset Date Resolution Status Age-related cognitive decline acute Breast cancer screening acut e Open wound of left forearm a cute Hypertension chronic Age-related cognitive decline acute Health care maintenance acut e Bilateral impacted cerumen c hronic Hyperlipidemia chronic Hypertension chronic [facility] Work Phone: Evaluation note* Diagnosis Onset Date Resolution Status Disorder of right rotator cuff acute Pain of right deltoid acute Right shoulder pain acute History of partial thyroidectomy acute Stress at home acute Bilateral impacted cerumen c hronic Hypertension chronic Disorder of right rotator cuff acute [facility] Work Phone: Evaluation note* Diagnosis Onset Date Resolution Status History of partial thyroidectomy acute Stress at home acute Bilateral impacted cerumen c hronic Hypertension chronic Disorder of right rotator cuff acute Left foot pain acute Osteoarthritis of left foot acute Open wound of left lower leg acute Breast cancer screening acut e Generalized anxiety disorder chronic Hypertension chronic [facility] Work Phone: Evaluation note* Diagnosis Onset Date Resolution Status Abdominal pain acute Change in bowel habit acute Grief reaction acute Bilateral impacted cerumen c hronic Hyperlipidemia chronic Hypertension chronic [facility] Work Phone: Evaluation note* Diagnosis Onset Date Resolution Status Change in bowel habit acute Grief reaction acute Abdominal pain chronic Bilateral impacted cerumen c hronic Hyperlipidemia chronic Hypertension chronic Abnormal finding on CT scan acute Nodule of right lung acute Abdominal pain chronic Diarrhea chronic [facility] Work Phone: Evaluation note* Diagnosis Onset Date Resolution Status Breast cancer screening acut e Generalized anxiety disorder chronic Hypertension chronic Health care maintenance acut e Generalized anxiety disorder chronic Hyperlipidemia chronic Hypertension chronic Health care maintenance acut e Generalized anxiety disorder chronic Hyperlipidemia chronic Hypertension chronic [facility] Work Phone: Hospital Discharge instructionsAmbulatory Orders* Pain Management Location: None Selected [facility] Work Phone: Chief Complaint and Reason for Visit Chief Complaint OPERATIONS BOARDM[employer], EST. CARE- NPP M LEN Reason for Visit Bilateral impacted c erumen Hypertension Osteoarthritis Chief Complaint 3 M FU SCREENING 3 M FU Reason for Visit Age-related cognitiv e decline Breast cancer screening Open wound of left forearm Hypertension Age-related cognitive decline Health care maintenance Bilateral impacted cerumen Hyperlipidemia Hypertension Chief Complaint RIGHT SHOULDER RM 2 PAIN FU RIGHT SHOULDER Reason for Visit Disorder of right ro tator cuff Pain of right deltoid Right shoulder pain History of partial thyroidectomy Stress at home Bilateral impacted cerumen Hypertension Disorder of right rotator cuff Chief Complaint RIGHT SHOULDER RM 2 PAIN FU RIGHT SHOULDER head injury Reason for Visit Disorder of right ro tator cuff Pain of right deltoid Right shoulder pain History of partial thyroidectomy Stress at home Bilateral impacted cerumen Hypertension Disorder of right rotator cuff Chief Complaint PAIN FU RIGHT SHOULDER head injury LEFT ANKLE room 3 WOUND/LEFT LEG 3 M FU SCREENING Reason for Visit History of partial t hyroidectomy Stress at home Bilateral impacted cerumen Hypertension Disorder of right rotator cuff Left foot pain Osteoarthritis of left foot Open wound of left lower leg Breast cancer screening Generalized anxiety disorder Hypertension Chief Complaint 5 m fu Reason for Visit Abdominal pain Change in bowel habit Grief reaction Bilateral impacted cerumen Hyperlipidemia Hypertension Chief Complaint 5 m fu ABD PAIN 2 WEEKS OF DIARRHEA Reason for Visit Change in bowel habi t Grief reaction Abdominal pain Bilateral impacted cerumen Hyperlipidemia Hypertension Abnormal finding on CT scan Nodule of right lung Abdominal pain Diarrhea Chief Complaint 5 m fu ABD PAIN 2 WEEKS OF DIARRHEA Diarrhea Reason for Visit Change in bowel habi t Grief reaction Abdominal pain Bilateral impacted cerumen Hyperlipidemia Hypertension Abnormal finding on CT scan Nodule of right lung Abdominal pain Diarrhea Chief Complaint 3 M FU SCREENING 6 wk FU 2 M FU Reason for Visit Breast cancer screen ing Generalized anxiety disorder Hypertension Health care maintenance Generalized anxiety disorder Hyperlipidemia Hypertension Health care maintenance Generalized anxiety disorder Hyperlipidemia Hypertension Chief Complaint Admit Date CHK UP June 03, 2024 2:0 5pm ADD EORDER- LUMBAR SPINE June 03 3:18pm NEED ORDER June 10, 2024 2:0 3pm Reason for Visit Admit Date Bilateral impacted cerumen June 03, 025 2:05pm Chronic back pain June 03, 2024 2:0 5pm Dermatitis of nipple June 03, 2024 2: 05pm Diarrhea June 03, 2024 2:0 5pm Hyperlipidemia June 03, 2024 2:0 5pm Hypertension June 03, 2024 2:0 5pm Left foot pain June 03, 2024 2:0 5pm Chief Complaint Admit Date CHK UP June 03, 2024 2:0 5pm ADD EORDER- LUMBAR SPINE June 03 3:18pm NEED ORDER June 10, 2024 2:0 3pm 3 M FU September 02, 2024 1:05 pm Chief Complaint Admit Date CHK UP June 03, 2024 2:0 5pm ADD EORDER- LUMBAR SPINE June 03 3:18pm NEED ORDER June 10, 2024 2:0 3pm 3 M FU September 02, 2024 1:05 pm LUMBAR SPINE 2-3 VIEWS September 02, 2024 2 :42pm Reason for Visit Admit Date Bilateral impacted cerumen June 03, 025 2:05pm Chronic back pain June 03, 2024 2:0 5pm Dermatitis of nipple June 03, 2024 2: 05pm Diarrhea June 03, 2024 2:0 5pm Hyperlipidemia June 03, 2024 2:0 5pm Hypertension June 03, 2024 2:0 5pm Left foot pain June 03, 2024 2:0 5pm Elevated rheumatoid factor September 02 1:05pm Chronic back pain September 02, 2024 1:05 pm Hyperlipidemia September 02, 2024 1:05 pm Hypertension September 02, 2024 1:05 pm Nocturia September 02, 2024 1:05 pm Overactive bladder September 02, 2024 1:05 pm Family History No Family History Records Found Relationship Condition Age at Onset Recorded Date/T jonah mother Malignant neoplasm of colon Unknown Hypertension Unknown sister Hypertension Unknown Malignant neoplasm of breast Unknown father Cardiac disease Unknown brother Diabetes mellitus Unknown Advance Directives No Advanced Directives Records Found Advance Directive Response Recorded Date/ Time Living Will Yes July 07, 2020 2 :18pm Power of Technical Service Specialist Yes July 07, 2020 2:18pm Advance Directive Response Recorded Date/ Time Living Will Yes July 07, 2020 1 :18pm Power of Technical Service Specialist Yes July 07, 2020 1:18pm Advance Directive Response Recorded Date/ Time Name of Medical Power of Technical Service Specialist August 06, 2022 12:36pm Living Will Yes August 06, 2022 12:36pm Power of Technical Service Specialist Yes August 06 12:36pm Advance Directive Response Recorded Date/ Time Living Will Yes August 06, 2022 12:36pm Power of Technical Service Specialist Yes August 06 12:36pm Advance Directive Response Recorded Date/ Time Living Will Yes August 06, 2022 11:36am Power of Technical Service Specialist Yes August 06 11:36am Summary Purpose Additional Source Comments Goals (unrecognized section and content) Goals may be documented in a n alternate sectionGoals may be documented in an alternate sectionGoals may be documented in an alternate sectionGoals may be documented in an alternate sectionGoals may be documented in an alternate sectionGoals may be documented in an alternate sectionGoals may be documented in an alternate sectionGoals may be documented in an alternate sectionGoals may be documented in an alternate sectionGoals may be documented in an alternate sectionGoals may be documented in an alternate sectionGoals may be documented in an alternate sectionGoals may be documented in an alternate sectionGoals may be documented in an alternate sectionGoals may be documented in an alternate section Care Teams (unrecognized sec tion and content) Team Status: Active Member Role Status Dates Dr. Genet Hampton MD Family Provider Active Dr. Stephane Titus MD Primary Care Provider Active Team Status: Inactive Member Role Status Dates Dr. Stephane Titus MD Primary Care P rovicarolyn, Attending Provider, Referring Provider Active Team Status: Inactive Member Role Status Dates Dr. Stephane Titus MD Primary Care Provider, Refer ring Provider Active Kamlesh CANO PA Attending Provider Active Team Status: Inactive Member Role Status Dates Dr. Stephane Titus MD Primary Care Provider Active Dr. Marcial Shaw MD Attending Provider Active Team Status: Inactive Member Role Status Dates Dr. Stephane Titus MD Primary Care Provider Active JEROME Covington Attending Provider, Referring Prov ider Active Team Status: Inactive Member Role Status Dates Dr. Stephane Titus MD Primary Care Provider Active Dr. Bernardino Sandoval DO Emergency Provider Active Team Status: Inactive Member Role Status Dates Dr. Stephane Titus MD Primary Care Provider Active Dr. Bernradino Sandoval DO Attending Provider, Emergency P rovider Active Team Status: Active Member Role Status Dates Dr. Stephane Titus MD Primary Care Provider, Atten ding Provider Active Team Status: Active Member Role Status Dates Dr. Stephane Titus MD Primary Care P rocheyenne, Attending Provider, Referring Provider Active Team Status: Inactive Member Role Status Dates Dr. Stephane Titus MD Primary Care Provider, Atten ding Provider Active Team Status: Inactive Member Role Status Dates Dr. Stephane Titus MD Primary Care Provider Active Dr. rAjun Martinez MD Attending Provider, Referring Provider Active Team Status: Inactive Member Role Status Dates Dr. Stpehane Titus MD Primary Care Provider Active Start: June 03, 2024 End: June 03, 2024 Dr. Stephane Titus MD Attending Provider Active Start: June 03, 2024 End: June 03, 2024 Dr. Stephane Titus MD Referring Provider Active Start: June 03, 2024 End: June 03, 2024 Team Status: Inactive Member Role Status Dates Dr. Stephane Titus MD Primary Care Provider Active Start: June 10, 2024 End: June 10, 2024 Dr. Danie Harris DPM Attending Provider Active Start: June 10, 2024 End: June 10, 2024 Dr. Dnaie Harris DPM Referring Provider Active Start: June 10, 2024 End: June 10, 2024 Team Status: Active Member Role/Relationship Status Dates Dr. Genet Hampton MD Family Provider Active Dr. Stephane Titus MD Primary Care Provider Active Team Status: Inactive Member Role/Relationship Status Dates Dr. Stephane Titus MD Primary Care Provider Active Start: June 03, 2024 End: June 03, 2024 Dr. Stephane Titus MD Attending Provider Active Start: June 03, 2024 End: June 03, 2024 Dr. Stephane Titus MD Referring Provider Active Start: June 03, 2024 End: June 03, 2024 Team Status: Inactive Member Role/Relationship Status Dates Dr. Stephane Titus MD Primary Care Provider Active Start: June 03, 2024 End: June 03, 2024 Dr. Stephane Titus MD Attending Provider Active Start: June 03, 2024 End: June 03, 2024 Dr. Stephane Titus MD Referring Provider Active Start: June 03, 2024 End: June 03, 2024 Team Status: Inactive Member Role/Relationship Status Dates Dr. Stephane Titus MD Primary Care Provider Active Start: June 10, 2024 End: June 10, 2024 Dr. Danie Harris DPM Attending Provider Active Start: June 10, 2024 End: June 10, 2024 Dr. Danie Harris DPM Referring Provider Active Start: June 10, 2024 End: June 10, 2024 Team Status: Inactive Member Role/Relationship Status Dates Dr. Stephane Titus MD Primary Care Provider Active Start: September 02, 2024 End: September 02, 2024 Dr. Stephane Titus MD Attending Provider Active Start: September 02, 2024 End: September 02, 2024 Dr. Stephane Titus MD Referring Provider Active Start: September 02, 2024 End: September 02, 2024 Team Status: Inactive Member Role/Relationship Status Dates Dr. Stephane Titus MD Primary Care Provider Active Start: September 02, 2024 End: September 02, 2024 Dr. Stephane Titus MD Attending Provider Active Start: September 02, 2024 End: September 02, 2024 Dr. Stephane Titus MD Referring Provider Active Start: September 02, 2024 End: September 02, 2024 INFORMATION SOURCE (unrecogn ized section and content) DATE CREATED AUTHOR 10/07/2024 [facility] FOR RECORDS PERTAINING TO PATIENTS WHO ARE OR HAVE BEEN ENROLLED IN A CHEMICAL DEPENDENCY/SUBSTANCEABUSE PROGRAM, SOME INFORMATION MAY BE OMITTED. This clinical summary was aggregated from multiple sources. Caution should be exercised in using it in the provision of clinical care. This summary normalizes information from multiple sources, and as a consequence, information in this document may materially change the coding, format and clinical context of patient data. In addition, data may be omitted in some cases. CLINICAL DECISIONS SHOULD BE BASED ON THE PRIMARY CLINICAL RECORDS. [employer] provides no warranty or guarantee of the accuracy or completeness of information in this document.
== END | disposition home or self-care (01) ==
LOC: MRI 15:14
PROVIDERS: PCP Internal Medicine; Referring Provider Anesthesiology; Visit Provider Anesthesiology
DX: M47.816 Spondylosis without myelopathy or radiculopathy, lumbar region (principal)
CPT/HCPCS: 72148

== ENCOUNTER → 2024-12-04 | Outpatient (CLI) | payer MEDICARE, SELFPAY ==
[2024-12-04 12:34] LABS: Hematocrit 37.8 % (37-47); Hemoglobin 12.2 g/dL (12.0-15.0); Immature Granulocytes Count 0.040 X10^3/uL (0.0-0.0); Mean Corp Hgb Conc 32.3 g/dL (32-36); Mean Corpuscular Volume 93.6 fL (81-99); Mean Platelet Vol. 12.1 fl (6.2-12.0); NRBC Flagged by Analyzer 0 % (0-5); Platelet Count 289 K/mm3 (150-450); RBC Distribution Width CV 12.9 % (11.6-14.6); RBC Distribution Width SD 44.4 fl (35.1-43.9); Red Blood Count 4.04 M/mm3 (4.2-5.4); White Blood Count 8.6 K/mm3 (4.4-11.0)
[2024-12-04 13:13] LABS: AST(SGOT) 29 U/L (<=31); Alanine Aminotransfer ALT/SGPT 23 U/L (<=34); Albumin, Serum 4.2 g/dL (3.4-4.8); Alkaline Phosphatase 67 U/L (35-104); Anion Gap 9 (5-15); BUN 15 mg/dL (4-19); BUN/Creat Ratio 15.4 RATIO (10-20); Calcium,Total 10.0 mg/dL (7.6-11.0); Carbon Dioxide 28.3 mmol/L (21.0-32.0); Chloride 97 mmol/L (98-108); Globulin 2.7 g/dL (2.2-4.2); Glucose 88 mg/dL (70-99); Potassium 4.1 mmol/L (3.3-5.1)
== END | disposition home or self-care (01) ==
LOC: MTLAB 10:26
PROVIDERS: PCP Internal Medicine; Referring Provider Nurse Practitioner Family; Visit Provider Nurse Practitioner Family
DX: I12.9 Hypertensive chronic kidney disease with stage 1 through stage 4 chronic kidney disease, or unspecified chronic kidney disease (principal); N18.30 Chronic kidney disease, stage 3 unspecified; E89.0 Postprocedural hypothyroidism; E78.5 Hyperlipidemia, unspecified
CPT/HCPCS: 36415; 80053; 84443; 85025